=== PATIENT | male | born 1945 | race Caucasian/White ===

== ENCOUNTER 2017-07-30 15:54 | Emergency (ER) | payer MEDICARE, OTHER ==
[~2017-07-30] VITALS: Ht 177.8 cm; Wt 129.3 kg
[2017-07-30 16:10] VITALS: BP 154/70
[2017-07-30] MEDS ORDERED: TETANUS-DIPTH-ACEL PERTUSSIS 0.5ML SYRG IM ONE (17:15)
== END 2017-07-30 17:56 | disposition home or self-care (01) ==
LOC: ER 15:54
DX: S61.412A Laceration without foreign body of left hand, initial encounter (principal); I10 Essential (primary) hypertension; J44.9 Chronic obstructive pulmonary disease, unspecified; Z87.891 Personal history of nicotine dependence; W26.8XXA Contact with other sharp object(s), not elsewhere classified, initial encounter; Y93.89 Activity, other specified; Y92.89 Other specified places as the place of occurrence of the external cause; Y99.8 Other external cause status
CPT/HCPCS: 12001; 90471; 90715

== ENCOUNTER 2021-04-21 09:59 | Inpatient (IN) | payer MEDICARE, OTHER ==
[~2021-04-21] VITALS: Ht 177.8 cm; Wt 105.5 kg
[2021-04-21 10:40] LABS: Basophils # (auto) 0 10 ^3/uL (0-0.2); Basophils % (auto) 0.5 % (0.0-2.0); Eosinophils # (auto) 0 10 ^3/uL (0-0.8); Eosinophils % (auto) 0.6 % (0.0-7.0); Hematocrit 44.7 % (41.0-53.0); Hemoglobin 15.6 g/dL (13.5-17.5); Lymphocytes # (auto) 0.6 10 ^3/uL (0.4-5.4); Mean Corpuscular Hemoglobin 32.8 pg (28.0-32.0); Mean Corpuscular Hgb Conc. 34.8 g/dL (32.0-36.0); Mean Corpuscular Volume 94.4 fL (80.0-100.0); Monocytes # (auto) 0.7 10 ^3/uL (0-1.3); Neutrophils # (auto) 3.8 10 ^3/uL (1.6-8.6); Neutrophils % (auto) 73.9 % (37.0-80.0); Nucleated Red Blood Cells % 0.5 %; Red Blood Cells 4.74 10^6/uL (4.5-5.90); Red Cell Distribution Width 14.2 % (11.8-14.3); White Blood Cell 5.2 10^3/uL (4.4-10.8)
[2021-04-21 11:13] LABS: Albumin 2.6 g/dL (3.4-5.0); Calcium 8.1 mg/dL (8.5-10.1); Potassium 3.9 mmol/L (3.5-5.1)
[2021-04-21 11:30] LABS: Bilirubin, Total 0.6 mg/dL (0.2-1.0); Total Protein 8.2 g/dL (6.4-8.2)
[2021-04-21 11:37] LABS: Lactic Acid w/Reflex 2.2 mmol/L (0.4-2.0)
[2021-04-21 12:06] LABS: BUN/Creatinine Ratio 12.1
[2021-04-21] MEDS ORDERED: CHOLECALCIFEROL (VITD3) 2,000 UNIT CAP/TAB PO ONE (12:15)
[2021-04-21] MEDS ORDERED: ZINC SULFATE 220mg CAP or TAB PO ONE (12:15)
[2021-04-21] MEDS ORDERED: cefTRIAXone 1GM/50ML D5W 50 ML IV ONE (12:15)
[2021-04-21] MEDS ORDERED: SPIRONOLACTONE 25 MG TAB PO ONE (12:15)
[2021-04-21] MEDS ORDERED: AZITHROMYCIN 500MG/ 250ML 250 ML IV ONE (12:15)
[2021-04-21] MEDS ORDERED: FUROSEMIDE 40 MG/4 ML VIAL IV ONE (12:15)
[2021-04-21] MEDS ORDERED: ASCORBIC ACID 500 MG TAB PO ONE (12:15)
[2021-04-21] MEDS ORDERED: DexAMETHasone SOD PHOS 10MG/1ML VIAL INJ IV ONE (12:45)
[2021-04-21 13:30] LABS: Urine Bacteria NONE SEEN /hpf (None Seen); Urine Blood TRACE /uL (Negative); Urine Hyaline Cast FEW /lpf (0 - 2); Urine Mucus FEW (None Seen); Urine Specific Gravity 1.015 (1.001-1.035); Urine WBC 2 /hpf (0 - 3)
[2021-04-21] MEDS ORDERED: MORPHINE SULFATE INJECTION 2 MG/ML SYRG IV PRN (14:15)
[2021-04-21] MEDS ORDERED: NITROGLYCERIN 0.4 MG SL TAB SL PRN (14:15)
[2021-04-21 17:29] VITALS: BP 119/63
[2021-04-21] MEDS ORDERED: REMDESIVIR PER PHARMACY 0 ML IV SCH (18:30)
[2021-04-21] MEDS ORDERED: ACETAMINOPHEN 500 MG TAB PO PRN (18:30)
[2021-04-21] MEDS ORDERED: DEXTROSE (50%) 50ML SYRG IV PRN (18:30)
[2021-04-21] MEDS ORDERED: DOCUSATE SOD 100 MG CAP PO PRN (18:45)
[2021-04-21] MEDS ORDERED: ONDANSETRON HCL 4 MG/2 ML VIAL IV PRN (18:45)
[2021-04-21] MEDS ORDERED: LORazepam 0.5 MG TAB PO PRN (18:45)
[2021-04-21] MEDS ORDERED: FAMOTIDINE (10MG/ML) 2ML VL IV ONE (18:45)
[2021-04-21] MEDS ORDERED: MORPHINE SULFATE 4 MG/ML SYR/VIAL IV PRN (18:45)
[2021-04-21] MEDS ORDERED: CLINDAMYCIN 600MG IV 50 ML IV ONE (19:00)
[2021-04-21 20:00] VITALS: BP 97/44
[2021-04-21] MEDS ORDERED: REMDESIVIR 200 MG in NS 210ml LOADING DOSE ADULT IV ONE (20:30)
[2021-04-21 20:46] LABS: Hemoglobin 15.2 g/dL (13.5-17.5)
[2021-04-21 20:48] LABS: Hematocrit 41.9 % (41.0-53.0); Mean Corpuscular Hemoglobin 35.6 pg (28.0-32.0); Mean Corpuscular Hgb Conc. 36.3 g/dL (32.0-36.0); Mean Corpuscular Volume 98.3 fL (80.0-100.0); Red Blood Cells 4.26 10^6/uL (4.5-5.90); Red Cell Distribution Width 14.4 % (11.8-14.3); White Blood Cell 3.4 10^3/uL (4.4-10.8)
[2021-04-21 20:54] LABS: Basophils % (manual) 0 (0.0-2.0); Blast Cells 0; Eosinophils % (manual) 0 (0-7); Myelocytes % 0; Promyelocytes % 0; Reactive Lymphocytes 0
[2021-04-21 21:02] LABS: INR 1.29 (0.9-1.15); Partial Thromboplastin Time 30.5 sec (23.6-33.0)
[2021-04-21 21:05] LABS: Albumin 2.5 g/dL (3.4-5.0); Calcium 8.2 mg/dL (8.5-10.1); Magnesium 3.1 mg/dL (1.6-2.6); Potassium 4.5 mmol/L (3.5-5.1)
[2021-04-21 21:11] LABS: Phosphorus 3.2 mg/dL (2.5-4.90)
[2021-04-21 21:13] LABS: BUN/Creatinine Ratio 17.5; Bilirubin, Total 0.7 mg/dL (0.2-1.0); CRP High Sensitivity 13.7 mg/dL (< 0.3); Total Protein 8.2 g/dL (6.4-8.2)
[2021-04-21 21:19] LABS: Thyroid Stimulating Hormone 0.55 uIU/mL (0.358-3.74)
[2021-04-21 22:00] VITALS: BP 112/63
[2021-04-21] MEDS: BUDESONIDE (INHALATION) 180 MCG IH IN SCH (22:00)
[2021-04-21] MEDS: DOXYCYCLINE 100MG/250ML 250 ML IV SCH (22:09)
[2021-04-21] MEDS: POTASSIUM CHL 20 Meq TABLET PO SCH (22:10)
[2021-04-21] MEDS: ATORVASTATIN 20 MG TAB PO SCH (22:10)
[2021-04-21] MEDS: ENOXAPARIN SOD 40 MG/0.4 ML SYRINGE SC SCH (22:11)
[2021-04-21] MEDS: ACCU-CHEK COMFORT CURVE STRIP VI SCH (22:12)
[2021-04-21] MEDS: InsuLIN REG 1unit/0.01ml Soln (100units/ml) SC SCH (22:17)
[2021-04-21 22:52] LABS: Band Neutrophils % (manual) 4; Lymphocytes % (manual) 13 (10.0-50.0); Metamyelocytes % 1; Monocytes % (manual) 5 (0-12)
[2021-04-22 02:33] VITALS: BP 97/44
[2021-04-22 05:00] VITALS: BP 111/68
[2021-04-22] MEDS ORDERED: FUROSEMIDE 20 MG/2 ML VIAL IV SCH (06:00)
[2021-04-22] MEDS: CLINDAMYCIN 600MG IV 50 ML IV SCH ×3 (06:54→22:13)
[2021-04-22] MEDS: ACCU-CHEK COMFORT CURVE STRIP VI SCH ×4 (06:56→22:14)
[2021-04-22] MEDS: InsuLIN REG 1unit/0.01ml Soln (100units/ml) SC SCH ×5 (06:58→22:32)
[2021-04-22 07:01] LABS: Basophils # (auto) 0 10 ^3/uL (0-0.2); Basophils % (auto) 0.4 % (0.0-2.0); Eosinophils # (auto) 0 10 ^3/uL (0-0.8); Hematocrit 44.7 % (41.0-53.0); Hemoglobin 15.7 g/dL (13.5-17.5); Lymphocytes # (auto) 0.7 10 ^3/uL (0.4-5.4); Lymphocytes % (auto) 17.4 % (10.0-50.0); Mean Corpuscular Hemoglobin 33.9 pg (28.0-32.0); Mean Corpuscular Hgb Conc. 35.1 g/dL (32.0-36.0); Mean Corpuscular Volume 96.4 fL (80.0-100.0); Monocytes # (auto) 0.6 10 ^3/uL (0-1.3); Monocytes % (auto) 14.9 % (0.0-12.0); Neutrophils # (auto) 2.7 10 ^3/uL (1.6-8.6); Neutrophils % (auto) 67.3 % (37.0-80.0); Nucleated Red Blood Cells % 0.5 %; Red Blood Cells 4.64 10^6/uL (4.5-5.90); Red Cell Distribution Width 14.1 % (11.8-14.3)
[2021-04-22 07:13] LABS: INR 1.28 (0.9-1.15); Partial Thromboplastin Time 31.1 sec (23.6-33.0)
[2021-04-22] MEDS: BUDESONIDE (INHALATION) 180 MCG IH IN SCH ×2 (07:26→22:39)
[2021-04-22 07:31] LABS: Potassium 4.1 mmol/L (3.5-5.1)
[2021-04-22 08:06] LABS: BUN/Creatinine Ratio 21.2
[2021-04-22 08:07] LABS: Albumin 2.1 g/dL (3.4-5.0); Bilirubin, Total 0.6 mg/dL (0.2-1.0); Magnesium 2.5 mg/dL (1.6-2.6); Phosphorus 2.8 mg/dL (2.5-4.90); Total Protein 7.7 g/dL (6.4-8.2); Uric Acid 6.8 mg/dL (3.5-7.2)
[2021-04-22 09:00] VITALS: BP 113/55
[2021-04-22] MEDS ORDERED: ASPirin 81 mg TAB PO SCH (10:00)
[2021-04-22] MEDS ORDERED: FAMOTIDINE (10MG/ML) 2ML VL IV SCH (10:00)
[2021-04-22] MEDS: ASCORBIC ACID 1,000 MG TAB PO SCH (10:57)
[2021-04-22] MEDS: POTASSIUM CHL 20 Meq TABLET PO SCH (10:57)
[2021-04-22] MEDS: IVERMECTIN 3 MG TAB PO SCH (10:57)
[2021-04-22] MEDS: DOXYCYCLINE 100MG/250ML 250 ML IV SCH ×2 (10:59→22:14)
[2021-04-22] MEDS: ENOXAPARIN SOD 40 MG/0.4 ML SYRINGE SC SCH ×2 (10:59→22:13)
[2021-04-22] MEDS: DexAMETHasone SOD PHOS 10MG/1ML VIAL INJ IV SCH (11:00)
[2021-04-22] MEDS: CHOLECALCIFEROL (VITD3) 2,000 UNIT CAP/TAB PO SCH (11:00)
[2021-04-22 13:00] VITALS: BP 109/59
[2021-04-22] MEDS: REMDESIVIR 100mg 100 MG in SODIUM CHL 0.9% 230 ML IV SCH (15:59)
[2021-04-22 17:02] VITALS: BP 116/59
[2021-04-22] MEDS ORDERED: METF-370 PO (20:06)
[2021-04-22 22:00] VITALS: BP 96/61
[2021-04-22] MEDS: ATORVASTATIN 20 MG TAB PO SCH (22:12)
[2021-04-22] MEDS: ALBUTEROL SULF HFA 90MCG INH 200DOSE IN PRN (23:58)
[2021-04-23 05:07] VITALS: BP 115/58
[2021-04-23 06:09] LABS: Basophils # (auto) 0 10 ^3/uL (0-0.2); Eosinophils # (auto) 0 10 ^3/uL (0-0.8); Lymphocytes # (auto) 0.6 10 ^3/uL (0.4-5.4); Monocytes # (auto) 0.7 10 ^3/uL (0-1.3); Red Cell Distribution Width 14.3 % (11.8-14.3)
[2021-04-23 06:11] LABS: Basophils % (auto) 0.9 % (0.0-2.0); Eosinophils % (auto) 0.2 % (0.0-7.0); Hematocrit 44.2 % (41.0-53.0); Hemoglobin 15.8 g/dL (13.5-17.5); Lymphocytes % (auto) 12.4 % (10.0-50.0); Mean Corpuscular Hemoglobin 34.3 pg (28.0-32.0); Mean Corpuscular Hgb Conc. 35.8 g/dL (32.0-36.0); Mean Corpuscular Volume 95.9 fL (80.0-100.0); Monocytes % (auto) 13.8 % (0.0-12.0); Neutrophils # (auto) 3.5 10 ^3/uL (1.6-8.6); Neutrophils % (auto) 72.7 % (37.0-80.0); Nucleated Red Blood Cells % 0.1 %; Red Blood Cells 4.61 10^6/uL (4.5-5.90); White Blood Cell 4.9 10^3/uL (4.4-10.8)
[2021-04-23 06:28] LABS: BUN/Creatinine Ratio 24.1; Potassium 4.2 mmol/L (3.5-5.1)
[2021-04-23 06:29] LABS: Albumin 2.4 g/dL (3.4-5.0); Calcium 8.8 mg/dL (8.5-10.1)
[2021-04-23 06:31] LABS: Bilirubin, Total 0.6 mg/dL (0.2-1.0); Total Protein 7.9 g/dL (6.4-8.2)
[2021-04-23] MEDS: CLINDAMYCIN 600MG IV 50 ML IV SCH (06:38)
[2021-04-23] MEDS: ACCU-CHEK COMFORT CURVE STRIP VI SCH ×4 (06:41→21:45)
[2021-04-23] MEDS: InsuLIN REG 1unit/0.01ml Soln (100units/ml) SC SCH ×4 (06:44→21:46)
[2021-04-23 09:00] VITALS: BP 109/58
[2021-04-23] MEDS: BUDESONIDE (INHALATION) 180 MCG IH IN SCH ×2 (10:00→20:13)
[2021-04-23] MEDS: DexAMETHasone SOD PHOS 10MG/1ML VIAL INJ IV SCH (10:00)
[2021-04-23] MEDS ORDERED: traMADol HCL 50 MG TAB PO PRN (10:30)
[2021-04-23] MEDS: ASCORBIC ACID 1,000 MG TAB PO SCH (11:21)
[2021-04-23] MEDS: ENOXAPARIN SOD 40 MG/0.4 ML SYRINGE SC SCH ×2 (11:22→21:44)
[2021-04-23] MEDS: CHOLECALCIFEROL (VITD3) 2,000 UNIT CAP/TAB PO SCH (11:22)
[2021-04-23] MEDS: DOXYCYCLINE 100MG/250ML 250 ML IV SCH ×2 (11:26→21:45)
[2021-04-23 12:33] VITALS: BP 112/67
[2021-04-23] MEDS: IVERMECTIN 3 MG TAB PO SCH (13:01)
[2021-04-23] MEDS: ALBUTEROL SULF HFA 90MCG INH 200DOSE IN PRN ×2 (16:21→21:01)
[2021-04-23 17:00] VITALS: BP 117/64
[2021-04-23] MEDS: REMDESIVIR 100mg 100 MG in SODIUM CHL 0.9% 230 ML IV SCH (18:24)
[2021-04-23] MEDS: ATORVASTATIN 20 MG TAB PO SCH (21:44)
[2021-04-23 22:08] VITALS: BP 116/74
[2021-04-24 05:07] VITALS: BP 115/51
[2021-04-24] MEDS: ACCU-CHEK COMFORT CURVE STRIP VI SCH ×4 (06:54→22:00)
[2021-04-24] MEDS: InsuLIN REG 1unit/0.01ml Soln (100units/ml) SC SCH ×4 (06:54→23:27)
[2021-04-24 08:04] LABS: Chloride 103 mmol/L (98-107); Potassium 3.7 mmol/L (3.5-5.1); Sodium 132 mmol/L (136-145)
[2021-04-24 08:17] LABS: Alanine Aminotransferase 27 U/L (16-61); Albumin 2.2 g/dL (3.4-5.0); Alkaline Phosphatase 82 U/L (45-117); Anion Gap 7 (5-15); Aspartate Aminotransferase 47 U/L (15-37); BUN/Creatinine Ratio 24.1; Blood Urea Nitrogen 14 mg/dL (7-18); Calcium 8.8 mg/dL (8.5-10.1); Carbon Dioxide 22 mmol/L (21-32); GFR African American 176 mL/min; GFR Non-African American 145 mL/min; Glucose 145 mg/dL (74-106); Total Protein 7.1 g/dL (6.4-8.2)
[2021-04-24] MEDS: BUDESONIDE (INHALATION) 180 MCG IH IN SCH ×2 (08:20→21:01)
[2021-04-24] MEDS: ALBUTEROL SULF HFA 90MCG INH 200DOSE IN PRN ×2 (08:21→21:02)
[2021-04-24 08:27] LABS: Bilirubin, Total 0.7 mg/dL (0.2-1.0)
[2021-04-24 09:00] VITALS: BP 110/59
[2021-04-24] MEDS: CHOLECALCIFEROL (VITD3) 2,000 UNIT CAP/TAB PO SCH (10:00)
[2021-04-24] MEDS: ASCORBIC ACID 1,000 MG TAB PO SCH (10:00)
[2021-04-24] MEDS: ENOXAPARIN SOD 40 MG/0.4 ML SYRINGE SC SCH ×2 (10:00→23:28)
[2021-04-24] MEDS: IVERMECTIN 3 MG TAB PO SCH (10:00)
[2021-04-24 12:36] VITALS: BP 123/65
[2021-04-24] MEDS: DexAMETHasone SOD PHOS 4 MG/1ML SDV INJ IV SCH (16:30)
[2021-04-24] MEDS: DOXYCYCLINE 100MG/250ML 250 ML IV SCH ×2 (16:30→23:28)
[2021-04-24 17:00] VITALS: BP 109/61
[2021-04-24] MEDS: REMDESIVIR 100mg 100 MG in SODIUM CHL 0.9% 230 ML IV SCH (19:06)
[2021-04-24 22:00] VITALS: BP 118/56
[2021-04-24] MEDS: ATORVASTATIN 20 MG TAB PO SCH (23:28)
[2021-04-25 05:00] VITALS: BP 98/49
[2021-04-25] MEDS: InsuLIN REG 1unit/0.01ml Soln (100units/ml) SC SCH ×4 (06:46→22:21)
[2021-04-25] MEDS: ACCU-CHEK COMFORT CURVE STRIP VI SCH ×4 (07:00→22:00)
[2021-04-25 08:04] LABS: Calcium 9.3 mg/dL (8.5-10.1)
[2021-04-25 08:09] LABS: Albumin 2.5 g/dL (3.4-5.0); BUN/Creatinine Ratio 17.6; Bilirubin, Total 0.8 mg/dL (0.2-1.0); Total Protein 7.8 g/dL (6.4-8.2)
[2021-04-25 09:00] VITALS: BP 113/56
[2021-04-25] MEDS: ALBUTEROL SULF HFA 90MCG INH 200DOSE IN PRN (09:45)
[2021-04-25] MEDS: BUDESONIDE (INHALATION) 180 MCG IH IN SCH ×2 (09:45→22:00)
[2021-04-25] MEDS: DOXYCYCLINE 100MG/250ML 250 ML IV SCH ×2 (10:00→22:15)
[2021-04-25] MEDS: ASCORBIC ACID 1,000 MG TAB PO SCH (10:00)
[2021-04-25] MEDS: IVERMECTIN 3 MG TAB PO SCH (10:00)
[2021-04-25] MEDS: ENOXAPARIN SOD 40 MG/0.4 ML SYRINGE SC SCH ×2 (10:00→22:16)
[2021-04-25] MEDS: DexAMETHasone SOD PHOS 4 MG/1ML SDV INJ IV SCH (10:00)
[2021-04-25] MEDS: CHOLECALCIFEROL (VITD3) 2,000 UNIT CAP/TAB PO SCH (10:00)
[2021-04-25 13:00] VITALS: BP 135/73
[2021-04-25] MEDS: REMDESIVIR 100mg 100 MG in SODIUM CHL 0.9% 230 ML IV SCH (15:00)
[2021-04-25 18:19] VITALS: BP 122/68
[2021-04-25 22:00] VITALS: BP 123/58
[2021-04-25] MEDS: ATORVASTATIN 20 MG TAB PO SCH (22:15)
[2021-04-26] MEDS: ALBUTEROL SULF HFA 90MCG INH 200DOSE IN PRN ×2 (03:24→11:28)
[2021-04-26 05:00] VITALS: BP 98/40
[2021-04-26] MEDS: ACCU-CHEK COMFORT CURVE STRIP VI SCH ×3 (06:24→17:00)
[2021-04-26] MEDS: InsuLIN REG 1unit/0.01ml Soln (100units/ml) SC SCH ×3 (06:45→17:00)
[2021-04-26 08:00] VITALS: BP 118/55
[2021-04-26 09:00] VITALS: BP 118/55
[2021-04-26] MEDS: DOXYCYCLINE 100MG/250ML 250 ML IV SCH (10:27)
[2021-04-26] MEDS: CHOLECALCIFEROL (VITD3) 2,000 UNIT CAP/TAB PO SCH (10:27)
[2021-04-26] MEDS: IVERMECTIN 3 MG TAB PO SCH (10:27)
[2021-04-26] MEDS: DexAMETHasone SOD PHOS 4 MG/1ML SDV INJ IV SCH (10:27)
[2021-04-26] MEDS: ASCORBIC ACID 1,000 MG TAB PO SCH (10:27)
[2021-04-26] MEDS: ENOXAPARIN SOD 40 MG/0.4 ML SYRINGE SC SCH (10:28)
[2021-04-26] MEDS: BUDESONIDE (INHALATION) 180 MCG IH IN SCH (11:28)
[2021-04-26 13:00] VITALS: BP 134/59
[2021-04-26 15:17] VITALS: BP 119/60
[2021-04-26 17:00] VITALS: BP 125/49
== END 2021-04-26 18:01 | disposition home or self-care (01) | DRG 871 ==
LOC: ER 09:59 → TELE 14:02 → TELE-WESTW 15:49
PROVIDERS: ADMIT Hospitalist; ATTEND Internal Medicine
PROC: XW033E5 Introduction of Remdesivir Anti-infective into Peripheral Vein, Percutaneous Approach, New Technology Group 5 (ICD-10-PCS; principal; 2021-04-21)
PROC: 05HC33Z Insertion of Infusion Device into Left Basilic Vein, Percutaneous Approach (ICD-10-PCS; 2021-04-24)
PROC: B54NZZA Ultrasonography of Left Upper Extremity Veins, Guidance (ICD-10-PCS; 2021-04-24)
DX: A41.89 Other specified sepsis (principal); U07.1 COVID-19; J12.82 Pneumonia due to coronavirus disease 2019; J96.01 Acute respiratory failure with hypoxia; E44.0 Moderate protein-calorie malnutrition; L03.116 Cellulitis of left lower limb; J44.0 Chronic obstructive pulmonary disease with (acute) lower respiratory infection; D89.839 Cytokine release syndrome, grade unspecified; I87.2 Venous insufficiency (chronic) (peripheral); E88.09 Other disorders of plasma-protein metabolism, not elsewhere classified; Z68.33 Body mass index [BMI] 33.0-33.9, adult; E11.51 Type 2 diabetes mellitus with diabetic peripheral angiopathy without gangrene; E66.01 Morbid (severe) obesity due to excess calories; E78.5 Hyperlipidemia, unspecified; F17.200 Nicotine dependence, unspecified, uncomplicated; I11.9 Hypertensive heart disease without heart failure; Z79.82 Long term (current) use of aspirin; Z85.118 Personal history of other malignant neoplasm of bronchus and lung
CPT/HCPCS: 36415; 71045; 73620; 80053; 80061; 81001; 82306; 82728; 82962; 83036; 83605; 83615; 83735; 83880; 84100; 84443; 84484; 84550; 85007; 85025; 85027; 85379; 85610; 85730; 86141; 87040; 87077; 87086; 87186; 87426; 93005; 93970; 94640; 97110; 97116; 97163; 97530; G0378; J0696; J1100; J1815; J3490

== ENCOUNTER 2024-05-01 16:21 | Inpatient (IN) | payer MEDICARE, OTHER ==
[~2024-05-01] VITALS: Ht 182.9 cm; Wt 109.8 kg
[~2024-05-01 16:21] MED LIST: METF-370 PO
--- NOTE | 2024-05-01 17:13 | ED.PDOC ---
HPI Comments 78Y M with PMHx DM, HTN, COPD, and Afib presents to ED via EMS for chief complaint SOB with BLE weakness. Per EMS, 911 has been called 4 times today for lift assist. Pt currently lives with caregiver. Per pt, while sitting at the edge of his bed at home, he would begin to "slump down". Pt is a poor historian. Pt states he is on a blood thinner. Upon ED arrival, pt noted to have bilateral lower extremity cyanosis. No other symptoms reported. Chief Complaint: Shortness of Breath Time Seen by MD: 16:30 Primary Care Provider: MAXIME Reviewed Notes: Nurses Notes, [place] Notes, Medications, Allergies Allergies: Coded Allergies: NO KNOWN ALLERGIES (Unverified , 07/30/17) Home Meds Reported Medications Metformin Hydrochloride (Metformin Hcl) 500 Mg Tab, 500 MG PO BID for 30 Days, MG 04/22/21 Information Source: Patient, Emergency Med Personnel Mode of Arrival: EMS Brought in by: EMS Severity: Severe Timing: Days Duration: Since onset Onset: At Rest Cardiac Risk Factors: HTN, Diabetes PE Risk Factors: None History of: None Modifying Factors: Nothing Associated Signs and Symptoms: SOB, Other Past Medical History PAST MEDICAL HISTORY: COPD, DM, HTN Surgical History: Denies all surgeries Family History Family History: Reviewed,noncontributory to illness, No family hx of Cancer, No family hx of DM, No family hx of Heart rosa, No family hx of HTN, No family hx ofKidney rosa, No family hx of Liver rosa, No family hx of Lung rosa, No family hx of Stroke Social History Smoker: Non-Smoker Alcohol: Denies ETOH Use Drugs: Denies Drug Use Lives In: Home Constitutional: reports: weakness; denies: chills, diaphoresis, fatigue, fever, malaise, sweats, others EENTM: denies: blurred vision, double vision, ear bleeding, ear discharge, ear drainage, ear pain, ear ringing, eye pain, eye redness, hearing loss, mouth pain, mouth swelling, nasal discharge, nose bleeding, nose congestion, nose pain, photophobia, tearing, throat pain, throat swelling, voice changes, others Respiratory: reports: shortness of breath; denies: cough, hemoptysis, orthopnea, SOB at rest, SOB with excertion, stridor, wheezing, others Cardiovascular: denies: chest pain, dizzy spells, diaphoresis, Dyspnea on exertion, edema, irregular heart beat, left arm pain, lightheadedness, palpitations, PND, syncope, others Gastrointestinal: denies: abdomen distended, abdominal pain, blood streaked bowels, constipated, diarrhea, dysphagia, difficulty swallowing, hematemesis, melena, nausea, poor appetite, poor fluid intake, rectal bleeding, rectal pain, vomiting, others Genitourinary: denies: burning, dysuria, flank pain, frequency, hematuria, incontinence, penile discharge, penile sore, pain, testicle pain, testicle swelling, urgency, others Neurological: denies: dizziness, fainting, headache, left sided numbness, left sided weakness, numbness, paresthesia, pre-existing deficit, right sided numbness, right sided weakness, seizure, speech problems, tingling, tremors, weakness, others Musculoskeletal: denies: back pain, gout, joint pain, joint swelling, muscle pain, muscle stiffness, neck pain, others Integumetry: reports: change in color; denies: bruises, change in hair/nails, dryness, laceration, lesions, lumps, rash, wounds, others Allergic/Immunocompromised: denies: Difficulty Healing, Frequent Infections, Hives, Itching, others Hematologic/Lymphatic: denies: anemia, blood clots, easy bleeding, easy bruising, swollen glands, others Endocrine: denies: excessive hunger, excessive sweating, excessive thirst, excessive urination, flushing, intolerance to cold, intolerance to heat, unexplained weight gain, unexplained weight loss, others Psychiatric: denies: anxiety, bipolar disorder, depression, hopeless, panic disorder, schizophrenia, sleepless, suicidal, others All Other Systems: Reviewed and Negative Physical Exam General Appearance: Moderate Distress, Obese HEENT: Normal ENT Inspection, Pharynx Normal, TMs Normal Neck: Full Range of Motion, Non-Tender, Normal, Normal Inspection Respiratory: Decreased Breath Sounds (left lung), Wheezing (right lung) Cardiovascular: No Edema, No JVD, No Murmur, No Gallop, Normal Peripheral Pulses, Regular Rate/Rhythm Breast Exam: Deferred Gastrointestinal: No Organomegaly, Non Tender, No Pulsatile Mass, Normal Bowel Sounds, Soft Genitalia: Deferred Pelvic: Deferred Rectal: Deferred Extremities: No calf tenderness, Non-tender Musculoskeletal : Apperance: Normal Neurologic: Alert, green inspector II-XII nml as Tested, No Motor Deficits, Normal Affect, Normal Mood, No Sensory Deficits Cerebellar Function: Normal Reflexes: Normal Skin: Cyanosis (BLE) Lymphatic: No Adenopathy Was a procedure done? Was a procedure done?: No CP Differential Dx Differential Diagnosis: A-fib, Electrolyte Disorder X-Ray, Labs, Meds, VS Vital Signs Date Time Temp Pulse Resp B/P (MAP) Pulse Ox O2 Delivery O2 Flow Rate FiO2 05/02/24 00:00 149 24 109/76 (87) 90 05/01/24 22:00 136 28 136/85 (102) 93 05/01/24 20:00 117 05/01/24 20:00 97.9 121 21 134/77 (96) 96 97.9 05/01/24 19:30 Nasal Cannula* 4 36 05/01/24 19:00 117 18 116/72 (87) 95 05/01/24 17:25 100 Nasal Cannula* 6 44 05/01/24 17:24 129 19 123/67 (85) 97 05/01/24 17:05 26 93 Nasal Cannula* 6 44 05/01/24 16:57 97.6 148 26 120/65 (83) 92 05/01/24 16:55 150 05/01/24 16:24 156 Lab Test 05/01/24 21:45 05/01/24 19:53 05/01/24 18:07 05/01/24 17:09 Range/Units Urine Color Yellow Yellow Urine Clarity Clear Clear Urine pH 5.5 5.0-9.0 Urine Specific [place] 1.022 1.001-1.035 Urine Protein 1+ H Negative Urine Ketones Trace Negative Urine Blood Trace H Negative /uL Urine Nitrite Negative Negative Urine Bilirubin Negative Negative Urine Urobilinogen 2 H Negative mg/dL Urine Leukocyte Esterase Negative Negative /uL Urine RBC 16 0 - 3 /hpf Urine Microscopic WBC 2 0-3 /HPF Urine Squamous Epithelial Cells Few <5 /hpf Urine Bacteria None seen None Seen /hpf Urine Glucose Trace Normal mg/dL Troponin I High Sensitivity 17 17 18 </=54 ng/L White Blood Count 7.4 4.4-10.8 10^3/uL Red Blood Count 4.43 L 4.5-5.90 10^6/uL Hemoglobin 15.2 13.5-17.5 g/dL Hematocrit 45.7 41.0-53.0 % Mean Corpuscular Volume 103.2 H 80.0-100.0 fL Mean Corpuscular Hemoglobin 34.3 H 28.0-32.0 pg Mean Corpuscular Hemoglobin Concent 33.2 32.0-36.0 g/dL Red Cell Distribution Width 18.4 H 11.8-14.3 % Platelet Count 124 L 140-450 10^3/uL Mean Platelet Volume 8.4 6.9-10.8 fL Neutrophils (%) (Auto) 84.8 H 37.0-80.0 % Lymphocytes (%) (Auto) 7.1 L 10.0-50.0 % Monocytes (%) (Auto) 7.4 0.0-12.0 % Eosinophils (%) (Auto) 0.3 0.0-7.0 % Basophils (%) (Auto) 0.4 0.0-2.0 % Neutrophils # (Auto) 6.2 1.6-8.6 10 ^3/uL Lymphocytes # (Auto) 0.5 0.4-5.4 10 ^3/uL Monocytes # (Auto) 0.5 0-1.3 10 ^3/uL Eosinophils # (Auto) 0 0-0.8 10 ^3/uL Basophils # (Auto) 0 0-0.2 10 ^3/uL Nucleated Red Blood Cells 0.1 % Sodium Level 141 136-145 mmol/L Potassium Level 4.2 3.5-5.1 mmol/L Chloride Level 99 98-107 mmol/L Carbon Dioxide Level 34 H 20-31 mmol/L Anion Gap 8 5-15 Blood Urea Nitrogen 9 9-23 mg/dL Creatinine 0.84 0.700-1.30 mg/dL Glomerular Filtration Rate Calc 89 >90 mL/min BUN/Creatinine Ratio 10.7 10.0-20.0 Serum Glucose 150 H 74-106 mg/dL Calcium Level 9.4 8.7-10.4 mg/dL Total Bilirubin 1.3 H 0.2-1.0 mg/dL Aspartate Amino Transferase (AST) 31 13-40 U/L Alanine Aminotransferase (ALT) 19 7-40 U/L Alkaline Phosphatase 117 H 46-116 U/L B-Type Natriuretic Peptide 453.86 0-100 pg/mL Total Protein 7.5 5.7-8.2 g/dL Albumin 3.6 3.2-4.8 g/dL Current Medications Medications (Trade) Dose Ordered Sig/Leonor Route Start Time Stop Time Status Last Admin Diltiazem HCl (Cardizem Injection) 10 mg ONCE ONCE IV 05/01/24 17:15 05/01/24 17:31 DC 05/01/24 17:50 Diltiazem HCl (Cardizem Injection) 10 mg ONCE ONCE IV 05/02/24 00:45 05/02/24 00:46 DC 05/02/24 00:45 X-Ray, Labs, Meds, VS Comment PATIENT WILL BE ADMITTED FOR RESPIRATORY DISTRESS AND UNCONTROLLED AFIB PENDING CTA TO RULE OUT PE PATIENT GIVEN 10 MG DILTIAZEM FOR RATE CONTROL IMAGING: X-RAYS AND CT SCANS WERE REVIEWED AND INTERPRETED BY THIS PROVIDER, IMAGING SHOWS NO FRACTURES AND NO PATHOLOGICAL DISEASE. PENDING RADIOLOGY REVI EW. LABORATORY: LABS REVIEWED AND INTERPRETED BY THIS PROVIDER. NO SIGNIFICANT ABNORMALITIES NOTED. PATIENT HAS PRIOR MEDICAL VISITS REVIEWED. MED RECONCILIATION PERFORMED VITAL SIGNS REVIEWED Time of 1ST Reevaluation: 17:00 Reevaluation 1ST: Unchanged Patient Education/Counseling: Diagnosis, Treatment Family Education/Counseling: No Family Present Departure 1 Departure Time of Disposition: 00:48 Impression: Primary Impression: COPD (chronic obstructive pulmonary disease) Qualified Codes: J44.1 - Chronic obstructive pulmonary disease with (acute) exacerbation Additional Impressions: Pulmonary vascular congestion Uncontrolled diabetes mellitus Qualified Codes: E11.65 - Type 2 diabetes mellitus with hyperglycemia Disposition: ADMITTED INPATIENT Condition: Guarded Critical Care Note Critical Care Time?: No Stability Stability form required: No Heart Score Heart Score: Heart Score Response (Comments) Value History N/A 0 EKG N/A 0 Age N/A 0 Risk Factors N/A 0 Troponin N/A 0 Total 0 I personally scribed for ANTHONY FARIA ([email or web address]) on 05/01/24 at 17:13. Electronically submitted by Glory Garrett ([email or web address]). ANTHONY FARIA May 01, 2024 17:13
[2024-05-01 17:25] VITALS: O2SAT 100
[2024-05-01 17:36] LABS: Basophils # (auto) 0 10 ^3/uL (0-0.2); Basophils % (auto) 0.4 % (0.0-2.0); Eosinophils # (auto) 0 10 ^3/uL (0-0.8); Eosinophils % (auto) 0.3 % (0.0-7.0); Hematocrit 45.7 % (41.0-53.0); Hemoglobin 15.2 g/dL (13.5-17.5); Lymphocytes # (auto) 0.5 10 ^3/uL (0.4-5.4); Lymphocytes % (auto) 7.1 % (10.0-50.0); Mean Corpuscular Hemoglobin 34.3 pg (28.0-32.0); Mean Corpuscular Hgb Conc. 33.2 g/dL (32.0-36.0); Mean Corpuscular Volume 103.2 fL (80.0-100.0); Monocytes # (auto) 0.5 10 ^3/uL (0-1.3); Monocytes % (auto) 7.4 % (0.0-12.0); Neutrophils # (auto) 6.2 10 ^3/uL (1.6-8.6); Neutrophils % (auto) 84.8 % (37.0-80.0); Nucleated Red Blood Cells % 0.1 %; Platelet Count (auto) 124 10^3/uL (140-450); Red Blood Cells 4.43 10^6/uL (4.5-5.90); Red Cell Distribution Width 18.4 % (11.8-14.3); White Blood Cell 7.4 10^3/uL (4.4-10.8)
[2024-05-01] MEDS: dilTIAZem 25 MG/5 ML VIAL IV ONE (17:50)
[2024-05-01 17:54] LABS: Alanine Aminotransferase 19 U/L (7-40); Albumin 3.6 g/dL (3.2-4.8); Anion Gap 8 (5-15); Aspartate Aminotransferase 31 U/L (13-40); BUN/Creatinine Ratio 10.7 (10.0-20.0); Calcium 9.4 mg/dL (8.7-10.4); Chloride 99 mmol/L (98-107); Potassium 4.2 mmol/L (3.5-5.1); Sodium 141 mmol/L (136-145); Total Protein 7.5 g/dL (5.7-8.2)
--- NOTE | 2024-05-01 18:35 | DVH ---
BILATERAL LOWER EXTREMITY VENOUS DOPPLER ULTRASOUND CLINICAL HISTORY: foot discoloration TECHNIQUE: Grayscale ultrasound with compression, color Doppler flow imaging with pulsed duplex sonog keo of the bilateral lower extremity deep venous system from the common femoral veins through the p opliteal veins is performed. COMPARISON: 04/21/2021 FINDINGS: Right common femoral vein: Negative. Right greater saphenous vein: Negative. Right deep femoral vein: Negative. Right femoral vein: Negative. Right popliteal vein: Negative. Left common femoral vein: Negative. Left greater saphenous vein: Negative. Left deep femoral vein: Negative. Left femoral vein: Negative. Left popliteal vein: Negative. Other: The visualized bilateral popliteal trifurcation and posterior tibial veins demonstrate color f low. IMPRESSION: No sonographic evidence of deep venous thrombosis in either lower extremity at this time.
[2024-05-01 18:38] LABS: Alkaline Phosphatase 117 U/L (46-116); Bilirubin, Total 1.3 mg/dL (0.2-1.0); Blood Urea Nitrogen 9 mg/dL (9-23); Carbon Dioxide 34 mmol/L (20-31); Glucose 150 mg/dL (74-106)
[2024-05-01] MEDS: IOHEXOL 350 MG/ML 100ML IJ ONE ×2 (19:28→23:53)
[2024-05-01 21:59] LABS: Urine Bacteria None Seen /hpf (None Seen)
[2024-05-01 22:11] LABS: Urine Blood TRACE /uL (Negative); Urine Clarity Clear (Clear); Urine Color Yellow (Yellow); Urine Protein, UAD 1+ (Negative); Urine Specific Gravity 1.022 (1.001-1.035); Urine Squamous Epithelial Cell FEW /hpf (<5); Urine Urobilinogen 2 mg/dL (Negative); Urine WBC 2 /HPF (0-3); Urine pH 5.5 (5.0-9.0)
[2024-05-02] VITALS (17 sets, daily range): BP systolic 92–283; BP diastolic 29–205; PULSE 107–139; RESP 17–26; TEMP 97.9–98.3; O2SAT 72–99
[2024-05-02] MEDS: dilTIAZem 25 MG/5 ML VIAL IV ONE (00:45)
--- NOTE | 2024-05-02 00:56 | DVH ---
CLINICAL HISTORY: sob TECHNIQUE: CT angiogram of the chest was performed with intravenous contrast. 100 mL Omnipaque 350 in jected. 3D MIP reconstructed images were created and archived on the PACS system. This exam was perfo rmed according to our departmental dose optimization program. Up-to-date CT equipment and radiation d ose reduction techniques are utilized as appropriate. COMPARISON: None FINDINGS: Lower Neck: Unremarkable Axilla, Mediastinum and Marielos: No axillary lymphadenopathy. There are mildly enlarged mediastinal and hilar lymph nodes. Heart and Great Vessels: Mild cardiomegaly without pericardial effusion. At least mild coronary arter y calcifications. The thoracic aorta is patent and normal caliber containing mild mixed atherosclerot ic plaque. There is no central, segmental, or subsegmental pulmonary artery filling defects to sugges t pulmonary embolism Airway, Lungs and Pleura: Trachea central airways are patent. Moderate to large right and large left pleural effusions. Consolidation of the left upper and lower lobes. There is moderate dependent conso lidation in the right lower lobe. There is interlobular septal thickening and patchy ground-glass opa cification of the aerated right lung. Chest Wall and Osseous Structures: Mild thoracic spondylosis. No destructive osseous lesion. Mild sym metric bilateral gynecomastia. Mild chest wall edema. There is a sebaceous cyst in the posterior left chest wall. Upper abdomen: Partially imaged right renal cyst. Atrophic pancreas containing dystrophic calcificati ons. IMPRESSION: 1. No evidence of pulmonary embolism. 2. Mild cardiomegaly, interstitial pulmonary edema in the aerated right lung, large left and moderate to large right pleural effusions. 3. Moderate dependent consolidation in the right lower lobe and complete consolidation of the left mariah ng, likely atelectasis. A component of superimposed pneumonia could contribute 4. Mild calcified coronary artery disease.
[2024-05-02] MEDS ORDERED: ACETAMINOPHEN 325 MG TAB PO PRN (01:45)
[2024-05-02] MEDS ORDERED: MORPHINE SULFATE INJ 2 MG/ml SYRG IV PRN (01:45)
[2024-05-02] MEDS ORDERED: NITROGLYCERIN 0.4 MG SL TAB SL PRN (01:45)
[2024-05-02] MEDS ORDERED: levoFLOXacin 500MG 100 ML IV SCH (02:45)
[2024-05-02 02:56] LABS: COVID19 ANTIGEN SOFIA FIA NEGATIVE (NEGATIVE)
[2024-05-02 02:56] LABS: INR 1.28 (0.9-1.15); Partial Thromboplastin Time 25.6 SEC (24.5-34.5); Prothrombin Time 13.2 sec (9.3-11.8)
[2024-05-02 02:57] LABS: Rapid Influenza A Negative (Negative); Rapid Influenza B Negative (Negative)
[2024-05-02] MEDS ORDERED: DEXTROSE (50%) 50ML SYRG IV PRN ×2 (03:00→13:00)
--- NOTE | 2024-05-02 03:04 | DVHHPRES ---
History of Present Illness Resident Creating Document: DENISHA DOUGHERTY RESIDENT History of Present Illness KATH VILLEGAS is a 78 y o male with PMH of type 2 DM, HTN, AFib, COPD on home oxygen presented to the ED with the chief complaints of bilateral lower leg weakness and ongoing shortness of breath. Patient is poor historian, unable to obtain a complete history but patient is mentioning when he is trying to stand up, he feels his legs are giving up and weakness which is more concerning for him to visit ED. patient has lives with a motion picture set grip. On my assessment patient denies fever, cold, nausea, vomiting, diaphoresis, and other acute associated symptoms. Knees PMH: Type 2 DM, HTN, AFib, COPD on home oxygen PSH: Denies Family history: Reviewed, noncontributory Social history: Lives with a motion picture set grip. Denies smoking, alcohol and other drug abuse Allergies: No known allergies Home medication Review of Systems Review of Systems Patient seen and examined at the bedside. Patient is hard of hearing, unable to answer all the questions. Patient is currently on [address] angiography of chest showing large left and moderate to large right pleural effusion and possibility of pneumonia. Ordered arterial dulpex, pending. Constitutional: Yes: Weakness Eyes: No: Pain, Vision change, Conjunctivae inflammation, Eyelid inflammation, Other, Redness ENT: No: Ear pain, Ear discharge, Nose pain, Nose discharge, Nose congestion, Mouth pain, Mouth swelling, Throat pain, Throat swelling, Other Respiratory: Shortness of breath, Wheezing Cardiovascular: Edema Gastrointestinal: No: Nausea, Vomiting, Abdominal Pain, Diarrhea, Constipation, Melena, Hematochezia, Other Genitourinary: No Dysuria, No Frequency, No Incontinence, No Hematuria, No Retention, No Other Musculoskeletal: No: other, neck pain, shoulder pain, arm pain, back pain, hand pain, leg pain, foot pain Skin: Lesions, Bruising Neurological: No: Weakness, Numbness, Incoordination, Change in speech, Confusion, Seizures, Other Allergies: Coded Allergies: NO KNOWN ALLERGIES (Unverified , 07/30/17) Medications Current Medications Medications Dose Ordered Sig/Leonor Route Start Time Stop Time Status Last Admin Dose Admin Acetaminophen 650 mg Q6HP PRN PO 05/02/24 01:45 Morphine Sulfate 2 mg Q4HPRN PRN IV 05/02/24 01:45 Nitroglycerin 0.4 mg Q5MINP PRN SL 05/02/24 01:45 Morphine Sulfate 2 mg Q30M PRN IV 05/02/24 01:45 Levofloxacin/ Dextrose 100 ml @ 100 mls/hr DAILY IV 05/02/24 02:45 Azithromycin 250 ml @ 125 mls/hr DAILY IV 05/03/24 10:00 Enoxaparin Sodium 110 mg Q12HR SC 05/02/24 02:45 Albuterol 2.5 mg Q6HPRN PRN NEB 05/02/24 02:45 Exam Vital Signs Vital Signs Date Time Temp Pulse Resp B/P (MAP) Pulse Ox O2 Delivery O2 Flow Rate FiO2 05/02/24 00:00 119 05/02/24 00:00 24 109/76 (87) 90 05/01/24 20:00 97.9 97.9 05/01/24 19:30 Nasal Cannula* 4 36 Exam Pt is lying on bed General Appearance: Alert, Oriented X3, Cooperative, mild distress HEENT: Atraumatic, Mucous membranes moist/pink Respiratory: B/l crackles Cardiovascular: Regular rate, Normal S1, Normal S2 Abdominal: Active bowel sounds, Soft, no distention, no tenderness Extremities: 2+ edema in BLE, bluish discoloration, no palpable pulses,swelling in upper arms with multiple skin bruieses Skin: Multiple skin bruises, abrasion, bleeding and tumor like mass in the left upper extremity Neuro: Normal speech Psych/Mental Status: Mental status NL, Mood NL Nurse was there as sharperone during examination Labs/Xrays Labs Test 05/02/24 02:16 05/02/24 02:11 05/01/24 21:45 05/01/24 19:53 Range/Units Thyroid Stimulating Hormone (TSH) 2.35 0.55-4.78 uIU/mL Urine Color Yellow Yellow Urine Clarity Clear Clear Urine pH 5.5 5.0-9.0 Urine Specific [place] 1.022 1.001-1.035 Urine Protein 1+ H Negative Urine Ketones Trace Negative Urine Blood Trace H Negative /uL Urine Nitrite Negative Negative Urine Bilirubin Negative Negative Urine Urobilinogen 2 H Negative mg/dL Urine Leukocyte Esterase Negative Negative /uL Urine RBC 16 0 - 3 /hpf Urine Microscopic WBC 2 0-3 /HPF Urine Squamous Epithelial Cells Few <5 /hpf Urine Bacteria None seen None Seen /hpf Urine Glucose Trace Normal mg/dL Troponin I High Sensitivity 17 </=54 ng/L Test 05/01/24 17:09 Range/Units White Blood Count 7.4 4.4-10.8 10^3/uL Red Blood Count 4.43 L 4.5-5.90 10^6/uL Hemoglobin 15.2 13.5-17.5 g/dL Hematocrit 45.7 41.0-53.0 % Mean Corpuscular Volume 103.2 H 80.0-100.0 fL Mean Corpuscular Hemoglobin 34.3 H 28.0-32.0 pg Mean Corpuscular Hemoglobin Concent 33.2 32.0-36.0 g/dL Red Cell Distribution Width 18.4 H 11.8-14.3 % Platelet Count 124 L 140-450 10^3/uL Mean Platelet Volume 8.4 6.9-10.8 fL Neutrophils (%) (Auto) 84.8 H 37.0-80.0 % Lymphocytes (%) (Auto) 7.1 L 10.0-50.0 % Monocytes (%) (Auto) 7.4 0.0-12.0 % Eosinophils (%) (Auto) 0.3 0.0-7.0 % Basophils (%) (Auto) 0.4 0.0-2.0 % Neutrophils # (Auto) 6.2 1.6-8.6 10 ^3/uL Lymphocytes # (Auto) 0.5 0.4-5.4 10 ^3/uL Monocytes # (Auto) 0.5 0-1.3 10 ^3/uL Eosinophils # (Auto) 0 0-0.8 10 ^3/uL Basophils # (Auto) 0 0-0.2 10 ^3/uL Nucleated Red Blood Cells 0.1 % Sodium Level 141 136-145 mmol/L Potassium Level 4.2 3.5-5.1 mmol/L Chloride Level 99 98-107 mmol/L Carbon Dioxide Level 34 H 20-31 mmol/L Anion Gap 8 5-15 Blood Urea Nitrogen 9 9-23 mg/dL Creatinine 0.84 0.700-1.30 mg/dL Glomerular Filtration Rate Calc 89 >90 mL/min BUN/Creatinine Ratio 10.7 10.0-20.0 Serum Glucose 150 H 74-106 mg/dL Calcium Level 9.4 8.7-10.4 mg/dL Total Bilirubin 1.3 H 0.2-1.0 mg/dL Aspartate Amino Transferase (AST) 31 13-40 U/L Alanine Aminotransferase (ALT) 19 7-40 U/L Alkaline Phosphatase 117 H 46-116 U/L B-Type Natriuretic Peptide 453.86 0-100 pg/mL Total Protein 7.5 5.7-8.2 g/dL Albumin 3.6 3.2-4.8 g/dL Assessment/Plan Assessment/Plan # ? COPD exacerbation # acute Gram-positive Gram-negative bacterial PNA - evident on CT - currently on 6 L oxygen NC - started Rocephin and azithromycin - ordered respiratory cultures # AFib with RVR with secondary hypercoagulable state - monitor continuously - given 2 doses of Cardizem - started amiodarone drip - therapeutic Lovenox started # Questionable systolic versus diastolic CHF exacerbation - elevated BNP - ordered echocardiogram - Lasix 40 daily - watch for blood pressure and electrolytes # H/o PAD - pending arterial duplex # ruled out DVT - venous scan negative # ? skin tumor on left upper arm - outpatient management # uncontrolled t2 dm - accuchecks and ISS PUD PPX: Protonix VTE PPX: Therapeutic Lovenox Diet: Cardiac diet Goals of care discussed with the patient for more than 27 minutes: Full code status Case discussed with Dr. Colón, patient and nurse Plan discussed with: Patient My Orders Orders - DENISHA DOUGHERTY RESIDENT Procedure Category Date Status Time Admit ADMIT 05/02/24 Transmitted 01:40 Allergies KIRSTEN 05/02/24 In Process 01:40 Code Status CODE 05/02/24 Transmitted 01:40 Complete Blood Count LAB 05/02/24 Logged 04:00 Comprehensive LAB 05/02/24 Logged Metabolic Panel 04:00 Cardiac DIET 05/02/24 Transmitted Diet-2gna,Lofat,Lochol Breakfast Echo 2d Mode Cardiac US 05/02/24 Logged DOP 01:40 Condition: Stable KIRSTEN 05/02/24 In Process 01:40 Acetaminophen Tablet PHA 05/02/24 In Process (Tylenol Tablet) 01:45 Morphine Sulfate PHA 05/02/24 In Process Injection 01:45 Nitroglycerin PHA 05/02/24 In Process Sublingual (Ntrostat 01:45 Morphine Sulfate PHA 05/02/24 In Process Injection 01:45 Oxygen By Nasal RT 05/02/24 Transmitted Cannula 01:40 Stat Ekg For Chest KIRSTEN 05/02/24 In Process Pain 01:40 Notify Of Changes KIRSTEN 05/02/24 In Process From Base 01:40 Lawn And Garden Technician For KIRSTEN 05/02/24 In Process 24 Hours 01:40 Emergency Dysrhythmia KIRSTEN 05/02/24 In Process Protocol 01:40 Rhythm Strips Once KIRSTEN 05/02/24 In Process Every Shift 01:40 Bilat Low Ext Art US 05/02/24 Logged Duplex 08:00 D-Dimer LAB 05/02/24 In Process 01:57 PTPTT LAB 05/02/24 In Process 01:57 Drug Screen LAB 05/02/24 In Process 01:57 Hemoglobin A1c LAB 05/02/24 In Process 01:57 Rapid Influenza A&B LAB 05/02/24 In Process 01:57 Covid19 Antigen Meghan LAB 05/02/24 In Process Levofloxacin 500mg PHA 05/02/24 In Process (Levaquin 500mg/ 100m 02:45 Azithromycin 500mg/ PHA 05/02/24 Logged 250ml (Zithromax 50 10:00 Azithromycin 500mg/ PHA 05/02/24 In Process 250ml (Zithromax 50 02:45 Enoxaparin Sodium PHA 05/02/24 In Process (Lovenox) 02:45 Albuterol Medneb PHA 05/02/24 In Process (Ventolin Medneb) 02:45 Respiratory Culture MARISOL 05/02/24 Uncollected W/ Gs 02:47 Date of Service: May 02, 2024 Billing Provider: TITUS COLÓN MD Common Visit Codes: 87084-[id number] INP/OBS CARE (HIGH) DENISHA DOUGHERTY RESIDENT May 02, 2024 03:04 TITUS COLÓN MD May 03, 2024 00:25
[2024-05-02] MEDS: ENOXAPARIN SOD 100 MG/1 ML SYRINGE SC SCH (03:37)
[2024-05-02] MEDS: METOPROLOL SUCCINATE XL 50 MG TAB PO ONE (03:40)
[2024-05-02] MEDS: AZITHROMYCIN 500MG/ 250ML 250 ML IV ONE (03:44)
[2024-05-02 04:24] LABS: Barbiturate Scree,Urine Neg (NEGATIVE); Benzodiazephine Screen, Urine Neg (NEGATIVE); Cannabinoid Screen, Urine Neg (NEGATIVE); Cocaine Screen, Urine Neg (NEGATIVE); Opiate Scree,Urine Neg (NEGATIVE); Phencyclidine Screen, Urine Neg (NEGATIVE)
[2024-05-02] MEDS: FUROSEMIDE 40 MG/4 ML VIAL IV SCH (05:14)
[2024-05-02] MEDS: cefTRIAXone 1GM/50ML D5W 50 ML IV SCH (05:15)
[2024-05-02] MEDS: AMIODARONE BOLUS KIT 100 ML IV ONE (05:22)
[2024-05-02] MEDS: AMIODARONE 360mg/200mL PREMIX 200 ML IV ONE ×2 (05:41→11:18)
[2024-05-02] MEDS: ALBUTEROL SULF 2.5 MG/0.5ML(0.5%) NEB SOLN NEB PRN ×2 (06:24→10:20)
[2024-05-02 06:42] LABS: Basophils # (auto) 0 10 ^3/uL (0-0.2); Eosinophils # (auto) 0 10 ^3/uL (0-0.8); Lymphocytes # (auto) 0.3 10 ^3/uL (0.4-5.4); Platelet Count (auto) 122 10^3/uL (140-450); White Blood Cell 12.4 10^3/uL (4.4-10.8)
[2024-05-02 06:44] LABS: Basophils % (auto) 0.2 % (0.0-2.0); Hematocrit 41.2 % (41.0-53.0); Hemoglobin 14.1 g/dL (13.5-17.5); Lymphocytes % (auto) 2.1 % (10.0-50.0); Mean Corpuscular Hemoglobin 35.3 pg (28.0-32.0); Mean Corpuscular Hgb Conc. 34.3 g/dL (32.0-36.0); Monocytes # (auto) 0.9 10 ^3/uL (0-1.3); Monocytes % (auto) 7.4 % (0.0-12.0); Neutrophils # (auto) 11.2 10 ^3/uL (1.6-8.6); Neutrophils % (auto) 90.3 % (37.0-80.0); Red Cell Distribution Width 18.3 % (11.8-14.3)
[2024-05-02 06:54] LABS: Alanine Aminotransferase 17 U/L (7-40); Albumin 3.6 g/dL (3.2-4.8); Alkaline Phosphatase 102 U/L (46-116); Anion Gap 7 (5-15); Aspartate Aminotransferase 24 U/L (13-40); BUN/Creatinine Ratio 9.5 (10.0-20.0); Calcium 9.6 mg/dL (8.7-10.4); Chloride 98 mmol/L (98-107); Potassium 4.2 mmol/L (3.5-5.1); Sodium 139 mmol/L (136-145); Total Protein 7.4 g/dL (5.7-8.2)
[2024-05-02 06:56] LABS: Bilirubin, Total 1.2 mg/dL (0.2-1.0); Blood Urea Nitrogen 9 mg/dL (9-23); Carbon Dioxide 34 mmol/L (20-31); Glucose 179 mg/dL (74-106)
[2024-05-02] MEDS: POTASSIUM CHL 20MEQ/100ML 100 ML IV ONE (07:30)
[2024-05-02] MEDS: ACCU-CHEK COMFORT CURVE STRIP VI SCH ×2 (07:36→18:18)
[2024-05-02] MEDS: InsuLIN REG 1unit/0.01ml Soln (100units/ml) SC SCH ×2 (07:40→18:22)
[2024-05-02] MEDS ORDERED: VANCOMYCIN PER PHARMACY 0 MG IV SCH (08:30)
[2024-05-02] MEDS ORDERED: ACETYLCYSTEINE 10 %(100MG/ML) SOL 4ML NEB ONE (08:30)
[2024-05-02] MEDS ORDERED: guaiFENesin 200 MG/10 ML UD GT PRN (08:30)
[2024-05-02] MEDS ORDERED: HEPARIN SODIUM (PORCINE) 5000 UNITS/ML 1ML VIAL IV ONE (08:45)
[2024-05-02] MEDS: MEROPENEM 1GM IVPB 50 ML IV ONE (09:01)
[2024-05-02 09:13] LABS: INR 1.41 (0.9-1.15); Partial Thromboplastin Time 30.8 SEC (24.5-34.5); Prothrombin Time 14.4 sec (9.3-11.8)
--- NOTE | 2024-05-02 09:32 | DVH ---
CLINICAL HISTORY: cold extremities and cyanosis TECHNIQUE: Bilateral lower extremity arterial duplex exam was performed. Grayscale, color Doppler, an d spectral waveform analysis was performed. COMPARISON: None FINDINGS: Right Lower Extremity: Arterial calcification throughout the right lower extremity. Triphasic wavefor ms demonstrated in the common femoral and proximal to mid SFA. Biphasic waveforms throughout the rest of the right lower extremity. No focal occlusion visualized. Left Lower Extremity: Arterial calcification throughout the left lower extremity. Triphasic waveforms in the common femoral, SFA, and popliteal arteries. Biphasic waveforms in the rest of the left lower extremity. Bilateral lower extremity subcutaneous edema noted. EXAMINATION DATA: RIGHT PSV (cm/sec) RESIDENTIAL DIRECTOR 65 Profunda 53 SFA Prox 70 SFA Mid 57 SFA Dist 53 POP A 47 KNOT TYING OPERATOR 28 DPA 35 SABRINA 28 LEFT PSV (cm/sec) RESIDENTIAL DIRECTOR 57 Profunda 45 SFA Prox 56 SFA Mid 61 SFA Dist 45 POP A 36 KNOT TYING OPERATOR 44 DPA 29 SABRINA 44 IMPRESSION: Peripheral arterial disease as described above with no evidence of focal occlusion or significant oscar nosis in either lower extremity.
--- NOTE | 2024-05-02 09:55 | ECG ---
[facility] Test Date: 2024-05-01 Test Time: 16:24:54 Pat Name: KATH VILLEGAS Department: er Room: [address] [place] [address] Gender: M Filter Cleaner: gp : 1945 Requested By: ANTHONY FARIA Order Number: [id number] Reading MD: Royce Rodriguez Measurements Intervals [place] Rate: 156 P: 0 NE: 0 QRS: 18 QRSD: 72 T: 0 QT: 307 QTc: 495 Interpretive Statements Atrial fibrillation with rapid V-rate Low voltage, precordial leads Nonspecific T abnrm, anterolateral leads Baseline wander in lead(s) V1,V5 Electronically Signed On 05-02-2024 12:00:49 PST by Royce Rodriguez Please click the below link to view image of tracing.
[2024-05-02] MEDS ORDERED: ENOXAPARIN SOD 40 MG/0.4 ML SYRINGE SC SCH (10:00)
[2024-05-02] MEDS: VANCOMYCIN 1.75GM/350ML 350 ML IV ONE (10:08)
[2024-05-02] MEDS: ACETYLCYSTEINE 10 %(100MG/ML) SOL 4ML NEB SCH ×2 (10:19→23:50)
[2024-05-02 10:25] LABS: Basophils # (auto) 0 10 ^3/uL (0-0.2); Eosinophils # (auto) 0 10 ^3/uL (0-0.8); Hemoglobin 14.3 g/dL (13.5-17.5); Lymphocytes # (auto) 0.4 10 ^3/uL (0.4-5.4); Lymphocytes % (auto) 3.2 % (10.0-50.0); Platelet Count (auto) 128 10^3/uL (140-450)
[2024-05-02 10:28] LABS: Basophils % (auto) 0.1 % (0.0-2.0); Hematocrit 43.7 % (41.0-53.0); Mean Corpuscular Hemoglobin 33.5 pg (28.0-32.0); Mean Corpuscular Hgb Conc. 32.8 g/dL (32.0-36.0); Mean Corpuscular Volume 102.3 fL (80.0-100.0); Monocytes # (auto) 1.1 10 ^3/uL (0-1.3); Monocytes % (auto) 8.5 % (0.0-12.0); Neutrophils # (auto) 11.8 10 ^3/uL (1.6-8.6); Neutrophils % (auto) 88.2 % (37.0-80.0); Nucleated Red Blood Cells % 0.1 %; Red Blood Cells 4.27 10^6/uL (4.5-5.90); Red Cell Distribution Width 18.2 % (11.8-14.3); White Blood Cell 13.4 10^3/uL (4.4-10.8)
[2024-05-02] MEDS ORDERED: HEPARIN DRIP/D5W 100UNITS/ML 250 ML IV SCH (12:00)
--- NOTE | 2024-05-02 13:53 | DVH ---
EXAM: XY CHEST PORTABLE Indication: POST THORACENTESIS Technique: Single frontal view of the chest was obtained Comparison: CHEST PORTABLE on DOS: 04/22/21, CHEST PORTABLE on DOS: 04/21/21 FINDINGS: Lines and Tubes: None Lungs: Small bilateral pleural effusions. Bibasilar opacities. Pulmonary edema. No pneumothorax. Cardiomediastinal contours: Cardiomegaly. Bones: No acute osseous abnormality. IMPRESSION: Cardiomegaly with small bilateral pleural effusions and pulmonary edema.
[2024-05-02 14:05] LABS: Amphetamine Screen, Urine Neg (NEGATIVE)
--- NOTE | 2024-05-02 14:05 | DVH ---
PROCEDURE: ULTRASOUND GUIDED THORACENTESIS USING TEMPORARY CATHETER HISTORY: THORA DOCUMENTATION: Informed consent was obtained and a procedural time out was performed. FINDINGS: The risks and benefits of the procedure including bleeding, infection and pneumothorax were explained to the patient and written informed consent obtained. Optimal site for puncture long the left posterior chest wall was determined using real-time ultrasou nd and the region sterilized. Local anesthesia was instilled. A 5 Welsh catheter was then advanced into the pleural space and 3.9 liters of starw colored fluid was removed. The patient tolerated the procedure well. IMPRESSION: Ultrasound guided left thoracentesis.
[2024-05-02] MEDS: MEROPENEM 1GM IVPB 50 ML IV SCH (14:34)
[2024-05-02 16:12] LABS: Base Excess 3.2 mmol/L (-2.0-3.0)
[2024-05-02 17:12] LABS: Body Fluid Polymorphonuclear 12 % (0-25); Body Fluid Red Blood Cells 175 CUMM (0-2000); Body Fluid White Blood Cells 107 CUMM (0-200)
--- NOTE | 2024-05-02 17:29 | DVH ---
CHEST RADIOGRAPH Indication: desaturations and confusion Technique: Single frontal view of the chest was obtained Comparison: XY CHEST PORTABLE on DOS: 05/02/24, CHEST PORTABLE on DOS: 04/22/21, CHEST PORTABLE on DOS: 04/21/21, XY CHEST PORTABLE on DOS: 05/02/24 FINDINGS: Lines and Tubes: None Lungs: Small bilateral pleural effusions. Bibasilar opacities. Pulmonary edema. No pneumothorax. Cardiomediastinal contours: Cardiomegaly. Bones: No acute osseous abnormality. IMPRESSION: Cardiomegaly with small bilateral pleural effusions and pulmonary edema. Decreased since prior study.
[2024-05-02] MEDS: methylPREDNISolone SOD SUCC 40 MG/ML VL IV SCH (18:36)
[2024-05-02 19:18] LABS: Base Excess 2.7 mmol/L (-2.0-3.0)
--- NOTE | 2024-05-02 21:13 | DVHPNRES ---
Progress Note Date Seen: May 02, 2024 Resident Creating Document: GARRY MCCALL RESIDENT Has the PT tested + for MRSA If YES, has PT been informed?: No Medical Necessity Reason Pt with a Central, PICC or Fol: Yes The following are medically ne: Chavez Catheter Subjective Review of Systems Patient was seen in the ED, acute care hospitalization extremely poor historian Objective vital signs Vital Sign Date Time Temp Pulse Resp B/P (MAP) Pulse Ox O2 Delivery O2 Flow Rate FiO2 05/02/24 19:26 130 136/97 90 Nasal BiPAP Mask 100 05/02/24 18:55 26 05/02/24 10:20 4.0 05/02/24 07:54 97.6 97.6 Total Intake and Output 05/01/24 05/01/24 05/02/24 15:00 23:00 07:00 Intake Total 33.33 ml Balance 33.33 ml medications Current Medications Medications Dose Ordered Sig/Leonor Route Start Time Stop Time Status Last Admin Dose Admin Acetaminophen 650 mg Q6HP PRN PO 05/02/24 01:45 Morphine Sulfate 2 mg Q4HPRN PRN IV 05/02/24 01:45 Nitroglycerin 0.4 mg Q5MINP PRN SL 05/02/24 01:45 Morphine Sulfate 2 mg Q30M PRN IV 05/02/24 01:45 Furosemide 40 mg DAILY IV 05/02/24 04:15 05/02/24 10:09 40 MG Guaifenesin 200 mg Q4HP PRN GT 05/02/24 08:30 Vancomycin HCl 0 ml @ 0 mls/hr UD IV 05/02/24 08:30 Meropenem 50 ml @ 17 mls/hr Q8HR IV 05/02/24 14:00 05/02/24 14:34 17 MLS/HR Vancomycin HCl 250 ml @ 200 mls/hr Q14H IV 05/03/24 00:00 Diagnostic Test (Pha) 1 strip Q6HR 05/02/24 18:00 05/02/24 18:18 1 STRIP Insulin Human Regular Q6HR SC 05/02/24 18:00 05/02/24 18:22 2 UNITS Dextrose 50 ml UD PRN IV 05/02/24 13:00 Ipratropium Colbert 0.5 mg Q6HWA NEB 05/02/24 18:00 Levalbuterol HCl 1.25 mg Q6HR NEB 05/02/24 18:00 Acetylcysteine 100 mg Q6HR NEB 05/02/24 18:00 Methylprednisolone Sodium Succinate 40 mg Q8H IV 05/02/24 18:30 05/02/24 18:36 40 MG Nystatin 1 applic BID TOP 05/02/24 22:00 Examination Patient seen and examined at the bedside. Patient is hard of hearing, unable to answer all the questions. Patient is currently on [address] angiography of chest showing large left and moderate to large right pleural effusion and possibility of pneumonia. Ordered arterial dulpex, pending. Constitutional: Yes: Weakness Eyes: No: Pain, Vision change, Conjunctivae inflammation, Eyelid inflammation, Other, Redness ENT: No: Ear pain, Ear discharge, Nose pain, Nose discharge, Nose congestion, Mouth pain, Mouth swelling, Throat pain, Throat swelling, Other Respiratory: Shortness of breath, Wheezing Cardiovascular: Edema Gastrointestinal: No: Nausea, Vomiting, Abdominal Pain, Diarrhea, Constipation, Melena, Hematochezia, Other Genitourinary: No Dysuria, No Frequency, No Incontinence, No Hematuria, No Retention, No Other Musculoskeletal: No: other, neck pain, shoulder pain, arm pain, back pain, hand pain, leg pain, foot pain Skin: Lesions, Bruising Neurological: No: Weakness, Numbness, Incoordination, Change in speech, Confusion, Seizures, Other laboratory and microbiology Laboratory Tests 05/02/24 10:10 05/02/24 06:15 Test 05/02/24 06:15 Range/Units Serum Glucose 179 H 74-106 mg/dL Microbiology Date/Time Source Procedure Growth Status 05/02/24 13:10 Pleural Fluid Received Labs and/or images reviewed: Labs reviewed by me, Image(s) reviewed by me Problem List/Assessment/Plan Problem List/Assessment/Plan ICU Course: Nirav Junior, a 78-year-old male with a history of type 2 diabetes, hypertension, atrial fibrillation, and COPD on home oxygen, presented to the ED with bilateral lower leg weakness and ongoing shortness of breath. He reports his legs giving out when trying to stand, which prompted his visit. He denies fever, cold, nausea, vomiting, diaphoresis, and other acute symptoms. He lives with a powder compounder and denies smoking, alcohol, and drug abuse. He has no known allergies and his home medications were not specified. Hospitalization day: day 1 A. Neurolgy: # metabolic encephalopathy: Likely due to retention of CO2, metabolic encephalopathy due to underlying infection likely contributing. B. Cardiology: # New onset of AFib RVR: Noted on EKG and telemetry, started the patient on amiodarone drip, as per RACE II trial we will try to keep the heart rate below 110. Partially heart rate high due to underlying sepsis. # possible pericardial effusion, no tamponade: Pending echo/TTE. # essential hypertension: [place] blood pressure 130/ 80 or below. We will hold antihypertensives for now in the setting of sepsis/ Hemodynamic instability # Possible diastolic heart failure: BNP mildly elevated in 500s, pending TTE C. Respiratory: # past 40 pack-year smoking history, quit less than 15 years back. # Known COPD: Questionable noncompliance, continue levalbuterol and ipratropium therapeutic breathing treatment, influenza and COVID negative # Respiratory deconditioning secondary due to previous COVID pneumonia # chronic hypoxic /hypercapnic respiratory failure : baseline oxygen 4-5 L [id number], We will try to keep the SpO2 between 88-92 % # Left-sided massive pleural effusion: Status post removal of 3800+ mL of pleural fluid by IR. Samples sent, check for serum LDH, protein, light's criteria. # Respiratory acidosis, improving with BiPAP # acute Gram-positive Gram-negative bacterial pneumonia: Check MRSA, check sputum culture, keep the patient on broad-spectrum antibiotics with covering both Gram-negative and Gram-positive. # Likely, re-expansion pulmonary edema: Likely due to removal of moderate amount of pleural fluid . Please start IV methylprednisolone. Continue levalbuterol and D. Gastrointenstinal: # GERD/ GI prophylaxis:ppi prophylaxis to continue # Mild hyperbilirubinemia: Abdominal finding unremarkable. Follow up CMP daily. E. Geniotourinary: no active issues noted so far F. Infectious Disease: # intertrigo, continue nystatin powder # sepsis: Likely due to community-acquired pneumonia, continue IV vancomycin and meropenem for now, pancultures pending follow closely. G. Hematology & Oncology: # mild thrombocytopenia: Close monitoring of H&H, platelets, hold heparin and anticoagulation. Follow up platelets H. Nephrology: no renal issues, check [place] closely. Patient is on Chavez's catheter # Patient is likely intravascularly dry, carbon dioxide 34, due to contraction alkalosis at this point. Check CMP tomorrow. I. Endocrine: # ?previous history of diabetes: HbA1c 5.5 no treatment needed at this point: [place] BG in-hospital 140-180 J. MSK: # peripheral arterial disease: Bilateral lower limb Extremely poor vasculature, vascular surgery consulted. 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 K. Prophylaxis: PPI: Protonix DVT: SCDs L. Lines & Drains (with insertion date): IV peripheral IV, since 05/01/2024 Central : Blood pressure well tolerated, no need of central line Arterial line: Not needed at this point M. Drips: amiodarone drip N. Disposition: Remains in [facility] Code status: Modified code status with DNI, ACLS and chest compression without defibrillation. Discussed with the patient and patient's caregiver, paperwork in file. The plan was discussed with the ICU attending Dr. Bradford. The patient care consists of total 81 minutes of critical care time excluding the procedures. Dictated by Garry Mccall MD with 3M MModal Fluency. Plan discussed with: Patient, Other (Friend/roommate/caregiver) My Orders My Orders Orders - GARRY MCCALL RESIDENT Procedure Category Date Status Time *Consult CONS 05/02/24 Transmitted / 08:04 Guaifenesin Plain PHA 05/02/24 In Process Liquid (Robitussin Humphrey 08:30 Vancomycin Per PHA 05/02/24 In Process Pharmacy 08:30 Meropenem 1gm Ivpb PHA 05/02/24 In Process (Merrem 1gm/ Ns) 14:00 Chest Percussion Tx RT 05/02/24 Logged Initi 08:30 Platelet Monitoring KIRSTEN 05/02/24 In Process 08:35 Vte Protocol Initiated KIRSTEN 05/02/24 In Process 08:35 Heparin Per KIRSTEN 05/02/24 In Process Standardized Proce 08:35 Discontinue All Im KIRSTEN 05/02/24 In Process Injections 08:35 Modified Resuscitive CODE 05/02/24 Transmitted Measures Thoracentesis US 05/02/24 Resulted Chest Portable XY 05/02/24 Resulted 13:16 Acetylcysteine PHA 05/02/24 In Process Inhalation 10% 18:00 Chest Percussion Tx RT 05/02/24 Logged SUB 13:32 Nystatin Powder PHA 05/02/24 In Process (Mycostatin Powder) 22:00 Mrsa Screen MARISOL 05/02/24 Logged 20:54 Sequential KIRSTEN 05/02/24 In Process Compression Device 21:04 Date of Service: May 02, 2024 Billing Provider: LEON BRADFORD MD Common Visit Codes: 89461-[id number] CARE 30-74 MIN, [id number] CARE-EACH +30MIN GARRY MCCALL RESIDENT May 02, 2024 21:13 LEON BRADFORD MD May 05, 2024 17:59
[2024-05-02] MEDS ORDERED: methylPREDNISolone SOD SUCC 40 MG/ML VL IV SCH (22:00)
[2024-05-02] MEDS: IPRATROPIUM BROM 0.5 MG/2.5ML INH SOL NEB SCH (23:50)
[2024-05-02] MEDS: LEVALBUTEROL HCL 1.25 MG/3 ML NEB NEB SCH (23:50)
[2024-05-03] VITALS (23 sets, daily range): BP systolic 43–137; BP diastolic 26–97; PULSE 121–151; RESP 13–23; TEMP 98.3; O2SAT 88–100
[2024-05-03] MEDS: VANCOMYCIN 1.25GM/250ML 250 ML IV SCH (00:52)
[2024-05-03] MEDS: AMIODARONE 360mg/200mL PREMIX 200 ML IV SCH (00:53)
[2024-05-03] MEDS: NYSTATIN TOPICAL POWDER 15GM TOP SCH (00:53)
[2024-05-03] MEDS: KETAMINE 50mg/ML 10ml Vial (500mg/10ml) IM ONE (03:52)
[2024-05-03] MEDS: HYALURONIDASE 150 UNIT/1 ML SUBCUT ONE (04:30)
--- NOTE | 2024-05-03 04:37 | DVHNC2 ---
Central Line Recorder of insertion practice: Filter Assembler Occupation of elastic tape inserter: Attending Physician (Dr Busch), Physician Air Conditioning Mechanic Industrial (Dr Elena Grace) Indication: Hypotension Room prepared for procedure: Yes Filter Assembler performed hand hygien: Yes Maximal sterile barrier precau: Mask/Eye shield, Sterile gown, Cap, Sterlie gloves, Large sterlie drape Skin Preparation: Chlorhexidine gluconate Skin preparation completely dr: Yes Insertion site: Right, Internal jugular Central line catheter type: Zbt-[id number] dialysis Number of lumens: 3 Central line exchanged over a: No Antiseptic ointment applied to: Yes Post Assessment: Chest X-Ray, No Pneumothorax Informed consent obtained: No Risks/benefits/alt described: No Date of Service: May 03, 2024 Billing Provider: ROBY BUSCH MD Common Visit Codes: PROCEDURE ONLY Procedure Codes: [id number] NON-TUNNEL CV CATH ZAMZAM WHEAT RESIDENT May 03, 2024 04:37
[2024-05-03] MEDS: PHENYLEPHRINE IV 250 ML IV SCH (04:59)
[2024-05-03] MEDS: SODIUM CHLORIDE 0.9% 250 ML IV ONE (05:02)
--- NOTE | 2024-05-03 05:14 | DVH ---
EXAM: XR Chest, 1 View CLINICAL INDICATION: CENTRAL LINE INSERTION TECHNIQUE: Frontal view of the chest. COMPARISON: XY CHEST XRAY 1 VIEW on DOS: 05/02/24, XY CHEST PORTABLE on DOS: 05/02/24, CHEST PORTABLE on DOS: 04/22/21, CHEST PORTABLE on DOS: 04/21/21 FINDINGS: LUNGS AND PLEURAL SPACES: Congestive heart failure with bilateral bilateral pleural effusions. HEART: Unremarkable. No cardiomegaly. MEDIASTINUM: Unremarkable. Normal mediastinal contour. BONES/JOINTS: Unremarkable. No acute fracture. TUBES, LINES AND DEVICES: Right IJ venous catheter with distal tip in the SVC. No pneumothorax. OTHER FINDINGS: . . . .. IMPRESSION: 1. Congestive heart failure with bilateral bilateral pleural effusions. 2. Right IJ venous catheter with distal tip in the SVC. No pneumothorax.
[2024-05-03] MEDS: KETAMINE 50mg/ML 10ml Vial 10 ML ONE (05:39)
[2024-05-03 06:34] LABS: Basophils # (auto) 0.1 10 ^3/uL (0-0.2); Eosinophils # (auto) 0 10 ^3/uL (0-0.8); Hemoglobin 15.4 g/dL (13.5-17.5); Monocytes # (auto) 0.9 10 ^3/uL (0-1.3); Monocytes % (auto) 3.8 % (0.0-12.0); Red Cell Distribution Width 18.7 % (11.8-14.3)
[2024-05-03 06:36] LABS: Basophils % (auto) 0.3 % (0.0-2.0); Hematocrit 46.7 % (41.0-53.0); Lymphocytes # (auto) 0.4 10 ^3/uL (0.4-5.4); Lymphocytes % (auto) 1.6 % (10.0-50.0); Mean Corpuscular Hemoglobin 33.6 pg (28.0-32.0); Mean Corpuscular Volume 101.8 fL (80.0-100.0); Neutrophils % (auto) 94.3 % (37.0-80.0); Platelet Count (auto) 120 10^3/uL (140-450); Red Blood Cells 4.59 10^6/uL (4.5-5.90); White Blood Cell 23.4 10^3/uL (4.4-10.8)
[2024-05-03 06:39] LABS: Chloride 99 mmol/L (98-107); Potassium 4.6 mmol/L (3.5-5.1); Sodium 142 mmol/L (136-145)
[2024-05-03 06:40] LABS: Anion Gap 11 (5-15); Calcium 9.6 mg/dL (8.7-10.4)
[2024-05-03 06:45] LABS: BUN/Creatinine Ratio 11.9 (10.0-20.0); Blood Urea Nitrogen 17 mg/dL (9-23)
[2024-05-03 06:46] LABS: Carbon Dioxide 32 mmol/L (20-31); Glucose 139 mg/dL (74-106)
[2024-05-03 07:33] LABS: Base Excess 1.6 mmol/L (-2.0-3.0)
[2024-05-03] MEDS ORDERED: AZITHROMYCIN 500MG/ 250ML 250 ML IV SCH (10:00)
[2024-05-03] MEDS: LACTATED RINGER'S 250 ML IV ONE (10:20)
--- NOTE | 2024-05-03 12:35 | DVHSR ---
APPROVED REPORT EXAM: Two-dimensional and M-mode echocardiogram with Doppler and color Doppler. Blood Pressure: 112/71 mmHg INDICATION ?CHF RISK FACTORS Height: 71, Weight: 249 DIMENSIONS LVDd5.7 (3.8-5.7cm)LA (2D)4.6 (1.9-4.0cm)Aortic Root3.7 (2.0-3.7cm) LVDs5.3 (2.5-4.0cm)LA (MM) (1.9-4.0cm)Aortic Cusp Exc1.9 (1.5-2.0cm) EF (%) 15.0 (55-70%)Rt. Atrium4.6 (1.9-4.0cm)Asc. Aorta cm IVSd0.9 (0.7-1.1cm)RV (D) (1.8-2.4cm) Mitral Valve MitralMitral Stenosis E wave0.92m/sMV Mean GR.2mmHg A wavem/sMV Peak GR.4mmHg E/A ratio0.02D MVAcm2 Aortic Valve Aortic ValveAortic Stenosis V10.88m/Cristofer Mean GR.3mmHg V21.22m/Cristofer Peak GR.6mmHg LVOT Diameter2.0 (1.8-2.4cm)Doppler AVA2.26cm2 Pulmonic Valve V20.74m/s Tricuspid Valve TR Velocity2.36m/s [id number] Other Information Technically limited study due to body habitus and patient position. Conclusion severe dilated chf lvef <20% by visual estimate RV dysfunction biatrial enlargement mild mitral regurg
[2024-05-03] MEDS: LEVALBUTEROL HCL 1.25 MG/3 ML NEB NEB PRN (19:58)
--- NOTE | 2024-05-03 23:12 | DVHPNRES ---
Progress Note Date Seen: May 03, 2024 Resident Creating Document: GARRY MCCALL RESIDENT Has the PT tested + for MRSA If YES, has PT been informed?: No Medical Necessity Reason Pt with a Central, PICC or Fol: Yes The following are medically ne: Chavez Catheter Objective vital signs Vital Sign Date Time Temp Pulse Resp B/P (MAP) Pulse Ox O2 Delivery O2 Flow Rate FiO2 05/03/24 20:27 135 105/66 97 Facial BiPAP Mask 60 05/03/24 19:30 98.8 17 98.8 05/03/24 19:30 12 Total Intake and Output 05/02/24 05/02/24 05/03/24 15:00 23:00 07:00 Intake Total 401.99 ml 52.0 ml 1216.96 ml Output Total 4225 ml 250 ml Balance 401.99 ml -4173.0 ml 966.96 ml medications Current Medications Medications Dose Ordered Sig/Leonor Route Start Time Stop Time Status Last Admin Dose Admin Acetaminophen 650 mg Q6HP PRN PO 05/02/24 01:45 Morphine Sulfate 2 mg Q4HPRN PRN IV 05/02/24 01:45 Nitroglycerin 0.4 mg Q5MINP PRN SL 05/02/24 01:45 Morphine Sulfate 2 mg Q30M PRN IV 05/02/24 01:45 Guaifenesin 200 mg Q4HP PRN GT 05/02/24 08:30 Vancomycin HCl 0 ml @ 0 mls/hr UD IV 05/02/24 08:30 Meropenem 50 ml @ 17 mls/hr Q8HR IV 05/02/24 14:00 05/03/24 22:05 17 MLS/HR Vancomycin HCl 250 ml @ 200 mls/hr Q14H IV 05/03/24 00:00 05/03/24 14:16 200 MLS/HR Diagnostic Test (Pha) 1 strip Q6HR 05/02/24 18:00 05/03/24 18:00 1 STRIP Insulin Human Regular Q6HR SC 05/02/24 18:00 05/03/24 18:00 4 UNITS Dextrose 50 ml UD PRN IV 05/02/24 13:00 Ipratropium Ruby 0.5 mg Q6HWA NEB 05/02/24 18:00 05/03/24 19:58 0.5 MG Acetylcysteine 100 mg Q6HR NEB 05/02/24 18:00 05/03/24 19:59 100 MG Methylprednisolone Sodium Succinate 40 mg Q8H IV 05/02/24 18:30 05/03/24 18:50 40 MG Nystatin 1 applic BID TOP 05/02/24 22:00 05/03/24 22:50 1 APPLIC Phenylephrine HCl 250 ml @ 30 mls/hr Q8H20M IV 05/03/24 01:30 05/03/24 04:59 30 MLS/HR Levalbuterol HCl 1.25 mg Q6HPRN PRN NEB 05/03/24 14:15 05/03/24 19:58 1.25 MG Amiodarone HCl 200 mg Q12HR PO 05/04/24 10:00 Erythromycin 1 applic Q4HR OP 05/04/24 02:00 Furosemide 60 mg DAILY IV 05/04/24 10:00 Heparin Sodium/ Dextrose 250 ml @ 20.34 mls/ hr [id number] IV 05/03/24 23:00 UNV Examination Patient seen and examined at the bedside. Patient is hard of hearing, unable to answer all the questions. Patient is currently on [address] angiography of chest showing large left and moderate to large right pleural effusion and possibility of pneumonia. Ordered arterial dulpex, pending. Constitutional: Yes: Weakness Eyes: No: Pain, Vision change, Conjunctivae inflammation, Eyelid inflammation, Other, Redness ENT: No: Ear pain, Ear discharge, Nose pain, Nose discharge, Nose congestion, Mouth pain, Mouth swelling, Throat pain, Throat swelling, Other Respiratory: Shortness of breath, Wheezing Cardiovascular: Edema Gastrointestinal: No: Nausea, Vomiting, Abdominal Pain, Diarrhea, Constipation, Melena, Hematochezia, Other Genitourinary: No Dysuria, No Frequency, No Incontinence, No Hematuria, No Retention, No Other Musculoskeletal: No: other, neck pain, shoulder pain, arm pain, back pain, hand pain, leg pain, foot pain Skin: Lesions, Bruising Neurological: No: Weakness, Numbness, Incoordination, Change in speech, Confusion, Seizures, Other laboratory and microbiology Laboratory Tests 05/03/24 06:00 Test 05/03/24 06:00 Range/Units Serum Glucose 139 H 74-106 mg/dL Microbiology Date/Time Source Procedure Growth Status 05/02/24 13:10 Pleural Fluid Gram Stain - Final Resulted 05/02/24 13:10 Pleural Fluid Body Fluid Culture - Preliminary Resulted 05/02/24 08:07 Blood Blood Culture - Preliminary Resulted Labs and/or images reviewed: Labs reviewed by me, Image(s) reviewed by me Problem List/Assessment/Plan Problem List/Assessment/Plan ICU Course: Nirav Junior, a 78-year-old male with a history of type 2 diabetes, hypertension, atrial fibrillation, and COPD on home oxygen, presented to the ED with bilateral lower leg weakness and ongoing shortness of breath. He reports his legs giving out when trying to stand, which prompted his visit. He denies fever, cold, nausea, vomiting, diaphoresis, and other acute symptoms. He lives with a claim investigator and denies smoking, alcohol, and drug abuse. He has no known allergies and his home medications were not specified. Since yesterday patient had moderate fluid removal from the left lung with the help of IR team, patient has started having shortness of breath, acute decompensation and hemodynamically instability needing BiPAP support. Hospitalization day: day 2 A. Neurology: # metabolic encephalopathy: Likely due to retention of CO2, metabolic encephalopathy due to underlying infection likely contributing. This morning post BiPAP patient had improved ABG and had more conversations. # delirium: In-hospital patient has hyperactive delirium with agitation, please continue supportive care, frequent reorientation, sleep-wake cycle. If possible please move with the patient to the room as soon as possible. B. Cardiology: # New onset of AFib RVR: Noted on EKG and telemetry, started the patient on amiodarone drip, as per RACE II trial we will try to keep the heart rate below 110. Partially heart rate high due to underlying sepsis. Cardiology consulted looking for input. # possible pericardial effusion, no tamponade: Pending echo/TTE. # essential hypertension: [place] blood pressure 130/ 80 or below. We will hold antihypertensives for now in the setting of sepsis/ Hemodynamic instability # Possible diastolic heart failure: BNP mildly elevated in 500s, pending TTE # heart failure with reduced ejection fraction 20%, cause unknown, cardiology consulted looking for input, not a candidate for GDM T, but started the patient on IV Lasix 60 daily. C. Respiratory: # past 40 pack-year smoking history, quit less than 15 years back. # Known COPD: Questionable noncompliance, continue levalbuterol and ipratropium therapeutic breathing treatment, influenza and COVID negative # Respiratory deconditioning secondary due to previous COVID pneumonia # chronic hypoxic /hypercapnic respiratory failure : baseline oxygen 4-5 L [id number], We will try to keep the SpO2 between 88-92 % # Left-sided massive pleural effusion: Status post removal of 3800+ mL of pleural fluid by IR. Samples sent, check for serum LDH, protein, light's criteria. Follow the result. # Respiratory acidosis, improving with BiPAP, as needed anxiety medications. # acute Gram-positive Gram-negative bacterial pneumonia: Check MRSA, check sputum culture, keep the patient on broad-spectrum antibiotics with covering both Gram-negative and Gram-positive. # Likely, re-expansion pulmonary edema: Likely due to removal of moderate amount of pleural fluid . Please start IV methylprednisolone. Continue levalbuterol and D. Gastrointestinal: # GERD/ GI prophylaxis:ppi prophylaxis to continue # Mild hyperbilirubinemia: Abdominal finding unremarkable. Follow up CMP daily. E. Genitourinary: no active issues noted so far F. Infectious Disease: # intertrigo, continue nystatin powder # sepsis: Likely due to community-acquired pneumonia, continue IV vancomycin and meropenem for now, pancultures pending follow closely. G. Hematology & Oncology: # mild thrombocytopenia: Close monitoring of H&H, platelets, hold heparin and anticoagulation. Follow up platelets H. Nephrology: no renal issues, check [place] closely. Patient is on Chavez's catheter # Patient is likely intravascularly dry, carbon dioxide 34, due to contraction alkalosis at this point. Check CMP tomorrow. I. Endocrine: # ?previous history of diabetes: HbA1c 5.5 no treatment needed at this point: [place] BG in-hospital 140-180 J. MSK: # peripheral arterial disease: Bilateral lower limb Extremely poor vasculature, vascular surgery consulted. 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 K. Prophylaxis: PPI: Protonix DVT: SCDs L. Lines & Drains (with insertion date): IV peripheral IV, since 05/01/2024 Central : Blood pressure well tolerated, no need of central line Arterial line: Not needed at this point M. Drips: amiodarone drip N. Disposition: Remains in [facility] Code status: Modified code status with DNI, ACLS and chest compression without defibrillation. Discussed with the patient and patient's caregiver, paperwork in file. Patient's immediate family is sister with whom the patient has spoke last time more than 2 years back, who will come from [place] to visit him the earliest possible on upcoming Sunday 05/07 The plan was discussed with the ICU attending Dr. Montesinos The patient care consists of total 81 minutes of critical care time excluding the procedures. Dictated by Garry Mccall MD with 3M MModal Fluency. Plan discussed with: Patient, Other My Orders My Orders Orders - GARRY MCCALL Procedure Category Date Status Time * Wound Consult CONS 05/03/24 Transmitted Levalbuterol Hcl PHA 05/03/24 In Process (Xopenex Medneb) 14:15 Complete Blood Count LAB 05/04/24 Verified 04:00 Amiodarone Tablet PHA 05/04/24 In Process (Cordarone Tablet) 10:00 Comprehensive LAB 05/04/24 Verified Metabolic Panel 04:00 Erythromy Opth Oint PHA 05/04/24 In Process 5mg/Gm 1gm 02:00 Furosemide Injection PHA 05/04/24 In Process (Lasix Injection) 10:00 Abg W/ Co-Ox RT 05/04/24 Logged 04:00 Platelet Monitoring KIRSTEN 05/03/24 In Process 23:00 Vte Protocol Initiated KIRSTEN 05/03/24 In Process 23:00 PTPTT LAB 05/03/24 Logged 23:00 Complete Blood Count LAB 05/03/24 Logged 23:00 Heparin Sodium PHA 05/03/24 Logged (Porcine) 23:00 Heparin Drip/D5w PHA 05/03/24 Logged 100units/Ml 23:00 * Cardiology Consult CONS 05/03/24 Verified 23:05 GARRY MCCALL May 03, 2024 23:12
[2024-05-03] MEDS: FUROSEMIDE 20 MG/2 ML VIAL IV ONE (23:20)
[2024-05-03] MEDS: AMIODARONE HCL 200 MG TAB PO ONE (23:25)
[2024-05-03 23:34] LABS: Basophils # (auto) 0 10 ^3/uL (0-0.2); Basophils % (auto) 0.1 % (0.0-2.0); Eosinophils # (auto) 0 10 ^3/uL (0-0.8); Hemoglobin 14.2 g/dL (13.5-17.5); Lymphocytes # (auto) 0.3 10 ^3/uL (0.4-5.4); Lymphocytes % (auto) 1.5 % (10.0-50.0); Mean Corpuscular Hemoglobin 32.4 pg (28.0-32.0); Mean Corpuscular Hgb Conc. 32.4 g/dL (32.0-36.0); Mean Corpuscular Volume 100.2 fL (80.0-100.0); Neutrophils # (auto) 18.3 10 ^3/uL (1.6-8.6); Neutrophils % (auto) 93.4 % (37.0-80.0); Nucleated Red Blood Cells % 0.1 %; Platelet Count (auto) 114 10^3/uL (140-450); Red Blood Cells 4.39 10^6/uL (4.5-5.90); Red Cell Distribution Width 18.7 % (11.8-14.3); White Blood Cell 19.6 10^3/uL (4.4-10.8)
[2024-05-03 23:49] LABS: INR 1.38 (0.9-1.15); Partial Thromboplastin Time 27.8 SEC (24.5-34.5); Prothrombin Time 14.2 sec (9.3-11.8)
[2024-05-04] VITALS (26 sets, daily range): BP systolic 85–136; BP diastolic 53–104; PULSE 107–143; RESP 14–26; TEMP 98.4; O2SAT 90–99
[2024-05-04] MEDS: ERYTHROMY OPTH OINT 5mg/gm 1gm or 3.5gm tube OP SCH (02:00)
[2024-05-04] MEDS: AMIODARONE 360mg/200mL PREMIX 200 ML IV SCH (02:10)
[2024-05-04] MEDS: HEPARIN SODIUM (PORCINE) 5000 UNITS/ML 1ML VIAL IV ONE (02:44)
[2024-05-04] MEDS: HEPARIN DRIP/D5W 100UNITS/ML 250 ML IV SCH ×2 (02:47→11:10)
[2024-05-04 03:26] LABS: Eosinophils # (auto) 0 10 ^3/uL (0-0.8); Lymphocytes # (auto) 0.3 10 ^3/uL (0.4-5.4); Lymphocytes % (auto) 1.3 % (10.0-50.0)
[2024-05-04 03:27] LABS: Basophils # (auto) 0.1 10 ^3/uL (0-0.2); Basophils % (auto) 0.5 % (0.0-2.0); Hematocrit 44.5 % (41.0-53.0); Hemoglobin 14.6 g/dL (13.5-17.5); Mean Corpuscular Hemoglobin 33.3 pg (28.0-32.0); Mean Corpuscular Hgb Conc. 32.7 g/dL (32.0-36.0); Mean Corpuscular Volume 101.9 fL (80.0-100.0); Monocytes # (auto) 1.1 10 ^3/uL (0-1.3); Monocytes % (auto) 4.8 % (0.0-12.0); Neutrophils # (auto) 20.2 10 ^3/uL (1.6-8.6); Neutrophils % (auto) 93.4 % (37.0-80.0); Nucleated Red Blood Cells % 0.1 %; Platelet Count (auto) 128 10^3/uL (140-450); Red Blood Cells 4.37 10^6/uL (4.5-5.90); Red Cell Distribution Width 18.1 % (11.8-14.3); White Blood Cell 21.7 10^3/uL (4.4-10.8)
[2024-05-04 03:40] LABS: Alanine Aminotransferase 23 U/L (7-40); Albumin 3.3 g/dL (3.2-4.8); Alkaline Phosphatase 81 U/L (46-116); Anion Gap 11 (5-15); BUN/Creatinine Ratio 14.4 (10.0-20.0); Calcium 9.6 mg/dL (8.7-10.4); Carbon Dioxide 31 mmol/L (20-31); Chloride 99 mmol/L (98-107); Potassium 4.3 mmol/L (3.5-5.1); Sodium 141 mmol/L (136-145)
[2024-05-04 03:41] LABS: Bilirubin, Total 0.7 mg/dL (0.2-1.0); Total Protein 6.8 g/dL (5.7-8.2)
[2024-05-04 03:49] LABS: Aspartate Aminotransferase 67 U/L (13-40); Blood Urea Nitrogen 34 mg/dL (9-23); Glucose 191 mg/dL (74-106)
[2024-05-04] MEDS ORDERED: AMIODARONE HCL 200 MG TAB PO SCH (10:00)
[2024-05-04 10:04] LABS: INR 1.56 (0.9-1.15); Prothrombin Time 15.8 sec (9.3-11.8)
[2024-05-04 10:08] LABS: Partial Thromboplastin Time > 139.0 SEC (24.5-34.5)
[2024-05-04] MEDS: FUROSEMIDE 40 MG/4 ML VIAL IV SCH (10:52)
--- NOTE | 2024-05-04 13:33 | DVHINCON2 ---
Date of service: May 04, 2024 History of Present Illness KATH VILLEGAS is a 78 y o male with PMH of type 2 DM, HTN, AFib, COPD on home oxygen presented to the ED with the chief complaints of bilateral lower leg weakness and ongoing shortness of breath. Patient is poor historian, unable to obtain a complete history but patient is mentioning when he is trying to stand up, he feels his legs are giving up and weakness which is more concerning for him to visit ED. patient has lives with a crown pouncer. On my assessment patient denies fever, cold, nausea, vomiting, diaphoresis, and other acute associated symptoms. Knees PMH: Type 2 DM, HTN, AFib, COPD on home oxygen PSH: Denies Family history: Reviewed, noncontributory Social history: Lives with a crown pouncer. Denies smoking, alcohol and other drug abuse Allergies: No known allergies Home medication Past Medical History reviewed Allergies: Coded Allergies: NO KNOWN ALLERGIES (Unverified , 07/30/17) Home Meds Reported Medications Metformin Hydrochloride (Metformin Hcl) 500 Mg Tab, 500 MG PO BID for 30 Days, MG 04/22/21 Current Medications Current Medications Medications (Trade) Dose Ordered Sig/Leonor Route PRN Reason Start Time Stop Time Status Last Admin Levalbuterol HCl (Xopenex Medneb) 1.25 mg Q6HPRN PRN NEB SHORTNESS OF BREATH 05/03/24 14:15 05/04/24 06:41 Amiodarone HCl (Cordarone Tablet) 200 mg Q12HR PO 05/04/24 10:00 05/04/24 02:04 DC Erythromycin 1 applic Q4HR OP 05/04/24 02:00 05/04/24 10:53 Furosemide (Lasix Injection) 60 mg DAILY IV 05/04/24 10:00 05/04/24 10:52 Heparin Sodium/ Dextrose 250 ml @ 20 mls/hr [id number] IV 05/04/24 02:30 05/04/24 10:25 DC 05/04/24 02:47 Meropenem 50 ml @ 17 mls/hr Q12H IV 05/04/24 19:00 Heparin Sodium/ Dextrose 250 ml @ 17 mls/hr [id number] IV 05/04/24 11:00 05/04/24 11:10 Review of Systems not obtaiend, pt on bipap Vital Signs Vital Signs Date Time Temp Pulse Resp B/P (MAP) Pulse Ox O2 Delivery O2 Flow Rate FiO2 05/04/24 12:17 134 88/69 97 Nasal BiPAP Mask 50 05/04/24 09:00 19 05/04/24 06:30 98.6 98.6 05/03/24 19:30 12 Physical Exam pt on bipap , complaining, confused s1 s2 irregulra tachy diffuse rhonchi , tachypneic abd distended obese, +2 leg edema, severe chronic venous change,s legs are purple Labs/Diagnostic Data Labs Test 05/04/24 09:00 05/04/24 06:18 05/04/24 02:56 05/03/24 07:27 Range/Units Prothrombin Time 15.8 H 9.3-11.8 sec Prothrombin Time INR 1.56 H 0.9-1.15 Activated Partial Thromboplast Time > 139.0 *H 24.5-34.5 SEC POC Glucose 217 H 70-106 mg/dl White Blood Count 21.7 H 4.4-10.8 10^3/uL Red Blood Count 4.37 L 4.5-5.90 10^6/uL Hemoglobin 14.6 13.5-17.5 g/dL Hematocrit 44.5 41.0-53.0 % Mean Corpuscular Volume 101.9 H 80.0-100.0 fL Mean Corpuscular Hemoglobin 33.3 H 28.0-32.0 pg Mean Corpuscular Hemoglobin Concent 32.7 32.0-36.0 g/dL Red Cell Distribution Width 18.1 H 11.8-14.3 % Platelet Count 128 L 140-450 10^3/uL Mean Platelet Volume 8.6 6.9-10.8 fL Neutrophils (%) (Auto) 93.4 H 37.0-80.0 % Lymphocytes (%) (Auto) 1.3 L 10.0-50.0 % Monocytes (%) (Auto) 4.8 0.0-12.0 % Eosinophils (%) (Auto) 0.0 0.0-7.0 % Basophils (%) (Auto) 0.5 0.0-2.0 % Neutrophils # (Auto) 20.2 H 1.6-8.6 10 ^3/uL Lymphocytes # (Auto) 0.3 L 0.4-5.4 10 ^3/uL Monocytes # (Auto) 1.1 0-1.3 10 ^3/uL Eosinophils # (Auto) 0 0-0.8 10 ^3/uL Basophils # (Auto) 0.1 0-0.2 10 ^3/uL Nucleated Red Blood Cells 0.1 % Sodium Level 141 136-145 mmol/L Potassium Level 4.3 3.5-5.1 mmol/L Chloride Level 99 98-107 mmol/L Carbon Dioxide Level 31 20-31 mmol/L Anion Gap 11 5-15 Blood Urea Nitrogen 34 #H 9-23 mg/dL Creatinine 2.36 H 0.700-1.30 mg/dL Glomerular Filtration Rate Calc 27 >90 mL/min BUN/Creatinine Ratio 14.4 10.0-20.0 Serum Glucose 191 H 74-106 mg/dL Calcium Level 9.6 8.7-10.4 mg/dL Total Bilirubin 0.7 0.2-1.0 mg/dL Aspartate Amino Transferase (AST) 67 H 13-40 U/L Alanine Aminotransferase (ALT) 23 7-40 U/L Alkaline Phosphatase 81 46-116 U/L Total Protein 6.8 5.7-8.2 g/dL Albumin 3.3 3.2-4.8 g/dL Vancomycin Level Trough 36.2 *H 5-10 ug/mL Blood Gas Specimen Type Arterial Blood Gas Sample Site Right radial Blood Gas Patient Temperature 37.0 Arterial Blood Date Drawn [id number] Arterial Blood pH 7.331 L 7.350-7.450 Arterial Blood Partial Pressure CO2 56.1 H 35.0-48.0 mmHg Arterial Blood Partial Pressure O2 98.2 83.0-108.0 mmHg Arterial Blood HCO3 29.0 H 21.0-28.0 mmol/L Arterial Blood Oxygen Saturation 97.5 94.0-98.0 % Arterial Blood Base Excess 1.6 -2.0-3.0 mmol/L Arterial Blood Oxyhemoglobin 96.0 94.0-98.0 % Arterial Blood Carboxyhemoglobin 0.8 0.5-1.5 % Arterial Blood Methemoglobin 0.7 0.0-1.5 % Prosper Test Yes Blood Gas Total Hemoglobin 16.40 13.5-17.5 g/dL Blood Gas Set Respiration Rate 12.0 Blood Gas Modality Mask - bipap FiO2 % 90.0 Blood Gas EPAP 5 Blood Gas IPAP 12 Test 05/02/24 18:47 05/02/24 13:10 05/02/24 08:07 05/02/24 06:15 Range/Units Specimen Drawn By Blood Gas Critical Value Read Back Yes Blood Gas Notified Whom Alexa angel rn Blood Gas Notified Time [id number] Blood Gas Notified By Body Fluid Source Pleural fluid Body Fluid pH 8.0 Body Fluid WBC (Manual) 107 0-200 CUMM Body Fluid RBC (Manual) 175 0-2000 CUMM Body Fluid Mononuclear Cells 88 % Body Fluid Polymorphonuclear Cells 12 0-25 % Body Fluid Glucose 148 . mg/dL Body Fluid Total Protein 3.0 . g/dL Body Fluid Lactate Dehydrogenase 72 . IU/L Lactic Acid Level 1.8 0.4-2.0 mmol/L Lactate Dehydrogenase 256 H 120-246 U/L Test 05/02/24 02:16 05/02/24 02:11 05/01/24 21:45 05/01/24 19:53 Range/Units Influenza Type A Antigen Negative Negative Influenza Type B Antigen Negative Negative SARS-CoV-2 Antigen (Rapid) Negative NEGATIVE D-Dimer, Quantitative 1.51 H 0.0-0.49 mg/L FEU Hemoglobin A1c 5.5 <5.7 % A1C Thyroid Stimulating Hormone (TSH) 2.35 0.55-4.78 uIU/mL Urine Color Yellow Yellow Urine Clarity Clear Clear Urine pH 5.5 5.0-9.0 Urine Specific [place] 1.022 1.001-1.035 Urine Protein 1+ H Negative Urine Ketones Trace Negative Urine Blood Trace H Negative /uL Urine Nitrite Negative Negative Urine Bilirubin Negative Negative Urine Urobilinogen 2 H Negative mg/dL Urine Leukocyte Esterase Negative Negative /uL Urine RBC 16 0 - 3 /hpf Urine Microscopic WBC 2 0-3 /HPF Urine Squamous Epithelial Cells Few <5 /hpf Urine Bacteria None seen None Seen /hpf Urine Glucose Trace Normal mg/dL Urine Opiates Screen Neg NEGATIVE Urine Fentanyl Screen Neg NEGATIVE Urine Barbiturates Screen Neg NEGATIVE Urine Phencyclidine Screen Neg NEGATIVE Urine Amphetamines Screen Neg NEGATIVE Urine Benzodiazepines Screen Neg NEGATIVE Urine Cocaine Screen Neg NEGATIVE Urine Cannabinoids Screen Neg NEGATIVE Troponin I High Sensitivity 17 </=54 ng/L Test 05/01/24 17:09 Range/Units B-Type Natriuretic Peptide 453.86 0-100 pg/mL Microbiology Date/Time Source Procedure Growth Status 05/02/24 13:10 Pleural Fluid Gram Stain - Final Resulted 05/02/24 13:10 Pleural Fluid Body Fluid Culture - Preliminary Resulted 05/02/24 08:07 Blood Blood Culture - Preliminary Resulted Assessment afib rvr copd exacerbation hypoxia obesity chronic venous disesae ckd r/o chf Plan/Recommendation amio gtt start iv digoxin HR wont control until pt is more comfortable on bipap for now check echo when feasible iv lasix daily consider anticoag for cva prevention Plan discussed with: Patient ALYSSA PIERCE MD May 04, 2024 13:33
[2024-05-04] MEDS: DIGOXIN (250MCG/ML) 2 ML AMPULE IV ONE (14:44)
[2024-05-04] MEDS: LEVALBUTEROL HCL 1.25 MG/3 ML NEB ONE (18:20)
[2024-05-04] MEDS: ACETYLCYSTEINE 10 %(100MG/ML) SOL 4ML ONE (18:20)
[2024-05-04] MEDS: IPRATROPIUM BROM 0.5 MG/2.5ML INH SOL ONE (18:20)
[2024-05-04 19:18] LABS: INR 1.41 (0.9-1.15); Prothrombin Time 14.4 sec (9.3-11.8)
--- NOTE | 2024-05-04 19:22 | DVHPN2 ---
Reviewed: Care Plan, H&P, Labs, Medications, Previous Orders, Radiology, Other Changes from previous H/P or p: No Changes General: Per HPI Eyes: No Pain, No Vision change, No Conjunctivae inflammation, No Eyelid inflammation, No Other, No Redness ENT: No Ear pain, No Ear discharge, No Nose pain, No Nose discharge, No Nose congestion, No Mouth pain, No Mouth swelling, No Throat pain, No Throat swelling, No Other Cardiovascular: Edema Respiratory: Shortness of breath, Wheezing Gastrointestinal: No Nausea, No Vomiting, No Abdominal Pain, No Diarrhea, No Constipation, No Melena, No Hematochezia, No Other Genitourinary: No Dysuria, No Frequency, No Incontinence, No Hematuria, No Retention, No Other Musculoskeletal: No other, No neck pain, No shoulder pain, No arm pain, No back pain, No hand pain, No leg pain, No foot pain Skin: Lesions, Bruising Objective Vitals Vital Signs Date Time Temp Pulse Resp B/P (MAP) Pulse Ox O2 Delivery O2 Flow Rate FiO2 05/04/24 18:21 107 124/76 93 Nasal BiPAP Mask 50 05/04/24 18:20 17 05/04/24 06:30 98.6 98.6 05/03/24 19:30 12 Intake/Output Intake and Output 05/04/24 07:00 Intake Total 783.20 ml Balance 783.20 ml IV Total 783.20 ml Medications Current Medications Medications Dose Ordered Sig/Leonor Route Start Time Stop Time Status Last Admin Dose Admin Acetaminophen 650 mg Q6HP PRN PO 05/02/24 01:45 Morphine Sulfate 2 mg Q4HPRN PRN IV 05/02/24 01:45 Nitroglycerin 0.4 mg Q5MINP PRN SL 05/02/24 01:45 Morphine Sulfate 2 mg Q30M PRN IV 05/02/24 01:45 Guaifenesin 200 mg Q4HP PRN GT 05/02/24 08:30 Vancomycin HCl 0 ml @ 0 mls/hr UD IV 05/02/24 08:30 Diagnostic Test (Pha) 1 strip Q6HR 05/02/24 18:00 05/04/24 18:33 1 STRIP Insulin Human Regular Q6HR SC 05/02/24 18:00 05/04/24 12:35 3 UNITS Dextrose 50 ml UD PRN IV 05/02/24 13:00 Ipratropium [place] 0.5 mg Q6HWA NEB 05/02/24 18:00 05/04/24 18:18 0.5 MG Acetylcysteine 100 mg Q6HR NEB 05/02/24 18:00 05/04/24 18:19 100 MG Methylprednisolone Sodium Succinate 40 mg Q8H IV 05/02/24 18:30 05/04/24 10:51 40 MG Nystatin 1 applic BID TOP 05/02/24 22:00 05/04/24 10:52 1 APPLIC Phenylephrine HCl 250 ml @ 30 mls/hr Q8H20M IV 05/03/24 01:30 05/04/24 07:18 48.75 MLS/HR Levalbuterol HCl 1.25 mg Q6HPRN PRN NEB 05/03/24 14:15 05/04/24 18:20 1.25 MG Erythromycin 1 applic Q4HR OP 05/04/24 02:00 05/04/24 18:00 1 APPLIC Furosemide 60 mg DAILY IV 05/04/24 10:00 05/04/24 10:52 60 MG Meropenem 50 ml @ 17 mls/hr Q12H IV 05/04/24 19:00 Heparin Sodium/ Dextrose 250 ml @ 17 mls/hr [id number] IV 05/04/24 11:00 05/04/24 11:10 17 MLS/HR Enoxaparin Sodium 100 mg Q12HR SC 05/04/24 22:00 UNV Laboratory Results Laboratory Tests 05/04/24 02:56 Chemistry Test 05/04/24 02:56 Albumin 3.3 g/dL (3.2-4.8) Calcium Level 9.6 mg/dL (8.7-10.4) Total Protein 6.8 g/dL (5.7-8.2) Coagulation Test 05/03/24 23:13 05/04/24 09:00 05/04/24 18:34 Prothrombin Time 14.2 sec (9.3-11.8) H 15.8 sec (9.3-11.8) H Pending Prothrombin Time INR 1.38 (0.9-1.15) H 1.56 (0.9-1.15) H Pending Activated Partial Thromboplast Time 27.8 SEC (24.5-34.5) > 139.0 SEC (24.5-34.5) *H Pending LFT Test 05/04/24 02:56 Alanine Aminotransferase (ALT) 23 U/L (7-40) Alkaline Phosphatase 81 U/L (46-116) Aspartate Amino Transferase (AST) 67 U/L (13-40) H Total Bilirubin 0.7 mg/dL (0.2-1.0) Urinalysis Test 05/01/24 21:45 Urine Color Yellow (Yellow) Urine Clarity Clear (Clear) Urine pH 5.5 (5.0-9.0) Urine Specific [place] 1.022 (1.001-1.035) Urine Protein 1+ (Negative) H Urine Ketones Trace (Negative) Urine Blood Trace /uL (Negative) H Urine Nitrite Negative (Negative) Urine Bilirubin Negative (Negative) Urine Urobilinogen 2 mg/dL (Negative) H Urine Leukocyte Esterase Negative /uL (Negative) Urine RBC 16 /hpf (0 - 3) Urine Microscopic WBC 2 /HPF (0-3) Urine Squamous Epithelial Cells Few /hpf (<5) Urine Bacteria None seen /hpf (None Seen) Urine Glucose Trace mg/dL (Normal) Microbiology Microbiology Date/Time Source Procedure Growth Status 05/02/24 13:10 Pleural Fluid Gram Stain - Final Resulted 05/02/24 13:10 Pleural Fluid Body Fluid Culture - Preliminary Resulted 05/02/24 08:07 Blood Blood Culture - Preliminary Resulted Assessment/Plan Assessment/Plan # metabolic encephalopathy: Likely due to retention of CO2, metabolic encephalopathy due to underlying infection likely contributing. This morning post BiPAP patient had improved ABG and had more conversations. # delirium: In-hospital patient has hyperactive delirium with agitation, please continue supportive care, frequent reorientation, sleep-wake cycle. If possible please move with the patient to the room as soon as possible. # New onset of AFib RVR: Noted on EKG and telemetry, started the patient on amiodarone drip, as per RACE II trial we will try to keep the heart rate below 110. Partially heart rate high due to underlying sepsis. Cardiology consulted looking for input. # possible pericardial effusion, no tamponade: Pending echo/TTE. # essential hypertension: [place] blood pressure 130/ 80 or below. We will hold antihypertensives for now in the setting of sepsis/ Hemodynamic instability # Possible diastolic heart failure: BNP mildly elevated in 500s, pending TTE # heart failure with reduced ejection fraction 20%, cause unknown, cardiology consulted looking for input, not a candidate for GDM T, but started the patient on IV Lasix 60 daily. # past 40 pack-year smoking history, quit less than 15 years back. # Known COPD: Questionable noncompliance, continue levalbuterol and ipratropium therapeutic breathing treatment, influenza and COVID negative # Respiratory deconditioning secondary due to previous COVID pneumonia # chronic hypoxic /hypercapnic respiratory failure : baseline oxygen 4-5 L [id number], We will try to keep the SpO2 between 88-92 % # Left-sided massive pleural effusion: Status post removal of 3800+ mL of pleural fluid by IR. Samples sent, check for serum LDH, protein, light's criteria. Follow the result. # Respiratory acidosis, improving with BiPAP, as needed anxiety medications. # acute Gram-positive Gram-negative bacterial pneumonia: Check MRSA, check sputum culture, keep the patient on broad-spectrum antibiotics with covering both Gram-negative and Gram-positive. # Likely, re-expansion pulmonary edema: Likely due to removal of moderate amount of pleural fluid . Please start IV methylprednisolone. Continue levalbuterol and # GERD/ GI prophylaxis:ppi prophylaxis to continue # Mild hyperbilirubinemia: Abdominal finding unremarkable. Follow up CMP daily. # intertrigo, continue nystatin powder # sepsis: Likely due to community-acquired pneumonia, continue IV vancomycin and meropenem for now, pancultures pending follow closely. # mild thrombocytopenia: Close monitoring of H&H, platelets, hold heparin and anticoagulation. Follow up platelets # Patient is likely intravascularly dry, carbon dioxide 34, due to contraction alkalosis at this point. Check CMP tomorrow. # ?previous history of diabetes: HbA1c 5.5 no treatment needed at this point: [place] BG in-hospital 140-180 # peripheral arterial disease: Bilateral lower limb Extremely poor vasculature, vascular surgery consulted. 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 Code status: Modified code status with DNI, ACLS and chest compression without defibrillation. Discussed with the patient and patient's caregiver, paperwork in file. Patient's immediate family is sister with whom the patient has spoke last time more than 2 years back, who will come from [place] to visit him the earliest possible on upcoming Sunday 05/0705/04/2024: continue on bipap, drip and Levophed awaiting for ICU bed continue with heparin drip and amiodarone Plan discussed with: Patient Date of Service: May 04, 2024 Billing Provider: LAKESHA HARE DO Common Visit Codes: [id number] INP/OBS CARE(HIGH) LAKESHA HARE DO May 04, 2024 19:22
[2024-05-04 19:26] LABS: Partial Thromboplastin Time 108.8 SEC (24.5-34.5)
[2024-05-04] MEDS: MEROPENEM 1GM IVPB 50 ML IV SCH (22:42)
[2024-05-05] VITALS (58 sets, daily range): BP systolic 87–136; BP diastolic 30–87; PULSE 94–135; RESP 10–26; TEMP 98–98.5; O2SAT 90–100
[2024-05-05] MEDS: LEVALBUTEROL HCL 1.25 MG/3 ML NEB ONE (00:06)
[2024-05-05] MEDS: IPRATROPIUM BROM 0.5 MG/2.5ML INH SOL ONE (00:13)
[2024-05-05 05:00] LABS: Basophils # (auto) 0.1 10 ^3/uL (0-0.2); Basophils % (auto) 0.3 % (0.0-2.0); Eosinophils # (auto) 0 10 ^3/uL (0-0.8); Hematocrit 41.2 % (41.0-53.0); Hemoglobin 13.6 g/dL (13.5-17.5); Lymphocytes # (auto) 0.2 10 ^3/uL (0.4-5.4); Lymphocytes % (auto) 0.9 % (10.0-50.0); Mean Corpuscular Hemoglobin 33.3 pg (28.0-32.0); Mean Corpuscular Hgb Conc. 32.9 g/dL (32.0-36.0); Mean Corpuscular Volume 101.2 fL (80.0-100.0); Monocytes # (auto) 1.1 10 ^3/uL (0-1.3); Monocytes % (auto) 5.3 % (0.0-12.0); Neutrophils # (auto) 19.4 10 ^3/uL (1.6-8.6); Neutrophils % (auto) 93.5 % (37.0-80.0); Nucleated Red Blood Cells % 0.1 %; Platelet Count (auto) 103 10^3/uL (140-450); Red Blood Cells 4.07 10^6/uL (4.5-5.90); Red Cell Distribution Width 18.4 % (11.8-14.3); White Blood Cell 20.8 10^3/uL (4.4-10.8)
[2024-05-05 05:27] LABS: INR 1.36 (0.9-1.15)
[2024-05-05 05:44] LABS: Partial Thromboplastin Time 97.6 SEC (24.5-34.5)
[2024-05-05] MEDS: HEPARIN DRIP/D5W 100UNITS/ML 250 ML IV SCH ×2 (07:52→12:15)
[2024-05-05] MEDS: LORazepam 2MG/ML-1ML VIAL IV PRN (09:11)
[2024-05-05 13:44] LABS: Base Excess 1.2 mmol/L (-2.0-3.0)
[2024-05-05] MEDS: ENOXAPARIN SOD 100 MG/1 ML SYRINGE SC SCH (14:06)
[2024-05-05 14:07] LABS: INR 1.34 (0.9-1.15); Partial Thromboplastin Time 64.3 SEC (24.5-34.5); Prothrombin Time 13.8 sec (9.3-11.8)
--- NOTE | 2024-05-05 14:28 | DVHINCON2 ---
Date of service: May 04, [address] montilla Reason for Consultation copd History of Present Illness Pt is a 78 yo gentleman, h/o copd, smoker, CHF, htn, presented with altered mental status. In ER abg reveal hypercapnea Ph 7.30/c02=60, P02=66. Pt started on bipap 02/23 CXR: pulm edema. respiratory viral panel negative Allergies: Coded Allergies: NO KNOWN ALLERGIES (Unverified , 07/30/17) Home Meds Reported Medications Metformin Hydrochloride (Metformin Hcl) 500 Mg Tab, 500 MG PO BID for 30 Days, MG 04/22/21 Current Medications Current Medications Medications (Trade) Dose Ordered Sig/Leonor Route PRN Reason Start Time Stop Time Status Last Admin Meropenem 50 ml @ 17 mls/hr Q12H IV 05/04/24 19:00 05/05/24 05:34 Enoxaparin Sodium (Lovenox) 100 mg Q12HR SC 05/04/24 22:00 Hold Heparin Sodium/ Dextrose 250 ml @ 14 mls/hr [id number] IV 05/04/24 20:40 05/05/24 12:13 DC Lorazepam (Ativan Inj) 1 mg Q8HP PRN IV ANXIETY 05/05/24 06:45 05/05/24 09:11 Enteral Nutritional Formula ([place] Powder PACKET) 27.5 gm BID PO 05/05/24 22:00 Heparin Sodium/ Dextrose 250 ml @ 11 mls/hr [id number] IV 05/05/24 12:15 Review of Systems Constitutional: no fever, chill, weight loss HEENT: no eye pain, no hearing loss, no oral lesion, no scleral icterus Heart: no chest pain, no chest pressure Lung: no cough, no dyspnea with exertion : no pain with urination, normal appearing urine Musculoskeletal: no joint pain, no muscle pain Neurological: no seizure, no loss of sensation, no weakness in extremities Pysch: no depression, no anxiety Derm: no rash, no jaundice Vital Signs Vital Signs Date Time Temp Pulse Resp B/P (MAP) Pulse Ox O2 Delivery O2 Flow Rate FiO2 05/05/24 13:57 114 97/67 92 Nasal BiPAP Mask 50 05/05/24 10:00 12 05/05/24 08:00 97.3 97.3 05/03/24 19:30 12 Labs/Diagnostic Data Labs Test 05/05/24 13:38 05/05/24 13:31 05/05/24 12:12 05/05/24 04:25 Range/Units Blood Gas Specimen Type Arterial Blood Gas Sample Site Right radial Blood Gas Patient Temperature 37.0 Arterial Blood Date Drawn [id number] Arterial Blood pH 7.301 L 7.350-7.450 Arterial Blood Partial Pressure CO2 60.3 *H 35.0-48.0 mmHg Arterial Blood Partial Pressure O2 66.1 L 83.0-108.0 mmHg Arterial Blood HCO3 29.1 H 21.0-28.0 mmol/L Arterial Blood Oxygen Saturation 90.3 L 94.0-98.0 % Arterial Blood Base Excess 1.2 -2.0-3.0 mmol/L Arterial Blood Oxyhemoglobin 88.9 L 94.0-98.0 % Arterial Blood Carboxyhemoglobin 0.8 0.5-1.5 % Arterial Blood Methemoglobin 0.7 0.0-1.5 % Prosper Test Modified Blood Gas Total Hemoglobin 14.20 13.5-17.5 g/dL Blood Gas Set Respiration Rate 12.0 Blood Gas Modality Mask - bipap Blood Gas Spontaneous Rate 17 FiO2 % 50.0 Blood Gas EPAP 5 Blood Gas IPAP 12 Blood Gas Critical Value Read Back yes Blood Gas Notified Whom Blood Gas Notified Time [id number] Blood Gas Notified By mariajose churchill Prothrombin Time 13.8 H 9.3-11.8 sec Prothrombin Time INR 1.34 H 0.9-1.15 Activated Partial Thromboplast Time 64.3 H 24.5-34.5 SEC POC Glucose 125 H 70-106 mg/dl White Blood Count 20.8 H 4.4-10.8 10^3/uL Red Blood Count 4.07 L 4.5-5.90 10^6/uL Hemoglobin 13.6 13.5-17.5 g/dL Hematocrit 41.2 41.0-53.0 % Mean Corpuscular Volume 101.2 H 80.0-100.0 fL Mean Corpuscular Hemoglobin 33.3 H 28.0-32.0 pg Mean Corpuscular Hemoglobin Concent 32.9 32.0-36.0 g/dL Red Cell Distribution Width 18.4 H 11.8-14.3 % Platelet Count 103 L 140-450 10^3/uL Mean Platelet Volume 8.9 6.9-10.8 fL Neutrophils (%) (Auto) 93.5 H 37.0-80.0 % Lymphocytes (%) (Auto) 0.9 L 10.0-50.0 % Monocytes (%) (Auto) 5.3 0.0-12.0 % Eosinophils (%) (Auto) 0.0 0.0-7.0 % Basophils (%) (Auto) 0.3 0.0-2.0 % Neutrophils # (Auto) 19.4 H 1.6-8.6 10 ^3/uL Lymphocytes # (Auto) 0.2 L 0.4-5.4 10 ^3/uL Monocytes # (Auto) 1.1 0-1.3 10 ^3/uL Eosinophils # (Auto) 0 0-0.8 10 ^3/uL Basophils # (Auto) 0.1 0-0.2 10 ^3/uL Nucleated Red Blood Cells 0.1 % Creatinine 3.47 H 0.700-1.30 mg/dL Glomerular Filtration Rate Calc 17 >90 mL/min Random Vancomycin Level 27.6 H 5-10 ug/mL Test 05/04/24 02:56 05/02/24 18:47 05/02/24 13:10 05/02/24 08:07 Range/Units Sodium Level 141 136-145 mmol/L Potassium Level 4.3 3.5-5.1 mmol/L Chloride Level 99 98-107 mmol/L Carbon Dioxide Level 31 20-31 mmol/L Anion Gap 11 5-15 Blood Urea Nitrogen 34 #H 9-23 mg/dL BUN/Creatinine Ratio 14.4 10.0-20.0 Serum Glucose 191 H 74-106 mg/dL Calcium Level 9.6 8.7-10.4 mg/dL Total Bilirubin 0.7 0.2-1.0 mg/dL Aspartate Amino Transferase (AST) 67 H 13-40 U/L Alanine Aminotransferase (ALT) 23 7-40 U/L Alkaline Phosphatase 81 46-116 U/L Total Protein 6.8 5.7-8.2 g/dL Albumin 3.3 3.2-4.8 g/dL Vancomycin Level Trough 36.2 *H 5-10 ug/mL Specimen Drawn By Body Fluid Source Pleural fluid Body Fluid pH 8.0 Body Fluid WBC (Manual) 107 0-200 CUMM Body Fluid RBC (Manual) 175 0-2000 CUMM Body Fluid Mononuclear Cells 88 % Body Fluid Polymorphonuclear Cells 12 0-25 % Body Fluid Glucose 148 . mg/dL Body Fluid Total Protein 3.0 . g/dL Body Fluid Lactate Dehydrogenase 72 . IU/L Lactic Acid Level 1.8 0.4-2.0 mmol/L Test 05/02/24 06:15 05/02/24 02:16 05/02/24 02:11 05/01/24 21:45 Range/Units Lactate Dehydrogenase 256 H 120-246 U/L Influenza Type A Antigen Negative Negative Influenza Type B Antigen Negative Negative SARS-CoV-2 Antigen (Rapid) Negative NEGATIVE D-Dimer, Quantitative 1.51 H 0.0-0.49 mg/L FEU Hemoglobin A1c 5.5 <5.7 % A1C Thyroid Stimulating Hormone (TSH) 2.35 0.55-4.78 uIU/mL Urine Color Yellow Yellow Urine Clarity Clear Clear Urine pH 5.5 5.0-9.0 Urine Specific [place] 1.022 1.001-1.035 Urine Protein 1+ H Negative Urine Ketones Trace Negative Urine Blood Trace H Negative /uL Urine Nitrite Negative Negative Urine Bilirubin Negative Negative Urine Urobilinogen 2 H Negative mg/dL Urine Leukocyte Esterase Negative Negative /uL Urine RBC 16 0 - 3 /hpf Urine Microscopic WBC 2 0-3 /HPF Urine Squamous Epithelial Cells Few <5 /hpf Urine Bacteria None seen None Seen /hpf Urine Glucose Trace Normal mg/dL Urine Opiates Screen Neg NEGATIVE Urine Fentanyl Screen Neg NEGATIVE Urine Barbiturates Screen Neg NEGATIVE Urine Phencyclidine Screen Neg NEGATIVE Urine Amphetamines Screen Neg NEGATIVE Urine Benzodiazepines Screen Neg NEGATIVE Urine Cocaine Screen Neg NEGATIVE Urine Cannabinoids Screen Neg NEGATIVE Test 05/01/24 19:53 05/01/24 17:09 Range/Units Troponin I High Sensitivity 17 </=54 ng/L B-Type Natriuretic Peptide 453.86 0-100 pg/mL Microbiology Date/Time Source Procedure Growth Status 05/05/24 05:10 Nose MRSA Screen - Final Complete 05/02/24 13:10 Pleural Fluid Gram Stain - Final Resulted 05/02/24 13:10 Pleural Fluid Body Fluid Culture - Preliminary Resulted 05/02/24 08:07 Blood Blood Culture - Final Staphylococcus lugdunensis Complete Assessment pulm edema pl effusion s/p thora acute ex of copd\ pneumonia CKD vs DEREJE pt seen and examined in the ER restrained labs and imaging reviewed pulmonary edema management plan bipap titrate rpt abg antibiotics for pneumonia diurese monitor renal function/utine outpuit may need HD and fluid removal pt at risk for intubation full code crit care time 35 min Plan discussed with: Other (RN) LEVON LEAVITT MD May 05, 2024 14:28
--- NOTE | 2024-05-05 14:35 | DVHPN2 ---
Progress Note - Dictate Date Seen: May 05, 2024 Has the PT tested + for MRSA If YES, has PT been informed?: No Medical Necessity Reason Pt with a Central, PICC or Fol: Yes The following are medically ne: [place] Catheter vital signs Vital Sign Date Time Temp Pulse Resp B/P (MAP) Pulse Ox O2 Delivery O2 Flow Rate FiO2 05/05/24 13:57 114 97/67 92 Nasal BiPAP Mask 50 05/05/24 10:00 12 05/05/24 08:00 97.3 97.3 05/03/24 19:30 12 Total Intake and Output 05/04/24 05/04/24 05/05/24 15:00 23:00 07:00 Intake Total 156.64 ml 265.62 ml Output Total 275 ml Balance 156.64 ml -9.38 ml medications Current Medications Medications Dose Ordered Sig/Leonor Route Start Time Stop Time Status Last Admin Dose Admin Acetaminophen 650 mg Q6HP PRN PO 05/02/24 01:45 Morphine Sulfate 2 mg Q4HPRN PRN IV 05/02/24 01:45 Nitroglycerin 0.4 mg Q5MINP PRN SL 05/02/24 01:45 Morphine Sulfate 2 mg Q30M PRN IV 05/02/24 01:45 Guaifenesin 200 mg Q4HP PRN GT 05/02/24 08:30 Vancomycin HCl 0 ml @ 0 mls/hr UD IV 05/02/24 08:30 Diagnostic Test (Pha) 1 strip Q6HR 05/02/24 18:00 05/05/24 12:13 Insulin Human Regular Q6HR SC 05/02/24 18:00 05/05/24 05:47 Dextrose 50 ml UD PRN IV 05/02/24 13:00 Ipratropium [place] 0.5 mg Q6HWA NEB 05/02/24 18:00 05/05/24 11:51 Acetylcysteine 100 mg Q6HR NEB 05/02/24 18:00 05/05/24 11:52 Methylprednisolone Sodium Succinate 40 mg Q8H IV 05/02/24 18:30 05/05/24 10:36 Nystatin 1 applic BID TOP 05/02/24 22:00 05/05/24 09:40 Levalbuterol HCl 1.25 mg Q6HPRN PRN NEB 05/03/24 14:15 2/15/25 18:20 Erythromycin 1 applic Q4HR OP 05/04/24 02:00 05/05/24 14:24 Furosemide 60 mg DAILY IV 05/04/24 10:00 05/05/24 09:41 Meropenem 50 ml @ 17 mls/hr Q12H IV 05/04/24 19:00 05/05/24 05:34 Enoxaparin Sodium 100 mg Q12HR SC 05/04/24 22:00 Hold Lorazepam 1 mg Q8HP PRN IV 05/05/24 06:45 05/05/24 09:11 Enteral Nutritional Formula 27.5 gm BID PO 05/05/24 22:00 Heparin Sodium/ Dextrose 250 ml @ 11 mls/hr [id number] IV 05/05/24 12:15 laboratory and microbiology Laboratory Tests 05/05/24 04:25 05/04/24 02:56 Test 05/04/24 02:56 Range/Units Serum Glucose 191 H 74-106 mg/dL Assessment/Plan pulm edema pl effusion s/p thora acute ex of copd\ pneumonia CKD vs DEREEJ pt seen and examined in the ER events still restrained confused abg compensated hypercapnea CXR persistent pulmonary edema management plan continue supportive care bipap increase to 15/7 titrate Fi02 to sats 90% or above antibiotics for pneumonia diurese monitor renal function/utine outpuit may need HD and fluid removal defer to nephrology full code crit care time 35 min Dietary Evaluation Review Recommendations by RD: Dietary education by RD, Protein Supplementation Comments: 1) Initiate Omar @ 1 pk bid 2) Encourage good PO intake 3) Refer to outpatient RD/CDCES for weight management 4) Continue to monitor appetite, labs, and skin integrity Expected Outcomes/Goals: 1) appetite and labs to improve 2) wound to improve 3) f/u in 3-5 days Plan discussed with: Other (rt and rn) LEVON LEAVITT MD May 05, 2024 14:35
[2024-05-05] MEDS: MEROPENEM 500MG IVPB 50 ML IV SCH (19:17)
[2024-05-05 20:30] LABS: Base Excess 0.2 mmol/L (-2.0-3.0)
[2024-05-05 21:09] LABS: INR 1.28 (0.9-1.15); Partial Thromboplastin Time 57.2 SEC (24.5-34.5); Prothrombin Time 13.2 sec (9.3-11.8)
[2024-05-05] MEDS: Juven Orange Powder PACKET 27.5gm PO SCH (22:00)
--- NOTE | 2024-05-05 22:26 | DVHPN2 ---
Reviewed: Care Plan, H&P, Labs, Medications, Previous Orders, Radiology, Other Changes from previous H/P or p: No Changes General: Per HPI Eyes: No Pain, No Vision change, No Conjunctivae inflammation, No Eyelid inflammation, No Other, No Redness ENT: No Ear pain, No Ear discharge, No Nose pain, No Nose discharge, No Nose congestion, No Mouth pain, No Mouth swelling, No Throat pain, No Throat swelling, No Other Cardiovascular: Edema Respiratory: Shortness of breath, Wheezing Gastrointestinal: No Nausea, No Vomiting, No Abdominal Pain, No Diarrhea, No Constipation, No Melena, No Hematochezia, No Other Genitourinary: No Dysuria, No Frequency, No Incontinence, No Hematuria, No Retention, No Other Musculoskeletal: No other, No neck pain, No shoulder pain, No arm pain, No back pain, No hand pain, No leg pain, No foot pain Skin: Lesions, Bruising Objective Vitals Vital Signs Date Time Temp Pulse Resp B/P (MAP) Pulse Ox O2 Delivery O2 Flow Rate FiO2 05/05/24 22:13 109 109/66 100 Nasal BiPAP Mask 50 05/05/24 20:00 12 05/05/24 17:14 98.5 98.5 05/03/24 19:30 12 Intake/Output Intake and Output 05/05/24 07:00 Intake Total 422.26 ml Output Total 275 ml Balance 147.26 ml IV Total 422.26 ml Output Urine Total 275 ml Medications Current Medications Medications Dose Ordered Sig/Leonor Route Start Time Stop Time Status Last Admin Dose Admin Acetaminophen 650 mg Q6HP PRN PO 05/02/24 01:45 Morphine Sulfate 2 mg Q4HPRN PRN IV 05/02/24 01:45 Nitroglycerin 0.4 mg Q5MINP PRN SL 05/02/24 01:45 Morphine Sulfate 2 mg Q30M PRN IV 05/02/24 01:45 Guaifenesin 200 mg Q4HP PRN GT 05/02/24 08:30 Vancomycin HCl 0 ml @ 0 mls/hr UD IV 05/02/24 08:30 Diagnostic Test (Pha) 1 strip Q6HR 05/02/24 18:00 05/05/24 18:17 1 STRIP Insulin Human Regular Q6HR SC 05/02/24 18:00 05/05/24 18:20 3 UNITS Dextrose 50 ml UD PRN IV 05/02/24 13:00 Ipratropium [place] 0.5 mg Q6HWA NEB 05/02/24 18:00 05/05/24 18:50 0.5 MG Acetylcysteine 100 mg Q6HR NEB 05/02/24 18:00 05/05/24 18:51 100 MG Methylprednisolone Sodium Succinate 40 mg Q8H IV 05/02/24 18:30 05/05/24 18:21 40 MG Nystatin 1 applic BID TOP 05/02/24 22:00 05/05/24 09:40 1 APPLIC Levalbuterol HCl 1.25 mg Q6HPRN PRN NEB 05/03/24 14:15 05/05/24 18:50 1.25 MG Erythromycin 1 applic Q4HR OP 05/04/24 02:00 05/05/24 17:48 1 APPLIC Furosemide 60 mg DAILY IV 05/04/24 10:00 05/05/24 09:41 60 MG Enoxaparin Sodium 100 mg Q12HR SC 05/04/24 22:00 Hold Lorazepam 1 mg Q8HP PRN IV 05/05/24 06:45 05/05/24 09:11 1 MG Enteral Nutritional Formula 27.5 gm BID PO 05/05/24 22:00 Heparin Sodium/ Dextrose 250 ml @ 11 mls/hr [id number] IV 05/05/24 12:15 05/05/24 14:35 11 MLS/HR Meropenem 50 ml @ 17 mls/hr Q12HR@0800,2000 IV 05/05/24 20:00 05/05/24 19:17 17 MLS/HR Laboratory Results Laboratory Tests 05/04/24 02:56 05/05/24 04:25 Coagulation Test 05/05/24 04:25 05/05/24 13:31 05/05/24 20:21 Prothrombin Time 14.0 sec (9.3-11.8) H 13.8 sec (9.3-11.8) H 13.2 sec (9.3-11.8) H Prothrombin Time INR 1.36 (0.9-1.15) H 1.34 (0.9-1.15) H 1.28 (0.9-1.15) H Activated Partial Thromboplast Time 97.6 SEC (24.5-34.5) *H 64.3 SEC (24.5-34.5) H 57.2 SEC (24.5-34.5) H Urinalysis Test 05/01/24 21:45 Urine Color Yellow (Yellow) Urine Clarity Clear (Clear) Urine pH 5.5 (5.0-9.0) Urine Specific [place] 1.022 (1.001-1.035) Urine Protein 1+ (Negative) H Urine Ketones Trace (Negative) Urine Blood Trace /uL (Negative) H Urine Nitrite Negative (Negative) Urine Bilirubin Negative (Negative) Urine Urobilinogen 2 mg/dL (Negative) H Urine Leukocyte Esterase Negative /uL (Negative) Urine RBC 16 /hpf (0 - 3) Urine Microscopic WBC 2 /HPF (0-3) Urine Squamous Epithelial Cells Few /hpf (<5) Urine Bacteria None seen /hpf (None Seen) Urine Glucose Trace mg/dL (Normal) Blood Gas Results Test 05/05/24 13:38 05/05/24 20:14 Arterial Blood pH 7.301 (7.350-7.450) 7.307 (7.350-7.450) FiO2 % 50.0 50.0 Microbiology Microbiology Date/Time Source Procedure Growth Status 05/05/24 05:10 Nose MRSA Screen - Final Complete 05/02/24 13:10 Pleural Fluid Gram Stain - Final Resulted 05/02/24 13:10 Pleural Fluid Body Fluid Culture - Preliminary Resulted 05/02/24 08:07 Blood Blood Culture - Final Staphylococcus lugdunensis Complete Assessment/Plan Assessment/Plan # metabolic encephalopathy: Likely due to retention of CO2, metabolic encephalopathy due to underlying infection likely contributing. This morning post BiPAP patient had improved ABG and had more conversations. # delirium: In-hospital patient has hyperactive delirium with agitation, please continue supportive care, frequent reorientation, sleep-wake cycle. If possible please move with the patient to the room as soon as possible. # New onset of AFib RVR: Noted on EKG and telemetry, started the patient on amiodarone drip, as per RACE II trial we will try to keep the heart rate below 110. Partially heart rate high due to underlying sepsis. Cardiology consulted looking for input. # possible pericardial effusion, no tamponade: Pending echo/TTE. # essential hypertension: [place] blood pressure 130/ 80 or below. We will hold antihypertensives for now in the setting of sepsis/ Hemodynamic instability # Possible diastolic heart failure: BNP mildly elevated in 500s, pending TTE # heart failure with reduced ejection fraction 20%, cause unknown, cardiology consulted looking for input, not a candidate for GDM T, but started the patient on IV Lasix 60 daily. # past 40 pack-year smoking history, quit less than 15 years back. # Known COPD: Questionable noncompliance, continue levalbuterol and ipratropium therapeutic breathing treatment, influenza and COVID negative # Respiratory deconditioning secondary due to previous COVID pneumonia # chronic hypoxic /hypercapnic respiratory failure : baseline oxygen 4-5 L [id number], We will try to keep the SpO2 between 88-92 % # Left-sided massive pleural effusion: Status post removal of 3800+ mL of pleural fluid by IR. Samples sent, check for serum LDH, protein, light's criteria. Follow the result. # Respiratory acidosis, improving with BiPAP, as needed anxiety medications. # acute Gram-positive Gram-negative bacterial pneumonia: Check MRSA, check sputum culture, keep the patient on broad-spectrum antibiotics with covering both Gram-negative and Gram-positive. # Likely, re-expansion pulmonary edema: Likely due to removal of moderate amount of pleural fluid . Please start IV methylprednisolone. Continue levalbuterol and # GERD/ GI prophylaxis:ppi prophylaxis to continue # Mild hyperbilirubinemia: Abdominal finding unremarkable. Follow up CMP daily. # intertrigo, continue nystatin powder # sepsis: Likely due to community-acquired pneumonia, continue IV vancomycin and meropenem for now, pancultures pending follow closely. # mild thrombocytopenia: Close monitoring of H&H, platelets, hold heparin and anticoagulation. Follow up platelets # Patient is likely intravascularly dry, carbon dioxide 34, due to contraction alkalosis at this point. Check CMP tomorrow. # ?previous history of diabetes: HbA1c 5.5 no treatment needed at this point: [place] BG in-hospital 140-180 # peripheral arterial disease: Bilateral lower limb Extremely poor vasculature, vascular surgery consulted. 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 Code status: Modified code status with DNI, ACLS and chest compression without defibrillation. Discussed with the patient and patient's caregiver, paperwork in file. Patient's immediate family is sister with whom the patient has spoke last time more than 2 years back, who will come from [place] to visit him the earliest possible on upcoming Sunday 05/0705/04/2024: continue on bipap, drip and Levophed awaiting for ICU bed continue with heparin drip and amiodarone 05/05/2024: continue with drips discussed with nursing at bedside discussed with family member Plan discussed with: Patient My Orders Orders - LAKESHA HARE DO Procedure Category Date Status Time Abg W/ Co-Ox RT 05/05/24 Logged 13:10 Cover Wound With Foam KIRSTEN 05/05/24 In Process Dressing 15:27 Date of Service: May 05, 2024 Billing Provider: LAKESHA HARE DO Common Visit Codes: [id number] INP/OBS CARE(HIGH) LAKESHA HARE DO May 05, 2024 22:26
[2024-05-06] VITALS (107 sets, daily range): BP systolic 15–150; BP diastolic 42–90; PULSE 56–135; RESP 8–23; TEMP 97.4–98.1; O2SAT 88–100
[2024-05-06 03:35] LABS: Basophils # (auto) 0.2 10 ^3/uL (0-0.2); Basophils % (auto) 0.9 % (0.0-2.0); Eosinophils # (auto) 0 10 ^3/uL (0-0.8); Hematocrit 40.5 % (41.0-53.0); Hemoglobin 13.2 g/dL (13.5-17.5); Lymphocytes # (auto) 0.2 10 ^3/uL (0.4-5.4); Lymphocytes % (auto) 1.1 % (10.0-50.0); Mean Corpuscular Hemoglobin 32.5 pg (28.0-32.0); Mean Corpuscular Hgb Conc. 32.5 g/dL (32.0-36.0); Monocytes # (auto) 0.9 10 ^3/uL (0-1.3); Monocytes % (auto) 4.7 % (0.0-12.0); Neutrophils % (auto) 93.3 % (37.0-80.0); Nucleated Red Blood Cells % 0.2 %; Platelet Count (auto) 101 10^3/uL (140-450); Red Blood Cells 4.05 10^6/uL (4.5-5.90); Red Cell Distribution Width 18.5 % (11.8-14.3); White Blood Cell 18.2 10^3/uL (4.4-10.8)
[2024-05-06 03:53] LABS: Alanine Aminotransferase 37 U/L (7-40); Alkaline Phosphatase 75 U/L (46-116); Anion Gap 12 (5-15); Bilirubin, Total 0.5 mg/dL (0.2-1.0); Calcium 8.9 mg/dL (8.7-10.4); Chloride 100 mmol/L (98-107); INR 1.31 (0.9-1.15); Partial Thromboplastin Time 66.9 SEC (24.5-34.5); Potassium 4.6 mmol/L (3.5-5.1); Prothrombin Time 13.5 sec (9.3-11.8); Sodium 143 mmol/L (136-145); Total Protein 5.9 g/dL (5.7-8.2)
[2024-05-06 03:54] LABS: Albumin 2.9 g/dL (3.2-4.8); Aspartate Aminotransferase 109 U/L (13-40); Carbon Dioxide 31 mmol/L (20-31); Glucose 199 mg/dL (74-106)
[2024-05-06 03:55] LABS: Blood Urea Nitrogen 81 mg/dL (9-23)
[2024-05-06] MEDS: MORPHINE SULFATE INJ 2 MG/ml SYRG IV PRN (09:03)
--- NOTE | 2024-05-06 10:50 | DVH ---
CHEST RADIOGRAPH Indication: Gume / chest assessment Technique: Frontal view of the chest. Comparison: XY CHEST XRAY 1 VIEW on DOS: 05/03/24, XY CHEST XRAY 1 VIEW on DOS: 05/02/24, XY CHEST PORT ABLE on DOS: 05/02/24, CHEST PORTABLE on DOS: 04/22/21, CHEST PORTABLE on DOS: 04/21/21, XY CHEST XRAY 1 V IEW on DOS: 05/03/24 FINDINGS: LUNGS AND PLEURAL SPACES: Congestive heart failure with bilateral bilateral pleural effusions. HEART: Unremarkable. No cardiomegaly. MEDIASTINUM: Unremarkable. Normal mediastinal contour. BONES/JOINTS: Unremarkable. No acute fracture. TUBES, LINES AND DEVICES: Right IJ venous catheter with distal tip in the SVC. No pneumothorax. IMPRESSION: 1. Congestive heart failure with bilateral bilateral pleural effusions. 2. Right IJ venous catheter with distal tip in the SVC. No pneumothorax.
[2024-05-06] MEDS: BUMETANIDE 2.5mg/10ml (0.25 mg/ml) INJ IV ONE (11:15)
--- NOTE | 2024-05-06 11:15 | DVHINCON2 ---
Date of service: May 06, 2024 Referring Physician Hospitalist Reason for Consultation Acute kidney injury History of Present Illness 78-year-old white male past medical history of atrial fibrillation, congestive heart failure, COPD, high blood pressure presents to the hospital complaining of shortness of breath and weakness. His hospital course was notable for acute hypoxic respiratory failure. Patient is status post CT to rule out pulmonary embolism upon presentation. Given patient's DNR status. She was not intubated placed on BiPAP due to acute respiratory distress. He was noted to have congestive heart failure, AFib with rapid ventricular response and persistent ep isodes of hypotension. His blood cultures are also positive for bacteremia. She received vancomycin IV which was supratherapeutic for his infection. Nephrology consulted due to rapid progressive worsening renal function. At presentation patient's renal function was normal. Today patient has a creatinine greater than 4.0 Allergies: Coded Allergies: NO KNOWN ALLERGIES (Unverified , 07/30/17) Home Meds Reported Medications Metformin Hydrochloride (Metformin Hcl) 500 Mg Tab, 500 MG PO BID for 30 Days, MG 04/22/21 Current Medications Current Medications Medications (Trade) Dose Ordered Sig/Leonor Route PRN Reason Start Time Stop Time Status Last Admin Enteral Nutritional Formula (Omar Wirt Powder PACKET) 27.5 gm BID PO 05/05/24 22:00 Heparin Sodium/ Dextrose 250 ml @ 11 mls/hr [id number] IV 05/05/24 12:15 05/05/24 14:35 Meropenem 50 ml @ 17 mls/hr Q12HR@0800,2000 IV 05/05/24 20:00 05/06/24 08:00 Review of Systems Critically ill lethargy H&P Exam Vital Signs/I&O Vital Sign Date Time Temp Pulse Resp B/P (MAP) Pulse Ox O2 Delivery O2 Flow Rate FiO2 05/06/24 09:38 12 98 Bi-Pap+ 50 50 05/06/24 09:38 113 05/06/24 09:33 159/123 05/06/24 04:00 97.4 97.4 Intake and Output 05/05/24 05/06/24 19:00 07:00 Intake Total 356.12 ml 381.92 ml Output Total 50 ml 0 ml Balance 306.12 ml 381.92 ml Intake Oral 0 ml IV Total 356.12 ml 381.92 ml Output Urine Total 50 ml 0 ml Physical Exam Elderly white male Appears ill Breathing with nasal oxygen not intubated Bilateral congestion Abdomen is soft Venous stasis bilateral lower extremities Chavez catheter minimal urine output Labs/Diagnostic Data Labs/Diagnostic Data Laboratory Tests Test 05/06/24 05:28 05/06/24 03:17 05/05/24 23:46 05/05/24 20:21 Range/Units POC Glucose 208 H 198 H 70-106 mg/dl White Blood Count 18.2 H 4.4-10.8 10^3/uL Red Blood Count 4.05 L 4.5-5.90 10^6/uL Hemoglobin 13.2 L 13.5-17.5 g/dL Hematocrit 40.5 L 41.0-53.0 % Mean Corpuscular Volume 100.0 80.0-100.0 fL Mean Corpuscular Hemoglobin 32.5 H 28.0-32.0 pg Mean Corpuscular Hemoglobin Concent 32.5 32.0-36.0 g/dL Red Cell Distribution Width 18.5 H 11.8-14.3 % Platelet Count 101 L 140-450 10^3/uL Mean Platelet Volume 9.0 6.9-10.8 fL Neutrophils (%) (Auto) 93.3 H 37.0-80.0 % Lymphocytes (%) (Auto) 1.1 L 10.0-50.0 % Monocytes (%) (Auto) 4.7 0.0-12.0 % Eosinophils (%) (Auto) 0.0 0.0-7.0 % Basophils (%) (Auto) 0.9 0.0-2.0 % Neutrophils # (Auto) 17.0 H 1.6-8.6 10 ^3/uL Lymphocytes # (Auto) 0.2 L 0.4-5.4 10 ^3/uL Monocytes # (Auto) 0.9 0-1.3 10 ^3/uL Eosinophils # (Auto) 0 0-0.8 10 ^3/uL Basophils # (Auto) 0.2 0-0.2 10 ^3/uL Nucleated Red Blood Cells 0.2 % Prothrombin Time 13.5 H 13.2 H 9.3-11.8 sec Prothrombin Time INR 1.31 H 1.28 H 0.9-1.15 Activated Partial Thromboplast Time 66.9 H 57.2 H 24.5-34.5 SEC Sodium Level 143 136-145 mmol/L Potassium Level 4.6 3.5-5.1 mmol/L Chloride Level 100 98-107 mmol/L Carbon Dioxide Level 31 20-31 mmol/L Anion Gap 12 5-15 Blood Urea Nitrogen 81 *H 9-23 mg/dL Creatinine 4.05 H 0.700-1.30 mg/dL Glomerular Filtration Rate Calc 14 >90 mL/min BUN/Creatinine Ratio 20.0 10.0-20.0 Serum Glucose 199 H 74-106 mg/dL Calcium Level 8.9 8.7-10.4 mg/dL Total Bilirubin 0.5 0.2-1.0 mg/dL Aspartate Amino Transferase (AST) 109 H 13-40 U/L Alanine Aminotransferase (ALT) 37 7-40 U/L Alkaline Phosphatase 75 46-116 U/L Total Protein 5.9 5.7-8.2 g/dL Albumin 2.9 L 3.2-4.8 g/dL Random Vancomycin Level 26.7 H 5-10 ug/mL Test 05/05/24 20:14 05/05/24 18:08 05/05/24 13:38 05/05/24 13:31 Range/Units Blood Gas Specimen Type Arterial Arterial Blood Gas Sample Site Left radial Right radial Blood Gas Patient Temperature 37.0 37.0 Arterial Blood Date Drawn [id number] Arterial Blood pH 7.307 L 7.301 L 7.350-7.450 Arterial Blood Partial Pressure CO2 56.5 H 60.3 *H 35.0-48.0 mmHg Arterial Blood Partial Pressure O2 87.6 66.1 L 83.0-108.0 mmHg Arterial Blood HCO3 27.6 29.1 H 21.0-28.0 mmol/L Arterial Blood Oxygen Saturation 95.8 90.3 L 94.0-98.0 % Arterial Blood Base Excess 0.2 1.2 -2.0-3.0 mmol/L Arterial Blood Oxyhemoglobin 95.0 88.9 L 94.0-98.0 % Arterial Blood Carboxyhemoglobin 0.4 L 0.8 0.5-1.5 % Arterial Blood Methemoglobin 0.4 0.7 0.0-1.5 % Prosper Test Modified Modified Blood Gas Total Hemoglobin 14.10 14.20 13.5-17.5 g/dL Blood Gas Set Respiration Rate 12.0 12.0 Blood Gas Modality Mask - bipap Mask - bipap Blood Gas Spontaneous Rate 32 17 FiO2 % 50.0 50.0 Blood Gas Spontaneous Tidal Volume 404 Blood Gas EPAP 7 5 Blood Gas IPAP 15 12 Bl Gas Inspiratory/Expiratory Ratio 1:2 POC Glucose 194 H 70-106 mg/dl Blood Gas Critical Value Read Back yes Blood Gas Notified Whom Blood Gas Notified Time [id number] Blood Gas Notified By public relations manager kerline Prothrombin Time 13.8 H 9.3-11.8 sec Prothrombin Time INR 1.34 H 0.9-1.15 Activated Partial Thromboplast Time 64.3 H 24.5-34.5 SEC Test 05/05/24 12:12 05/05/24 05:21 05/05/24 04:25 05/04/24 23:37 Range/Units POC Glucose 125 H 193 H 192 H 70-106 mg/dl White Blood Count 20.8 H 4.4-10.8 10^3/uL Red Blood Count 4.07 L 4.5-5.90 10^6/uL Hemoglobin 13.6 13.5-17.5 g/dL Hematocrit 41.2 41.0-53.0 % Mean Corpuscular Volume 101.2 H 80.0-100.0 fL Mean Corpuscular Hemoglobin 33.3 H 28.0-32.0 pg Mean Corpuscular Hemoglobin Concent 32.9 32.0-36.0 g/dL Red Cell Distribution Width 18.4 H 11.8-14.3 % Platelet Count 103 L 140-450 10^3/uL Mean Platelet Volume 8.9 6.9-10.8 fL Neutrophils (%) (Auto) 93.5 H 37.0-80.0 % Lymphocytes (%) (Auto) 0.9 L 10.0-50.0 % Monocytes (%) (Auto) 5.3 0.0-12.0 % Eosinophils (%) (Auto) 0.0 0.0-7.0 % Basophils (%) (Auto) 0.3 0.0-2.0 % Neutrophils # (Auto) 19.4 H 1.6-8.6 10 ^3/uL Lymphocytes # (Auto) 0.2 L 0.4-5.4 10 ^3/uL Monocytes # (Auto) 1.1 0-1.3 10 ^3/uL Eosinophils # (Auto) 0 0-0.8 10 ^3/uL Basophils # (Auto) 0.1 0-0.2 10 ^3/uL Nucleated Red Blood Cells 0.1 % Prothrombin Time 14.0 H 9.3-11.8 sec Prothrombin Time INR 1.36 H 0.9-1.15 Activated Partial Thromboplast Time 97.6 *H 24.5-34.5 SEC Creatinine 3.47 H 0.700-1.30 mg/dL Glomerular Filtration Rate Calc 17 >90 mL/min Random Vancomycin Level 27.6 H 5-10 ug/mL Test 05/04/24 21:53 05/04/24 18:34 05/04/24 09:00 05/04/24 06:18 Range/Units POC Glucose 207 H 217 H 70-106 mg/dl Prothrombin Time 14.4 H 15.8 H 9.3-11.8 sec Prothrombin Time INR 1.41 H 1.56 H 0.9-1.15 Activated Partial Thromboplast Time 108.8 *H > 139.0 *H 24.5-34.5 SEC Test 05/04/24 02:56 05/04/24 00:05 05/03/24 23:13 05/03/24 18:48 Range/Units White Blood Count 21.7 H 19.6 H 4.4-10.8 10^3/uL Red Blood Count 4.37 L 4.39 L 4.5-5.90 10^6/uL Hemoglobin 14.6 14.2 13.5-17.5 g/dL Hematocrit 44.5 44.0 41.0-53.0 % Mean Corpuscular Volume 101.9 H 100.2 H 80.0-100.0 fL Mean Corpuscular Hemoglobin 33.3 H 32.4 H 28.0-32.0 pg Mean Corpuscular Hemoglobin Concent 32.7 32.4 32.0-36.0 g/dL Red Cell Distribution Width 18.1 H 18.7 H 11.8-14.3 % Platelet Count 128 L 114 L 140-450 10^3/uL Mean Platelet Volume 8.6 8.5 6.9-10.8 fL Neutrophils (%) (Auto) 93.4 H 93.4 H 37.0-80.0 % Lymphocytes (%) (Auto) 1.3 L 1.5 L 10.0-50.0 % Monocytes (%) (Auto) 4.8 5.0 0.0-12.0 % Eosinophils (%) (Auto) 0.0 0.0 0.0-7.0 % Basophils (%) (Auto) 0.5 0.1 0.0-2.0 % Neutrophils # (Auto) 20.2 H 18.3 H 1.6-8.6 10 ^3/uL Lymphocytes # (Auto) 0.3 L 0.3 L 0.4-5.4 10 ^3/uL Monocytes # (Auto) 1.1 1.0 0-1.3 10 ^3/uL Eosinophils # (Auto) 0 0 0-0.8 10 ^3/uL Basophils # (Auto) 0.1 0 0-0.2 10 ^3/uL Nucleated Red Blood Cells 0.1 0.1 % Sodium Level 141 136-145 mmol/L Potassium Level 4.3 3.5-5.1 mmol/L Chloride Level 99 98-107 mmol/L Carbon Dioxide Level 31 20-31 mmol/L Anion Gap 11 5-15 Blood Urea Nitrogen 34 #H 9-23 mg/dL Creatinine 2.36 H 0.700-1.30 mg/dL Glomerular Filtration Rate Calc 27 >90 mL/min BUN/Creatinine Ratio 14.4 10.0-20.0 Serum Glucose 191 H 74-106 mg/dL Calcium Level 9.6 8.7-10.4 mg/dL Total Bilirubin 0.7 0.2-1.0 mg/dL Aspartate Amino Transferase (AST) 67 H 13-40 U/L Alanine Aminotransferase (ALT) 23 7-40 U/L Alkaline Phosphatase 81 46-116 U/L Total Protein 6.8 5.7-8.2 g/dL Albumin 3.3 3.2-4.8 g/dL Vancomycin Level Trough 36.2 *H 5-10 ug/mL POC Glucose 200 H 218 H 70-106 mg/dl Prothrombin Time 14.2 H 9.3-11.8 sec Prothrombin Time INR 1.38 H 0.9-1.15 Activated Partial Thromboplast Time 27.8 24.5-34.5 SEC Test 2/14/25 12:27 05/03/24 07:27 05/03/24 06:00 05/03/24 05:35 Range/Units POC Glucose 170 H 139 H 70-106 mg/dl Blood Gas Specimen Type Arterial Blood Gas Sample Site Right radial Blood Gas Patient Temperature 37.0 Arterial Blood Date Drawn [id number] Arterial Blood pH 7.331 L 7.350-7.450 Arterial Blood Partial Pressure CO2 56.1 H 35.0-48.0 mmHg Arterial Blood Partial Pressure O2 98.2 83.0-108.0 mmHg Arterial Blood HCO3 29.0 H 21.0-28.0 mmol/L Arterial Blood Oxygen Saturation 97.5 94.0-98.0 % Arterial Blood Base Excess 1.6 -2.0-3.0 mmol/L Arterial Blood Oxyhemoglobin 96.0 94.0-98.0 % Arterial Blood Carboxyhemoglobin 0.8 0.5-1.5 % Arterial Blood Methemoglobin 0.7 0.0-1.5 % Prosper Test Yes Blood Gas Total Hemoglobin 16.40 13.5-17.5 g/dL Blood Gas Set Respiration Rate 12.0 Blood Gas Modality Mask - bipap FiO2 % 90.0 Blood Gas EPAP 5 Blood Gas IPAP 12 White Blood Count 23.4 #H 4.4-10.8 10^3/uL Red Blood Count 4.59 4.5-5.90 10^6/uL Hemoglobin 15.4 13.5-17.5 g/dL Hematocrit 46.7 41.0-53.0 % Mean Corpuscular Volume 101.8 H 80.0-100.0 fL Mean Corpuscular Hemoglobin 33.6 H 28.0-32.0 pg Mean Corpuscular Hemoglobin Concent 33.0 32.0-36.0 g/dL Red Cell Distribution Width 18.7 H 11.8-14.3 % Platelet Count 120 L 140-450 10^3/uL Mean Platelet Volume 8.7 6.9-10.8 fL Neutrophils (%) (Auto) 94.3 H 37.0-80.0 % Lymphocytes (%) (Auto) 1.6 L 10.0-50.0 % Monocytes (%) (Auto) 3.8 0.0-12.0 % Eosinophils (%) (Auto) 0.0 0.0-7.0 % Basophils (%) (Auto) 0.3 0.0-2.0 % Neutrophils # (Auto) 22.0 H 1.6-8.6 10 ^3/uL Lymphocytes # (Auto) 0.4 0.4-5.4 10 ^3/uL Monocytes # (Auto) 0.9 0-1.3 10 ^3/uL Eosinophils # (Auto) 0 0-0.8 10 ^3/uL Basophils # (Auto) 0.1 0-0.2 10 ^3/uL Nucleated Red Blood Cells 0.0 % Sodium Level 142 136-145 mmol/L Potassium Level 4.6 3.5-5.1 mmol/L Chloride Level 99 98-107 mmol/L Carbon Dioxide Level 32 H 20-31 mmol/L Anion Gap 11 5-15 Blood Urea Nitrogen 17 9-23 mg/dL Creatinine 1.43 H 0.700-1.30 mg/dL Glomerular Filtration Rate Calc 50 >90 mL/min BUN/Creatinine Ratio 11.9 10.0-20.0 Serum Glucose 139 H 74-106 mg/dL Calcium Level 9.6 8.7-10.4 mg/dL Test 05/03/24 00:36 05/02/24 18:47 05/02/24 18:16 05/02/24 16:00 Range/Units POC Glucose 122 H 143 H 70-106 mg/dl Blood Gas Specimen Type Arterial Arterial Blood Gas Sample Site Left radial Right radial Blood Gas Patient Temperature 37.0 37.0 Arterial Blood Date Drawn [id number] Arterial Blood pH 7.316 L 7.227 *L 7.350-7.450 Arterial Blood Partial Pressure CO2 62.2 *H 85.0 *H 35.0-48.0 mmHg Arterial Blood Partial Pressure O2 52.2 *L 43.1 *L 83.0-108.0 mmHg Arterial Blood HCO3 31.0 H 34.6 H 21.0-28.0 mmol/L Arterial Blood Oxygen Saturation 85.5 L 75.0 *L 94.0-98.0 % Arterial Blood Base Excess 2.7 3.2 H -2.0-3.0 mmol/L Arterial Blood Oxyhemoglobin 84.2 L 73.7 L 94.0-98.0 % Arterial Blood Carboxyhemoglobin 0.9 1.1 0.5-1.5 % Arterial Blood Methemoglobin 0.6 0.6 0.0-1.5 % Prosper Test Yes Yes Blood Gas Total Hemoglobin 16.90 16.90 13.5-17.5 g/dL Blood Gas Modality Mask - bipap Mask - nrb FiO2 % 100.0 100.0 Specimen Drawn By Blood Gas Critical Value Read Back Yes Yes Blood Gas Notified Whom Alexa dutta md Blood Gas Notified Time [id number] Blood Gas Notified By Test 05/02/24 13:10 05/02/24 11:26 05/02/24 10:10 05/02/24 08:07 Range/Units Body Fluid Source Pleural fluid Body Fluid pH 8.0 Body Fluid WBC (Manual) 107 0-200 CUMM Body Fluid RBC (Manual) 175 0-2000 CUMM Body Fluid Mononuclear Cells 88 % Body Fluid Polymorphonuclear Cells 12 0-25 % Body Fluid Glucose 148 . mg/dL Body Fluid Total Protein 3.0 . g/dL Body Fluid Lactate Dehydrogenase 72 . IU/L POC Glucose 137 H 70-106 mg/dl White Blood Count 13.4 H 4.4-10.8 10^3/uL Red Blood Count 4.27 L 4.5-5.90 10^6/uL Hemoglobin 14.3 13.5-17.5 g/dL Hematocrit 43.7 41.0-53.0 % Mean Corpuscular Volume 102.3 H 80.0-100.0 fL Mean Corpuscular Hemoglobin 33.5 H 28.0-32.0 pg Mean Corpuscular Hemoglobin Concent 32.8 32.0-36.0 g/dL Red Cell Distribution Width 18.2 H 11.8-14.3 % Platelet Count 128 L 140-450 10^3/uL Mean Platelet Volume 8.1 6.9-10.8 fL Neutrophils (%) (Auto) 88.2 H 37.0-80.0 % Lymphocytes (%) (Auto) 3.2 L 10.0-50.0 % Monocytes (%) (Auto) 8.5 0.0-12.0 % Eosinophils (%) (Auto) 0.0 0.0-7.0 % Basophils (%) (Auto) 0.1 0.0-2.0 % Neutrophils # (Auto) 11.8 H 1.6-8.6 10 ^3/uL Lymphocytes # (Auto) 0.4 0.4-5.4 10 ^3/uL Monocytes # (Auto) 1.1 0-1.3 10 ^3/uL Eosinophils # (Auto) 0 0-0.8 10 ^3/uL Basophils # (Auto) 0 0-0.2 10 ^3/uL Nucleated Red Blood Cells 0.1 % Lactic Acid Level 1.8 0.4-2.0 mmol/L Test 05/02/24 07:35 05/02/24 06:15 05/02/24 02:16 05/02/24 02:11 Range/Units POC Glucose 153 H 70-106 mg/dl White Blood Count 12.4 #H 4.4-10.8 10^3/uL Red Blood Count 4.00 L 4.5-5.90 10^6/uL Hemoglobin 14.1 13.5-17.5 g/dL Hematocrit 41.2 41.0-53.0 % Mean Corpuscular Volume 103.0 H 80.0-100.0 fL Mean Corpuscular Hemoglobin 35.3 H 28.0-32.0 pg Mean Corpuscular Hemoglobin Concent 34.3 32.0-36.0 g/dL Red Cell Distribution Width 18.3 H 11.8-14.3 % Platelet Count 122 L 140-450 10^3/uL Mean Platelet Volume 8.3 6.9-10.8 fL Neutrophils (%) (Auto) 90.3 H 37.0-80.0 % Lymphocytes (%) (Auto) 2.1 L 10.0-50.0 % Monocytes (%) (Auto) 7.4 0.0-12.0 % Eosinophils (%) (Auto) 0.0 0.0-7.0 % Basophils (%) (Auto) 0.2 0.0-2.0 % Neutrophils # (Auto) 11.2 H 1.6-8.6 10 ^3/uL Lymphocytes # (Auto) 0.3 L 0.4-5.4 10 ^3/uL Monocytes # (Auto) 0.9 0-1.3 10 ^3/uL Eosinophils # (Auto) 0 0-0.8 10 ^3/uL Basophils # (Auto) 0 0-0.2 10 ^3/uL Nucleated Red Blood Cells 0.0 % Prothrombin Time 14.4 H 13.2 H 9.3-11.8 sec Prothrombin Time INR 1.41 H 1.28 H 0.9-1.15 Activated Partial Thromboplast Time 30.8 25.6 24.5-34.5 SEC Sodium Level 139 136-145 mmol/L Potassium Level 4.2 3.5-5.1 mmol/L Chloride Level 98 98-107 mmol/L Carbon Dioxide Level 34 H 20-31 mmol/L Anion Gap 7 5-15 Blood Urea Nitrogen 9 9-23 mg/dL Creatinine 0.95 0.700-1.30 mg/dL Glomerular Filtration Rate Calc 82 >90 mL/min BUN/Creatinine Ratio 9.5 L 10.0-20.0 Serum Glucose 179 H 74-106 mg/dL Calcium Level 9.6 8.7-10.4 mg/dL Total Bilirubin 1.2 H 0.2-1.0 mg/dL Aspartate Amino Transferase (AST) 24 13-40 U/L Alanine Aminotransferase (ALT) 17 7-40 U/L Alkaline Phosphatase 102 46-116 U/L Lactate Dehydrogenase 256 H 120-246 U/L Total Protein 7.4 5.7-8.2 g/dL Albumin 3.6 3.2-4.8 g/dL Influenza Type A Antigen Negative Negative Influenza Type B Antigen Negative Negative SARS-CoV-2 Antigen (Rapid) Negative NEGATIVE D-Dimer, Quantitative 1.51 H 0.0-0.49 mg/L FEU Hemoglobin A1c 5.5 <5.7 % A1C Thyroid Stimulating Hormone (TSH) 2.35 0.55-4.78 uIU/mL Test 05/01/24 21:45 05/01/24 19:53 05/01/24 18:07 05/01/24 17:09 Range/Units Urine Color Yellow Yellow Urine Clarity Clear Clear Urine pH 5.5 5.0-9.0 Urine Specific [place] 1.022 1.001-1.035 Urine Protein 1+ H Negative Urine Ketones Trace Negative Urine Blood Trace H Negative /uL Urine Nitrite Negative Negative Urine Bilirubin Negative Negative Urine Urobilinogen 2 H Negative mg/dL Urine Leukocyte Esterase Negative Negative /uL Urine RBC 16 0 - 3 /hpf Urine Microscopic WBC 2 0-3 /HPF Urine Squamous Epithelial Cells Few <5 /hpf Urine Bacteria None seen None Seen /hpf Urine Glucose Trace Normal mg/dL Urine Opiates Screen Neg NEGATIVE Urine Fentanyl Screen Neg NEGATIVE Urine Barbiturates Screen Neg NEGATIVE Urine Phencyclidine Screen Neg NEGATIVE Urine Amphetamines Screen Neg NEGATIVE Urine Benzodiazepines Screen Neg NEGATIVE Urine Cocaine Screen Neg NEGATIVE Urine Cannabinoids Screen Neg NEGATIVE Troponin I High Sensitivity 17 17 18 </=54 ng/L White Blood Count 7.4 4.4-10.8 10^3/uL Red Blood Count 4.43 L 4.5-5.90 10^6/uL Hemoglobin 15.2 13.5-17.5 g/dL Hematocrit 45.7 41.0-53.0 % Mean Corpuscular Volume 103.2 H 80.0-100.0 fL Mean Corpuscular Hemoglobin 34.3 H 28.0-32.0 pg Mean Corpuscular Hemoglobin Concent 33.2 32.0-36.0 g/dL Red Cell Distribution Width 18.4 H 11.8-14.3 % Platelet Count 124 L 140-450 10^3/uL Mean Platelet Volume 8.4 6.9-10.8 fL Neutrophils (%) (Auto) 84.8 H 37.0-80.0 % Lymphocytes (%) (Auto) 7.1 L 10.0-50.0 % Monocytes (%) (Auto) 7.4 0.0-12.0 % Eosinophils (%) (Auto) 0.3 0.0-7.0 % Basophils (%) (Auto) 0.4 0.0-2.0 % Neutrophils # (Auto) 6.2 1.6-8.6 10 ^3/uL Lymphocytes # (Auto) 0.5 0.4-5.4 10 ^3/uL Monocytes # (Auto) 0.5 0-1.3 10 ^3/uL Eosinophils # (Auto) 0 0-0.8 10 ^3/uL Basophils # (Auto) 0 0-0.2 10 ^3/uL Nucleated Red Blood Cells 0.1 % Sodium Level 141 136-145 mmol/L Potassium Level 4.2 3.5-5.1 mmol/L Chloride Level 99 98-107 mmol/L Carbon Dioxide Level 34 H 20-31 mmol/L Anion Gap 8 5-15 Blood Urea Nitrogen 9 9-23 mg/dL Creatinine 0.84 0.700-1.30 mg/dL Glomerular Filtration Rate Calc 89 >90 mL/min BUN/Creatinine Ratio 10.7 10.0-20.0 Serum Glucose 150 H 74-106 mg/dL Calcium Level 9.4 8.7-10.4 mg/dL Total Bilirubin 1.3 H 0.2-1.0 mg/dL Aspartate Amino Transferase (AST) 31 13-40 U/L Alanine Aminotransferase (ALT) 19 7-40 U/L Alkaline Phosphatase 117 H 46-116 U/L B-Type Natriuretic Peptide 453.86 0-100 pg/mL Total Protein 7.5 5.7-8.2 g/dL Albumin 3.6 3.2-4.8 g/dL Microbiology Date/Time Source Procedure Growth Status 05/05/24 05:10 Nose MRSA Screen - Final Complete 05/02/24 08:07 Blood Blood Culture - Final Staphylococcus lugdunensis Complete Assessment Acute kidney injury suspect acute tubular necrosis in the setting of contrast exposure and vancomycin nephrotoxicity Patient also has superimposed hemodynamic states in the setting of low ejection fraction and persistent tachycardia. No previous CKD Hypercarbic respiratory insufficiency COPD Acidosis Atrial fibrillation with rapid ventricular response sepsis due to staph bacteremia Repeat urinalysis today, chest x-ray today Hold vancomycin until therapeutic levels less than 20 Improve rate control and maintain mean arterial pressure greater than 65 Patient failed diuretic challenge we will give higher dose today monitor urinary output. Avoid contrast studies at this time, avoid nonsteroidal anti-inflammatory drugs, avoid NIRAV inhibitors or angiotensin blockers at this time. The patient consumes to decline I recommend placement of a dialysis catheter Pulmonary critical care Critical care time spent 35 minutes Plan discussed with: Patient BEE QUIROGA MD May 06, 2024 11:15
--- NOTE | 2024-05-06 11:33 | DVHINCON2 ---
Date Seen: May 06, 2024 Reason for Consultation Bilateral lower extremity abrasions History of Present Illness KATH VILLEGAS is a 78 y o male with PMH of type 2 DM, HTN, AFib, COPD on home oxygen presented to the ED with the chief complaints of bilateral lower leg weakness and ongoing shortness of breath. Patient is poor historian, unable to obtain a complete history but patient is mentioning when he is trying to stand up, he feels his legs are giving up and weakness which is more concerning for him to visit ED. patient has lives with a ui ux web developer. On my assessment patient denies fever, cold, nausea, vomiting, diaphoresis, and other acute associated symptoms. Past Medical History See H&P Past Surgical History See H&P Allergies: Coded Allergies: NO KNOWN ALLERGIES (Unverified , 07/30/17) Home Meds Reported Medications Metformin Hydrochloride (Metformin Hcl) 500 Mg Tab, 500 MG PO BID for 30 Days, MG 04/22/21 Current Medications Current Medications Medications (Trade) Dose Ordered Sig/Leonor Route PRN Reason Start Time Stop Time Status Last Admin Enteral Nutritional Formula (Omar Adair Powder PACKET) 27.5 gm BID PO 05/05/24 22:00 Heparin Sodium/ Dextrose 250 ml @ 11 mls/hr [id number] IV 05/05/24 12:15 05/05/24 14:35 Meropenem 50 ml @ 17 mls/hr Q12HR@0800,2000 IV 05/05/24 20:00 05/06/24 08:00 Vital Signs Vital Signs Date Time Temp Pulse Resp B/P (MAP) Pulse Ox O2 Delivery O2 Flow Rate FiO2 05/06/24 09:38 12 98 Bi-Pap+ 50 50 05/06/24 09:38 113 05/06/24 09:33 159/123 05/06/24 04:00 97.4 97.4 Physical Exam DERMATOLOGIC EXAM: - Skin is dry and cool to the touch dry bilaterally. - Nails 1-5 of the bilateral foot are thickened, discolored, dystrophic, and tender to palpate with subungual debris - Hair loss noted to bilateral feet - multiple bilateral lower extremity abrasions VASCULAR EXAM: - DP and PT pulses are palpable bilaterally. - HELIUM ARC WELDER is brisk to all digits. - Feet are cool to touch compared to lower legs bilaterally. - 2+ pitting edema NEUROLOGIC EXAM: - Normal light touch sensation to the superficial peroneal, deep peroneal, sural, saphenous, and tibial nerve branches. - Protective sensation is diminished as tested with a 5.07 10g Clark-Arias bilaterally. MUSCULOSKELETAL EXAM: - No gross deformities - Muscle strength is 5/5 and active motion is pain-free and symmetrical bilaterally - No pain or crepitation with passive range of motion bilaterally to all major pedal joints Labs/Diagnostic Data Labs Test 05/06/24 05:28 05/06/24 03:17 05/05/24 20:14 05/05/24 13:38 Range/Units POC Glucose 208 H 70-106 mg/dl White Blood Count 18.2 H 4.4-10.8 10^3/uL Red Blood Count 4.05 L 4.5-5.90 10^6/uL Hemoglobin 13.2 L 13.5-17.5 g/dL Hematocrit 40.5 L 41.0-53.0 % Mean Corpuscular Volume 100.0 80.0-100.0 fL Mean Corpuscular Hemoglobin 32.5 H 28.0-32.0 pg Mean Corpuscular Hemoglobin Concent 32.5 32.0-36.0 g/dL Red Cell Distribution Width 18.5 H 11.8-14.3 % Platelet Count 101 L 140-450 10^3/uL Mean Platelet Volume 9.0 6.9-10.8 fL Neutrophils (%) (Auto) 93.3 H 37.0-80.0 % Lymphocytes (%) (Auto) 1.1 L 10.0-50.0 % Monocytes (%) (Auto) 4.7 0.0-12.0 % Eosinophils (%) (Auto) 0.0 0.0-7.0 % Basophils (%) (Auto) 0.9 0.0-2.0 % Neutrophils # (Auto) 17.0 H 1.6-8.6 10 ^3/uL Lymphocytes # (Auto) 0.2 L 0.4-5.4 10 ^3/uL Monocytes # (Auto) 0.9 0-1.3 10 ^3/uL Eosinophils # (Auto) 0 0-0.8 10 ^3/uL Basophils # (Auto) 0.2 0-0.2 10 ^3/uL Nucleated Red Blood Cells 0.2 % Prothrombin Time 13.5 H 9.3-11.8 sec Prothrombin Time INR 1.31 H 0.9-1.15 Activated Partial Thromboplast Time 66.9 H 24.5-34.5 SEC Sodium Level 143 136-145 mmol/L Potassium Level 4.6 3.5-5.1 mmol/L Chloride Level 100 98-107 mmol/L Carbon Dioxide Level 31 20-31 mmol/L Anion Gap 12 5-15 Blood Urea Nitrogen 81 *H 9-23 mg/dL Creatinine 4.05 H 0.700-1.30 mg/dL Glomerular Filtration Rate Calc 14 >90 mL/min BUN/Creatinine Ratio 20.0 10.0-20.0 Serum Glucose 199 H 74-106 mg/dL Calcium Level 8.9 8.7-10.4 mg/dL Total Bilirubin 0.5 0.2-1.0 mg/dL Aspartate Amino Transferase (AST) 109 H 13-40 U/L Alanine Aminotransferase (ALT) 37 7-40 U/L Alkaline Phosphatase 75 46-116 U/L Total Protein 5.9 5.7-8.2 g/dL Albumin 2.9 L 3.2-4.8 g/dL Random Vancomycin Level 26.7 H 5-10 ug/mL Blood Gas Specimen Type Arterial Blood Gas Sample Site Left radial Blood Gas Patient Temperature 37.0 Arterial Blood Date Drawn [id number] Arterial Blood pH 7.307 L 7.350-7.450 Arterial Blood Partial Pressure CO2 56.5 H 35.0-48.0 mmHg Arterial Blood Partial Pressure O2 87.6 83.0-108.0 mmHg Arterial Blood HCO3 27.6 21.0-28.0 mmol/L Arterial Blood Oxygen Saturation 95.8 94.0-98.0 % Arterial Blood Base Excess 0.2 -2.0-3.0 mmol/L Arterial Blood Oxyhemoglobin 95.0 94.0-98.0 % Arterial Blood Carboxyhemoglobin 0.4 L 0.5-1.5 % Arterial Blood Methemoglobin 0.4 0.0-1.5 % Prosper Test Modified Blood Gas Total Hemoglobin 14.10 13.5-17.5 g/dL Blood Gas Set Respiration Rate 12.0 Blood Gas Modality Mask - bipap Blood Gas Spontaneous Rate 32 FiO2 % 50.0 Blood Gas Spontaneous Tidal Volume 404 Blood Gas EPAP 7 Blood Gas IPAP 15 Bl Gas Inspiratory/Expiratory Ratio 1:2 Blood Gas Critical Value Read Back yes Blood Gas Notified Whom Blood Gas Notified Time [id number] Blood Gas Notified By credit controller kerline Test 05/04/24 02:56 05/02/24 18:47 05/02/24 13:10 05/02/24 08:07 Range/Units Vancomycin Level Trough 36.2 *H 5-10 ug/mL Specimen Drawn By Body Fluid Source Pleural fluid Body Fluid pH 8.0 Body Fluid WBC (Manual) 107 0-200 CUMM Body Fluid RBC (Manual) 175 0-2000 CUMM Body Fluid Mononuclear Cells 88 % Body Fluid Polymorphonuclear Cells 12 0-25 % Body Fluid Glucose 148 . mg/dL Body Fluid Total Protein 3.0 . g/dL Body Fluid Lactate Dehydrogenase 72 . IU/L Lactic Acid Level 1.8 0.4-2.0 mmol/L Test 05/02/24 06:15 05/02/24 02:16 05/02/24 02:11 05/01/24 21:45 Range/Units Lactate Dehydrogenase 256 H 120-246 U/L Influenza Type A Antigen Negative Negative Influenza Type B Antigen Negative Negative SARS-CoV-2 Antigen (Rapid) Negative NEGATIVE D-Dimer, Quantitative 1.51 H 0.0-0.49 mg/L FEU Hemoglobin A1c 5.5 <5.7 % A1C Thyroid Stimulating Hormone (TSH) 2.35 0.55-4.78 uIU/mL Urine Color Yellow Yellow Urine Clarity Clear Clear Urine pH 5.5 5.0-9.0 Urine Specific Leroy 1.022 1.001-1.035 Urine Protein 1+ H Negative Urine Ketones Trace Negative Urine Blood Trace H Negative /uL Urine Nitrite Negative Negative Urine Bilirubin Negative Negative Urine Urobilinogen 2 H Negative mg/dL Urine Leukocyte Esterase Negative Negative /uL Urine RBC 16 0 - 3 /hpf Urine Microscopic WBC 2 0-3 /HPF Urine Squamous Epithelial Cells Few <5 /hpf Urine Bacteria None seen None Seen /hpf Urine Glucose Trace Normal mg/dL Urine Opiates Screen Neg NEGATIVE Urine Fentanyl Screen Neg NEGATIVE Urine Barbiturates Screen Neg NEGATIVE Urine Phencyclidine Screen Neg NEGATIVE Urine Amphetamines Screen Neg NEGATIVE Urine Benzodiazepines Screen Neg NEGATIVE Urine Cocaine Screen Neg NEGATIVE Urine Cannabinoids Screen Neg NEGATIVE Test 05/01/24 19:53 05/01/24 17:09 Range/Units Troponin I High Sensitivity 17 </=54 ng/L B-Type Natriuretic Peptide 453.86 0-100 pg/mL Microbiology Date/Time Source Procedure Growth Status 05/05/24 05:10 Nose MRSA Screen - Final Complete 05/02/24 13:10 Pleural Fluid Gram Stain - Final Resulted 05/02/24 13:10 Pleural Fluid Body Fluid Culture - Preliminary Resulted 05/02/24 08:07 Blood Blood Culture - Final Staphylococcus lugdunensis Complete Problems(with codes): (1) Generalized weakness (2) History of lung cancer (3) Moderate protein malnutrition (4) Pneumonia due to COVID-19 virus (5) COPD (chronic obstructive pulmonary disease) (6) Uncontrolled diabetes mellitus (7) Pulmonary vascular congestion Plan/Recommendation ASSESSMENT: Patient is a 78-year-old seen on the floor for worsening bilateral lower extremity abrasions PLAN: - The patients chart was reviewed, clinical findings were discussed with the patient, the etiologies of the conditions were discussed in detail, and a treatment plan was agreed to at this time, with both oral and written instructions provided. - reviewed advanced imaging - discussed that the wounds appears to be superficial - patient can continue with local wound care by the wound care team - no surgical intervention needed - patient can follow up with outpatient wound care - recommend [facility] All questions were answered and concerns addressed to the patient's satisfaction. The patient was given the phone number to the clinic and was told how to make contact with the clinic should any concerns or questions arise. Patient understands that if any questions or concerns arise prior to the next appointment, we should be contacted immediately. FOLLOW-UP: Continue to follow while inpatient Plan discussed with: Patient Date of Service: May 06, 2024 Billing Provider: YARIEL ORDAZ DPM Common Visit Codes: CONSULT ONLY Consultation Codes: [id number] CONSULT <80MIN YARIEL ORDAZ DPM May 06, 2024 11:33
[2024-05-06 15:46] LABS: Chloride 99 mmol/L (98-107); Sodium 142 mmol/L (136-145)
[2024-05-06 15:47] LABS: Anion Gap 13 (5-15); Calcium 8.8 mg/dL (8.7-10.4); Carbon Dioxide 30 mmol/L (20-31)
[2024-05-06 15:48] LABS: Potassium 5.3 mmol/L (3.5-5.1)
[2024-05-06 15:52] LABS: BUN/Creatinine Ratio 20.2 (10.0-20.0)
[2024-05-06 15:53] LABS: Glucose 196 mg/dL (74-106)
[2024-05-06 15:54] LABS: Blood Urea Nitrogen 91 mg/dL (9-23)
[2024-05-06] MEDS: DEXTROSE (50%) 50ML SYRG IV ONE ×2 (17:00→18:42)
[2024-05-06] MEDS: InsuLIN REG 1unit/0.01ml Soln (100units/ml) IV ONE ×2 (17:00→18:00)
[2024-05-06] MEDS: IPRATROPIUM BROM 0.5 MG/2.5ML INH SOL NEB SCH (18:00)
[2024-05-06] MEDS: ACETYLCYSTEINE 10 %(100MG/ML) SOL 4ML NEB SCH (18:00)
[2024-05-06] MEDS: SODIUM BICARB 8.4% 50Meq/50ml SYR Vial IV ONE (18:43)
[2024-05-06] MEDS ORDERED: HEPARIN 1,000 UNITS/ml 1ML VIAL IV ONE (20:00)
--- NOTE | 2024-05-06 20:00 | DVHNC2 ---
Procedure - ULTRASOUND-GUIDED LEFT INTERNAL JUGULAR CENTRAL VENOUS CANNULATION for Josh (Large Bore) Catheter placement CPT Codes: 71413 (ultrasound guidance) 43676 (insertion of non-tunneled centrally inserted central venous catheter) 67642 (CXR interpretation) PHYSICIAN: Tom Rivas PREOPERATIVE DIAGNOSIS: Acute renal failure, requiring hemodialysis POSTOPERATIVE DIAGNOSIS: Acute renal failure, requiring hemodialysis PROCEDURE PERFORMED: Limited Ultrasound-guided LEFT internal jugular large-bore central line (Josh) placement. ANESTHESIA: 2 mL of 1% lidocaine plain. ESTIMATED BLOOD LOSS: less than 5 mL. SPECIMENS: None. COMPLICATIONS: None. INDICATIONS FOR PROCEDURE: The patient is in need of large bore IV access for hemodialysis due to acute renal failure DESCRIPTION OF PROCEDURE IN DETAIL: The patient was lying in the Trendelenburg position with head turned 30 degrees away from the insertion site. The skin was thoroughly sponged with chlorhexidine and allowed to dry. All persons involved were shielded with hair nets, face masks and sterile gowns. With sterile-gloved hands the LEFT neck area was draped with the large disposable sterile field provided in the pre-manufactured kit. The skin and subcutaneous tissues superficial to the LEFT internal jugular vein were anesthetized with 2 mL of 1% lidocaine. The LEFT internal jugular vein was identified on ultrasound from the angle of the mandible down into the supraclavicular fossa using the linear ultrasound probe in the transverse orientation. The carotid artery was identified and avoided utilizing color-flow. The internal jugular vein was then placed in the center of the ultrasound field and compressed for patency. A movement artifact was identified as the needle was advanced through the skin and advanced toward the vessel. A real time hyperechoic signal revealed visualization of vascular needle entry into the lumen as blood was noted to flashback in the syringe. The needle was then held in place while the guide wire was advanced. The needle was then removed. Direct visualization of guide wire location within the vein was noted on ultrasound indicating proper placement and was documented in the electronic medical record chart. A skin dilator was advanced over the guidewire and removed. A larger bore skin dilator was advanced over the guidewire and removed. The double-lumen Josh catheter was then advanced over the guide wire into proper position. The guide wire was removed and discarded. The ports were aspirated which showed good blood return and then carefully flushed with normal saline. Heparin 1.2 mL were placed into each port. The catheter was stabilized and sutured to the skin with 2-0 Prolene at 2 anchor points. A sterile bio-patch and dressing was placed over the catheter, including the insertion site. The patient tolerated the procedure well. A chest x-ray was ordered for position c onfirmation. I reviewed the image immediately after it was taken at bedside. Post-procedure chest x-ray demonstrates the Josh catheter line in the superior vena and no evidence of any pneumothorax. An image print out of the guidewire within the lumen of the LEFT internal jugular vein accompanies the chart. TOM RIVAS MD May 06, 2024 20:00
[2024-05-06] MEDS: HEPARIN SODIUM (PORCINE) 5000 UNITS/ML 1ML VIAL IV ONE (20:28)
--- NOTE | 2024-05-06 20:36 | DVHPNRES ---
Progress Note Date Seen: May 06, 2024 Resident Creating Document: GARRY MCCALL RESIDENT Has the PT tested + for MRSA If YES, has PT been informed?: No Medical Necessity Reason Pt with a Central, PICC or Fol: Yes The following are medically ne: Chavez Catheter Subjective Review of Systems Saw the patient at the [facility] overall looks sick, off of BiPAP blood gas satisfactory Objective vital signs Vital Sign Date Time Temp Pulse Resp B/P (MAP) Pulse Ox O2 Delivery O2 Flow Rate FiO2 05/06/24 19:52 98.0 98.0 05/06/24 19:22 124 18 05/06/24 19:16 96 Oxymizer 6 N/A Total Intake and Output 05/05/24 05/05/24 05/06/24 15:00 23:00 07:00 Intake Total 260.48 ml 256.28 ml 221.28 ml Output Total 50 ml 0 ml Balance 260.48 ml 206.28 ml 221.28 ml medications Current Medications Medications Dose Ordered Sig/Leonor Route Start Time Stop Time Status Last Admin Dose Admin Acetaminophen 650 mg Q6HP PRN PO 05/02/24 01:45 Morphine Sulfate 2 mg Q4HPRN PRN IV 05/02/24 01:45 05/06/24 13:42 2 MG Nitroglycerin 0.4 mg Q5MINP PRN SL 05/02/24 01:45 Guaifenesin 200 mg Q4HP PRN GT 05/02/24 08:30 Diagnostic Test (Pha) 1 strip Q6HR 05/02/24 18:00 05/06/24 11:43 1 STRIP Insulin Human Regular Q6HR SC 05/02/24 18:00 05/06/24 11:49 4 UNITS Dextrose 50 ml UD PRN IV 05/02/24 13:00 Ipratropium [place] 0.5 mg Q6HWA NEB 05/02/24 18:00 05/06/24 19:16 0.5 MG Acetylcysteine 100 mg Q6HR NEB 05/02/24 18:00 05/06/24 19:16 100 MG Nystatin 1 applic BID TOP 05/02/24 22:00 05/05/24 22:52 1 APPLIC Levalbuterol HCl 1.25 mg Q6HPRN PRN NEB 05/03/24 14:15 05/06/24 06:08 1.25 MG Erythromycin 1 applic Q4HR OP 05/04/24 02:00 05/06/24 17:06 1 APPLIC Furosemide 60 mg DAILY IV 05/04/24 10:00 05/05/24 09:41 60 MG Enteral Nutritional Formula 27.5 gm BID PO 05/05/24 22:00 Heparin Sodium/ Dextrose 250 ml @ 11 mls/hr [id number] IV 05/05/24 12:15 05/06/24 13:30 11 MLS/HR Meropenem 50 ml @ 17 mls/hr Q12HR@0800,2000 IV 05/05/24 20:00 05/06/24 20:14 17 MLS/HR Methylprednisolone Sodium Succinate 40 mg BID IV 05/06/24 22:00 Examination Constitutional: Yes: Weakness, overall looks extremely sick Eyes: No: Pain, Vision change, Conjunctivae inflammation, Eyelid inflammation, Other, Redness ENT: No: Ear pain, Ear discharge, Nose pain, Nose discharge, Nose congestion, Mouth pain, Mouth swelling, Throat pain, Throat swelling, Other Respiratory: Shortness of breath, Wheezing, more air entry on the left side, still has bilateral lower lobe dependent area of diminished breathing. Cardiovascular: Edema Bilateral lower leg. , worsened Gastrointestinal: No: Nausea, Vomiting, Abdominal Pain, Diarrhea, Constipation, Melena, Hematochezia, Other Genitourinary: No Dysuria, No Frequency, No Incontinence, No Hematuria, No Retention, No Other patient on Chavez's catheter for close input output minimal output. Musculoskeletal: No: other, neck pain, shoulder pain, arm pain, back pain, hand pain, leg pain, foot pain Skin: Lesions, Bruising Neurological: No: Weakness, Numbness, Incoordination, Change in speech, Confusion, Seizures, Other Patient is alert, arousable but obtunded, NPO, head end elevated at 45 degree laboratory and microbiology Laboratory Tests 05/06/24 15:15 05/06/24 03:17 Test 05/06/24 15:15 Range/Units Serum Glucose 196 H 74-106 mg/dL Microbiology Date/Time Source Procedure Growth Status 05/05/24 05:10 Nose MRSA Screen - Final Complete 05/02/24 13:10 Pleural Fluid Gram Stain - Final Resulted 05/02/24 13:10 Pleural Fluid Body Fluid Culture - Preliminary Resulted 05/02/24 08:07 Blood Blood Culture - Final Staphylococcus lugdunensis Complete Labs and/or images reviewed: Labs reviewed by me, Image(s) reviewed by me Problem List/Assessment/Plan Problem List/Assessment/Plan ICU Course: Nirav Junior, a 78-year-old male with a history of type 2 diabetes, hypertension, atrial fibrillation, and COPD on home oxygen, presented to the ED with bilateral lower leg weakness and ongoing shortness of breath. He reports his legs giving out when trying to stand, which prompted his visit. He denies fever, cold, nausea, vomiting, diaphoresis, and other acute symptoms. He lives with a client technical support associate and denies smoking, alcohol, and drug abuse. He has no known allergies and his home medications were not specified. Since yesterday patient had moderate fluid removal from the left lung with the help of IR team, patient has started having shortness of breath, acute decompensation and hemodynamically instability needing BiPAP support. patient is upgraded to ICU status/Catherine for close monitoring. Hospitalization day: day 5 A. Neurology: # metabolic and/or toxic encephalopathy: Uremia, CO2 retention, multifactorial, electrolyte dysfunction. Alert but limited orientation. Keep the patient NPO aspiration precautions. # hyperactive delirium, previously: In-hospital patient has hyperactive delirium with agitation, please continue supportive care, frequent reorientation, sleep-wake cycle. If possible please move with the patient to the room as soon as possible. DC ed benzodiazepine to re-evaluate the baseline. B. Cardiology: # New onset of AFib RVR: Chads Vasc score of 7, high-risk of thromboembolism. Noted on EKG and telemetry, started the patient on amiodarone drip>> change to 200 b.i.d. of amiodarone to restrict fluid, as per RACE II trial we will try to keep the heart rate below 110. Partially heart rate high due to underlying sepsis. Cardiology consulted looking for input. tachycardia could be compensatory mechanism for reduced stroke volume to maintain cardiac output, we will avoid negative ionotropic drugs: BB/CCB's # possible pericardial effusion, no tamponade: Pending echo/TTE confirmed likely due to fluid overload state # essential hypertension: [place] blood pressure 130/ 80 or below. We will hold antihypertensives for now in the setting of sepsis/ Hydrodynamic instability # acute heart failure with reduced ejection fraction 20%, cause unknown, cardiology consulted looking for input, not a candidate for GDM T, but started the patient on IV Lasix 60 daily. At this point patient is fluid overloaded with acute renal failure likely will benefit from hemodialysis/reduction of additional fluid. C. Respiratory: # past 40 pack-year smoking history, quit less than 15 years back. # Known COPD: Questionable noncompliance, continue levalbuterol and ipratropium therapeutic breathing treatment, influenza and COVID negative, continue IV methylprednisolone b.i.d. # Respiratory deconditioning secondary due to previous COVID pneumonia # acute on chronic hypoxic /hypercapnic respiratory failure : baseline oxygen 4-5 L [id number], We will try to keep the SpO2 between 88-92 %, presently on 6 L of nasal cannula oxygen> hopefully dialysis we will help improving oxygenation # Left-sided massive pleural effusion: Status post removal of 3800+ mL of pleural fluid by IR. Samples sent, check for serum LDH, protein, light's criteria. Follow the result. # Respiratory acidosis, improving with BiPAP, as needed anxiety medications. # acute Gram-positive Gram-negative bacterial pneumonia: Check MRSA, check sputum culture, keep the patient on broad-spectrum antibiotics with covering both Gram-negative and Gram-positive. # Likely, re-expansion pulmonary edema: Likely due to removal of moderate amount of pleural fluid . Continue reduced to IV methylprednisolone. Continue levalbuterol and ipratropium. # transudative bilateral pleural effusion: Gram-negative, likely due to heart failure: Status post left-sided tap. D. Gastrointestinal: # GERD/ GI prophylaxis:ppi prophylaxis to continue # Mild hyperbilirubinemia: Abdominal finding unremarkable. Follow up CMP daily. Abdominal examination unremarkable # mild transaminitis: Pending hepatitis workup. Likely hepatic congestion related. E. Genitourinary: no active issues noted so far, on both Chavez's catheter low urine output F. Infectious Disease: # intertrigo, continue nystatin powder # sepsis: Likely due to community-acquired pneumonia, continue IV vancomycin and meropenem for now, pancultures pending follow closely. DC vancomycin as vancomycin trough elevated In the background of worsening renal failure. # blood culture 1/2 present with Staphylococcus lugdenesis likely contaminant, MRSA negative, G. Hematology & Oncology: # mild thrombocytopenia: Close monitoring of H&H, platelets, high-risk of thromboembolism on IV heparin drip. Follow up platelets. patient continues to have thrombocytopenia. If platelets drop then patient needs holding of heparin drip. H. Nephrology: Patient is on Chavez's catheter since 04/20 13 # no known CKD # likely acute tubular necrosis: contrast nephropathy And vancomycin nephrotoxicity likely contributing. Nephrology on board, on IV Lasix 65, Josh catheter is placed, likely the patient will need initiation of hemodialysis. Avoid further nephrotoxic # hyperkalemia: Status post IV Lasix, dextrose and insulin. 5.3, check the patient's repeat CMP tomorrow morning. Monitor closely with patient's other electrolytes. Likely we will need hemodialysis to correct the electrolyte disbalance. Target potassium above 4 and magnesium above 2. I. Endocrine: # ?previous history of diabetes: HbA1c 5.5 no treatment needed at this point: Concord BG in-hospital 140-180, BG elevated likely due to IV steroids /cautious correction of BG with insulin given renal failure J. MSK: # peripheral arterial disease: Bilateral lower limb Extremely poor vasculature, vascular surgery consulted. Podiatry evaluated the patient, continue care with wound care and Medihoney. 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 K. Prophylaxis: PPI: Protonix IV daily DVT: SCDs /heparin drip high-risk of thromboembolism L. Lines & Drains (with insertion date): IV peripheral IV, since 05/01/2024 Right IJ venous catheter with distal tip in the SVC Since 05/03/2024 Arterial line: Not needed at this point Josh catheter for hemodialysis: 05/06 M. Drips: amiodarone drip>> change to oral N. Disposition: Remains in [facility] Code status: Modified code status with DNI, ACLS and chest compression without defibrillation. Discussed with the patient and patient's caregiver, paperwork in file. Patient's immediate family is sister with whom the patient has spoke last time more than 2 years back, who will come from [place] to visit him the earliest possible on upcoming Sunday 05/07 The plan was discussed with the ICU attending Dr. Bradford. The patient care consists of total 87 minutes of critical care time excluding the procedures. Dictated by Garry Mccall MD with 3M MModal Fluency. Plan discussed with: Patient, Other My Orders My Orders Orders - GARRY MCCALL Procedure Category Date Status Time PTPTT LAB 05/07/24 Verified 04:00 Complete Blood Count LAB 05/07/24 Verified 04:00 Heparin Per Pharmacy [facility] 05/06/24 In Process Protocol 08:52 * Swallow Request ST 05/06/24 Transmitted 13:29 Potassium LAB 05/06/24 Logged 21:46 Dietary Evaluation Review Recommendations by RD: Dietary education by RD, Protein Supplementation Comments: 1) Initiate Omar @ 1 pk bid 2) Encourage good PO intake 3) Refer to outpatient RD/CDCES for weight management 4) Continue to monitor appetite, labs, and skin integrity Expected Outcomes/Goals: 1) appetite and labs to improve 2) wound to improve 3) f/u in 3-5 days Date of Service: May 06, 2024 Billing Provider: LEON BRADFORD MD Common Visit Codes: [id number] CARE 30-74 MIN, [id number] CARE-EACH +30MIN GARRY MCCALL May 06, 2024 20:36 LEON BRADFORD MD May 07, 2024 15:54
[2024-05-06] MEDS ORDERED: AMIODARONE HCL 200 MG TAB PO SCH (22:00)
[2024-05-06] MEDS: methylPREDNISolone SOD SUCC 40 MG/ML VL IV SCH (22:03)
--- NOTE | 2024-05-06 23:27 | DVH ---
CHEST RADIOGRAPH Indication: Daljit CATHETER PLACEMENT Technique: Single frontal view of the chest was obtained Comparison: XY CHEST PORTABLE on DOS: 05/06/24, XY CHEST XRAY 1 VIEW on DOS: 05/03/24, XY CHEST XRAY 1 VIEW on DOS: 05/02/24 Findings / IMPRESSION: IJ HD catheter with tip projecting near the cavoatrial junction. Low lung volumes with bilateral diff use patchy opacities which can be seen with severe pulmonary edema versus multifocal pneumonia versus ARDS. No pneumothorax.
[2024-05-06] MEDS: AMIODARONE 360mg/200mL PREMIX 200 ML IV SCH (23:55)
[2024-05-07] VITALS (95 sets, daily range): BP systolic 90–157; BP diastolic 50–101; PULSE 9–138; RESP 9–24; TEMP 97.1–98; O2SAT 78–100
[2024-05-07 05:23] LABS: Hemoglobin 12.1 g/dL (13.5-17.5); Mean Corpuscular Hemoglobin 31.6 pg (28.0-32.0); Mean Corpuscular Hgb Conc. 31.8 g/dL (32.0-36.0); Mean Corpuscular Volume 99.4 fL (80.0-100.0); Platelet Count (auto) 84 10^3/uL (140-450); Red Blood Cells 3.82 10^6/uL (4.5-5.90); Red Cell Distribution Width 18.8 % (11.8-14.3); White Blood Cell 17.2 10^3/uL (4.4-10.8)
[2024-05-07 05:35] LABS: Anion Gap 12 (5-15); Carbon Dioxide 31 mmol/L (20-31); Chloride 100 mmol/L (98-107); Sodium 143 mmol/L (136-145)
[2024-05-07 05:36] LABS: Calcium 8.8 mg/dL (8.7-10.4)
[2024-05-07 05:40] LABS: INR 1.35 (0.9-1.15); Prothrombin Time 13.9 sec (9.3-11.8)
[2024-05-07 05:41] LABS: BUN/Creatinine Ratio 20.4 (10.0-20.0)
[2024-05-07 05:55] LABS: Basophils % (manual) 0 (0.0-2.0); Blast Cells 0; Eosinophils % (manual) 0 (0-7); Metamyelocytes % 0; Promyelocytes % 0; Reactive Lymphocytes 0
[2024-05-07 06:04] LABS: Blood Urea Nitrogen 102 mg/dL (9-23); Glucose 212 mg/dL (74-106); Partial Thromboplastin Time 83.2 SEC (24.5-34.5); Potassium 5.3 mmol/L (3.5-5.1)
[2024-05-07] MEDS: DEXTROSE (50%) 50ML SYRG IV ONE (06:44)
[2024-05-07 06:46] LABS: Band Neutrophils % (manual) 4; Lymphocytes % (manual) 1 (10.0-50.0); Monocytes % (manual) 5 (0-12); Myelocytes % 1; Platelet Estimate Decreased
[2024-05-07] MEDS: FUROSEMIDE 20 MG/2 ML VIAL IV ONE (06:46)
[2024-05-07] MEDS: InsuLIN REG 1unit/0.01ml Soln (100units/ml) IV ONE (06:46)
[2024-05-07] MEDS: SODIUM BICARB 8.4% 50Meq/50ml SYR INJ IV ONE (06:47)
[2024-05-07] MEDS: HEPARIN DRIP/D5W 100UNITS/ML 250 ML IV SCH (07:00)
[2024-05-07] MEDS ORDERED: SODIUM CHL 0.9% 1000 ML BAG XX ONE (07:00)
[2024-05-07] MEDS: diphenhdrAMINE HCL 50 MG/1 ML VL IV ONE (11:18)
[2024-05-07] MEDS: PANTOPRAZOLE 40 MG/10 ML VIAL INJ IV SCH (11:26)
[2024-05-07 11:40] LABS: Urine Bacteria FEW /hpf (None Seen); Urine Blood 3+ /uL (Negative); Urine Clarity Turbid (Clear); Urine Color Orange (Yellow); Urine Protein, UAD 1+ (Negative); Urine Squamous Epithelial Cell FEW /hpf (<5); Urine Urobilinogen 3 mg/dL (Negative); Urine WBC 30 /HPF (0-3)
--- NOTE | 2024-05-07 14:05 | DVHPN2 ---
Progress Note Date Seen: May 07, 2024 Has the PT tested + for MRSA If YES, has PT been informed?: No Medical Necessity Reason Pt with a Central, PICC or Fol: Yes The following are medically ne: Chavez Catheter Subjective Other Systems: pt got HD and agitated on amio gtt Objective vital signs Vital Sign Date Time Temp Pulse Resp B/P (MAP) Pulse Ox O2 Delivery O2 Flow Rate FiO2 05/07/24 13:00 123 16 114/72 (86) 99 05/07/24 12:05 Oxymizer 6 N/A 05/07/24 12:00 97.1 97.1 Total Intake and Output 05/06/24 05/06/24 05/07/24 15:00 23:00 07:00 Intake Total 221.28 ml 221.28 ml 250.94 ml Output Total 15 ml 10 ml Balance 221.28 ml 206.28 ml 240.94 ml medications Current Medications Medications Dose Ordered Sig/Leonor Route Start Time Stop Time Status Last Admin Dose Admin Acetaminophen 650 mg Q6HP PRN PO 05/02/24 01:45 Morphine Sulfate 2 mg Q4HPRN PRN IV 05/02/24 01:45 05/06/24 22:09 2 MG Nitroglycerin 0.4 mg Q5MINP PRN SL 05/02/24 01:45 Guaifenesin 200 mg Q4HP PRN GT 05/02/24 08:30 Diagnostic Test (Pha) 1 strip Q6HR 05/02/24 18:00 05/07/24 12:00 1 STRIP Insulin Human Regular Q6HR SC 05/02/24 18:00 05/07/24 05:53 4 UNITS Dextrose 50 ml UD PRN IV 05/02/24 13:00 Nystatin 1 applic BID TOP 05/02/24 22:00 05/07/24 11:26 1 APPLIC Levalbuterol HCl 1.25 mg Q6HPRN PRN NEB 05/03/24 14:15 05/06/24 06:08 1.25 MG Erythromycin 1 applic Q4HR OP 05/04/24 02:00 05/07/24 10:00 1 APPLIC Furosemide 60 mg DAILY IV 05/04/24 10:00 05/05/24 09:41 60 MG Enteral Nutritional Formula 27.5 gm BID PO 05/05/24 22:00 Meropenem 50 ml @ 17 mls/hr Q12HR@0800,2000 IV 05/05/24 20:00 05/07/24 08:32 17 MLS/HR Methylprednisolone Sodium Succinate 40 mg BID IV 05/06/24 22:00 05/07/24 11:25 40 MG Ipratropium [place] 0.5 mg Q6HWA [facility] 05/06/24 18:00 05/07/24 12:05 0.5 MG Acetylcysteine 100 mg Q6HWA [facility] 05/06/24 18:00 05/07/24 12:05 100 MG Pantoprazole Sodium 40 mg DAILY IV 05/07/24 10:00 05/07/24 11:26 40 MG Heparin Sodium/ Dextrose 250 ml @ 9 mls/hr Q24H IV 05/07/24 06:15 Hold Examination: GENERAL:Abnormal, HEENT:Abnormal, LUNGS:Abnormal, CVS:Abnormal, ABDOMEN:Abnormal laboratory and microbiology Laboratory Tests 05/07/24 05:02 Test 05/07/24 05:02 Range/Units Serum Glucose 212 H 74-106 mg/dL Microbiology Date/Time Source Procedure Growth Status 05/05/24 05:10 Nose MRSA Screen - Final Complete 05/02/24 13:10 Pleural Fluid Gram Stain - Final Resulted 05/02/24 13:10 Pleural Fluid Body Fluid Culture - Preliminary Resulted 05/02/24 08:07 Blood Blood Culture - Final Staphylococcus lugdunensis Complete Problem List/Assessment/Plan Problem List/Assessment/Plan renal faliure agitation afib rvr edema r/o chf PAD venous disease of legs cont amio gtt dc heparin gtt for low PLTs rate not well controlled 2/2 to agitation s/ p HD may need bed sitter as well Plan discussed with: Patient Dietary Evaluation Review Recommendations by RD: Dietary education by RD, Protein Supplementation Comments: 1) Initiate Omar @ 1 pk bid 2) Encourage good PO intake 3) Refer to outpatient RD/[facility] for weight management 4) Continue to monitor appetite, labs, and skin integrity Expected Outcomes/Goals: 1) appetite and labs to improve 2) wound to improve 3) f/u in 3-5 days Date of Service: May 07, 2024 Billing Provider: ALYSSA PIERCE MD Common Visit Codes: NOT BILLABLE ALYSSA PIERCE MD May 07, 2024 14:05
[2024-05-07 16:27] LABS: Creatinine, Urine 96.62 mg/dL (30.0-125.0)
[2024-05-07] MEDS ORDERED: ACETYLCYSTEINE 10 %(100MG/ML) SOL 4ML NEB SCH (18:00)
--- NOTE | 2024-05-07 18:33 | DVHPN2 ---
Progress Note Date Seen: May 07, 2024 Has the PT tested + for MRSA If YES, has PT been informed?: No Medical Necessity Reason Pt with a Central, PICC or Fol: Yes The following are medically ne: Chavez Catheter Subjective Patient reports: Other (altered ) Review of Systems: Deferred Objective vital signs Vital Sign Date Time Temp Pulse Resp B/P (MAP) Pulse Ox O2 Delivery O2 Flow Rate FiO2 05/07/24 18:00 23 94 Oxymizer 6 N/A 05/07/24 18:00 126 05/07/24 17:08 152/96 (114) 05/07/24 16:00 97.3 97.3 Total Intake and Output 05/06/24 05/06/24 05/07/24 15:00 23:00 07:00 Intake Total 221.28 ml 221.28 ml 250.94 ml Output Total 15 ml 10 ml Balance 221.28 ml 206.28 ml 240.94 ml medications Current Medications Medications Dose Ordered Sig/Leonor Route Start Time Stop Time Status Last Admin Dose Admin Acetaminophen 650 mg Q6HP PRN PO 05/02/24 01:45 Morphine Sulfate 2 mg Q4HPRN PRN IV 05/02/24 01:45 05/06/24 22:09 2 MG Nitroglycerin 0.4 mg Q5MINP PRN SL 05/02/24 01:45 Guaifenesin 200 mg Q4HP PRN GT 05/02/24 08:30 Diagnostic Test (Pha) 1 strip Q6HR 05/02/24 18:00 05/07/24 17:22 1 STRIP Insulin Human Regular Q6HR SC 05/02/24 18:00 05/07/24 17:21 3 UNITS Dextrose 50 ml UD PRN IV 05/02/24 13:00 Nystatin 1 applic BID TOP 05/02/24 22:00 05/07/24 11:26 1 APPLIC Levalbuterol HCl 1.25 mg Q6HPRN PRN NEB 05/03/24 14:15 05/06/24 06:08 1.25 MG Erythromycin 1 applic Q4HR OP 05/04/24 02:00 05/07/24 14:00 1 APPLIC Furosemide 60 mg DAILY IV 05/04/24 10:00 05/07/24 15:57 60 MG Enteral Nutritional Formula 27.5 gm BID PO 05/05/24 22:00 Meropenem 50 ml @ 17 mls/hr Q12HR@0800,2000 IV 05/05/24 20:00 05/07/24 17:11 17 MLS/HR Methylprednisolone Sodium Succinate 40 mg BID IV 05/06/24 22:00 05/07/24 11:25 40 MG Ipratropium [place] 0.5 mg Q6HWA NEB 05/06/24 18:00 05/07/24 12:05 0.5 MG Acetylcysteine 100 mg Q6HWA NEB 05/06/24 18:00 05/07/24 12:05 100 MG Pantoprazole Sodium 40 mg DAILY IV 05/07/24 10:00 05/07/24 11:26 40 MG Examination: GENERAL:Abnormal, NEURO:Abnormal laboratory and microbiology Laboratory Tests 05/07/24 05:02 Test 05/07/24 05:02 Range/Units Serum Glucose 212 H 74-106 mg/dL Microbiology Date/Time Source Procedure Growth Status 05/05/24 05:10 Nose MRSA Screen - Final Complete 05/02/24 13:10 Pleural Fluid Gram Stain - Final Resulted 05/02/24 13:10 Pleural Fluid Body Fluid Culture - Preliminary Resulted 05/02/24 08:07 Blood Blood Culture - Final Staphylococcus lugdunensis Complete Problem List/Assessment/Plan Problem List/Assessment/Plan Acute kidney injury suspect acute tubular necrosis in the setting of contrast exposure and vancomycin nephrotoxicity Patient also has superimposed hemodynamic states in the setting of low ejection fraction and persistent tachycardia. No previous CKD Hypercarbic respiratory insufficiency COPD Acidosis Atrial fibrillation with rapid ventricular response sepsis due to staph bacteremia recs nallely cath HD today monitor for renal recovery chairtime with DCD Plan discussed with: Other Dietary Evaluation Review Recommendations by RD: Dietary education by RD, Protein Supplementation Comments: 1) Initiate Omar @ 1 pk bid 2) Encourage good PO intake 3) Refer to outpatient RD/[facility] for weight management 4) Continue to monitor appetite, labs, and skin integrity Expected Outcomes/Goals: 1) appetite and labs to improve 2) wound to improve 3) f/u in 3-5 days BLANCO FELICIANO MD May 07, 2024 18:33
--- NOTE | 2024-05-07 21:50 | DVHPNRES ---
Progress Note Date Seen: May 07, 2024 Resident Creating Document: GARRY MCCALL RESIDENT Has the PT tested + for MRSA If YES, has PT been informed?: No Medical Necessity Reason Pt with a Central, PICC or Fol: Yes The following are medically ne: Chavez Catheter Subjective Review of Systems Saw the patient at the [facility] overall looks less sick post dialysis, off of BiPAP blood gas satisfactory, cxr improved. Objective vital signs Vital Sign Date Time Temp Pulse Resp B/P (MAP) Pulse Ox O2 Delivery O2 Flow Rate FiO2 05/07/24 18:56 123 23 94 05/07/24 18:44 Oxymizer 6 N/A 05/07/24 18:03 115/71 (86) 05/07/24 16:00 97.3 97.3 Total Intake and Output 05/06/24 05/06/24 05/07/24 15:00 23:00 07:00 Intake Total 221.28 ml 221.28 ml 250.94 ml Output Total 15 ml 10 ml Balance 221.28 ml 206.28 ml 240.94 ml medications Current Medications Medications Dose Ordered Sig/Leonor Route Start Time Stop Time Status Last Admin Dose Admin Acetaminophen 650 mg Q6HP PRN PO 05/02/24 01:45 Morphine Sulfate 2 mg Q4HPRN PRN IV 05/02/24 01:45 05/06/24 22:09 2 MG Nitroglycerin 0.4 mg Q5MINP PRN SL 05/02/24 01:45 Guaifenesin 200 mg Q4HP PRN GT 05/02/24 08:30 Diagnostic Test (Pha) 1 strip Q6HR 05/02/24 18:00 05/07/24 17:22 1 STRIP Insulin Human Regular Q6HR SC 05/02/24 18:00 05/07/24 17:21 3 UNITS Dextrose 50 ml UD PRN IV 05/02/24 13:00 Nystatin 1 applic BID TOP 05/02/24 22:00 05/07/24 21:36 1 APPLIC Levalbuterol HCl 1.25 mg Q6HPRN PRN NEB 05/03/24 14:15 05/07/24 18:44 1.25 MG Erythromycin 1 applic Q4HR OP 05/04/24 02:00 05/07/24 21:35 1 APPLIC Furosemide 60 mg DAILY IV 05/04/24 10:00 2/18/25 15:57 60 MG Enteral Nutritional Formula 27.5 gm BID PO 05/05/24 22:00 Methylprednisolone Sodium Succinate 40 mg BID IV 05/06/24 22:00 05/07/24 21:34 40 MG Ipratropium [place] 0.5 mg Q6HWA [facility] 05/06/24 18:00 05/07/24 18:44 0.5 MG Acetylcysteine 100 mg Q6HWA [facility] 05/06/24 18:00 05/07/24 18:44 100 MG Pantoprazole Sodium 40 mg DAILY IV 05/07/24 10:00 05/07/24 11:26 40 MG Meropenem 50 ml @ 17 mls/hr Q12H IV 05/08/24 06:00 Examination Constitutional: Yes: Weakness, overall looks extremely sick Eyes: No: Pain, Vision change, Conjunctivae inflammation, Eyelid inflammation, Other, Redness ENT: No: Ear pain, Ear discharge, Nose pain, Nose discharge, Nose congestion, Mouth pain, Mouth swelling, Throat pain, Throat swelling, Other Respiratory: Shortness of breath, Wheezing, more air entry on the left side, still has bilateral lower lobe dependent area of diminished breathing. Cardiovascular: Edema Bilateral lower leg. , worsened Gastrointestinal: No: Nausea, Vomiting, Abdominal Pain, Diarrhea, Constipation, Melena, Hematochezia, Other Genitourinary: No Dysuria, No Frequency, No Incontinence, No Hematuria, No Retention, No Other patient on Chavez's catheter for close input output minimal output. Musculoskeletal: No: other, neck pain, shoulder pain, arm pain, back pain, hand pain, leg pain, foot pain Skin: Lesions, Bruising Neurological: No: Weakness, Numbness, Incoordination, Change in speech, Confusion, Seizures, Other Patient is alert, arousable but obtunded, NPO, head end elevated at 45 degree laboratory and microbiology Laboratory Tests 05/07/24 05:02 Test 05/07/24 05:02 Range/Units Serum Glucose 212 H 74-106 mg/dL Microbiology Date/Time Source Procedure Growth Status 05/05/24 05:10 Nose MRSA Screen - Final Complete 05/02/24 13:10 Pleural Fluid Gram Stain - Final Resulted 05/02/24 13:10 Pleural Fluid Body Fluid Culture - Preliminary Resulted 05/02/24 08:07 Blood Blood Culture - Final Staphylococcus lugdunensis Complete Labs and/or images reviewed: Labs reviewed by me, Image(s) reviewed by me Problem List/Assessment/Plan Problem List/Assessment/Plan ICU Course: Nirav Junior, a 78-year-old male with a history of type 2 diabetes, hypertension, atrial fibrillation, and COPD on home oxygen, presented to the ED with bilateral lower leg weakness and ongoing shortness of breath. He reports his legs giving out when trying to stand, which prompted his visit. He denies fever, cold, nausea, vomiting, diaphoresis, and other acute symptoms. He lives with a equipment superintendent and denies smoking, alcohol, and drug abuse. He has no known allergies and his home medications were not specified. Since yesterday patient had moderate fluid removal from the left lung with the help of IR team, patient has started having shortness of breath, acute decompensation and hemodynamically instability needing BiPAP support: patient remains in [facility] for close monitoring. Hospitalization day: 6 A. Neurology: # metabolic and/or toxic encephalopathy: Uremia, CO2 retention, multifactorial, electrolyte dysfunction. Alert but limited orientation. Keep the patient NPO aspiration precautions. Aspiration precautions, improved after initiation of dialysis. # hyperactive delirium, previously: In-hospital patient has hyperactive delirium with agitation, please continue supportive care, frequent reorientation, sleep-wake cycle. Please avoid sitters. Continue delirium precautions, frequent reorientations. B. Cardiology: # New onset of AFib RVR: Chads Vasc score of 7, high-risk of thromboembolism. Noted on EKG and telemetry, started the patient on amiodarone drip>> change to 200 b.i.d. of amiodarone to restrict fluid, as per RACE II trial we will try to keep the heart rate below 110. Partially heart rate high due to underlying sepsis. Cardiology consulted looking for input. tachycardia could be compensatory mechanism for reduced stroke volume to maintain cardiac output, we will avoid negative ionotropic drugs: BB/CCB's # possible pericardial effusion, no tamponade: Pending echo/TTE confirmed likely due to fluid overload state # essential hypertension: [place] blood pressure 130/ 80 or below. We will hold antihypertensives for now in the setting of sepsis/ Hydrodynamic instability # acute heart failure with reduced ejection fraction 20%, cause unknown, cardiology consulted looking for input, not a candidate for GDM T, but started the patient on IV Lasix 60 daily. At this point patient is fluid overloaded with acute renal failure likely will benefit from hemodialysis/reduction of additional fluid. C. Respiratory: # past 40 pack-year smoking history, quit less than 15 years back. # Known COPD: Questionable noncompliance, continue levalbuterol and ipratropium therapeutic breathing treatment, influenza and COVID negative, continue IV methylprednisolone b.i.d. repeat CXR tomorrow. # Respiratory deconditioning secondary due to previous COVID pneumonia # acute on chronic hypoxic /hypercapnic respiratory failure : baseline oxygen 4-5 L [id number], We will try to keep the SpO2 between 88-92 %, presently on 6 L of nasal cannula oxygen> hopefully dialysis we will help improving oxygenation # Left-sided massive pleural effusion: Status post removal of 3800+ mL of pleural fluid by IR. Samples sent, check for serum LDH, protein, light's criteria. Follow the result. # Respiratory acidosis, improving with BiPAP, as needed anxiety medications. P atient back to improved state of alertness, recheck blood gas tomorrow a.m.. # acute Gram-positive Gram-negative bacterial pneumonia: Check MRSA, check sputum culture, keep the patient on broad-spectrum antibiotics with covering both Gram-negative and Gram-positive. # Likely, re-expansion pulmonary edema: Likely due to removal of moderate amount of pleural fluid . Continue reduced to IV methylprednisolone. Continue levalbuterol and ipratropium. # transudative bilateral pleural effusion: Gram-negative, likely due to heart failure: Status post left-sided tap. D. Gastrointestinal: # GERD/ GI prophylaxis:ppi prophylaxis to continue # Mild hyperbilirubinemia: Abdominal finding unremarkable. Follow up CMP daily. Abdominal examination unremarkable # mild transaminitis: Pending hepatitis workup. Likely hepatic congestion related. E. Genitourinary: no active issues noted so far, on both Chavez's catheter low urine output F. Infectious Disease: # intertrigo, continue nystatin powder # sepsis: Likely due to community-acquired pneumonia, continue IV vancomycin and meropenem for now, pancultures pending follow closely. DC vancomycin as vancomycin trough elevated In the background of worsening renal failure. # blood culture 1/2 present with Staphylococcus lugdenesis likely contaminant, MRSA negative, G. Hematology & Oncology: # mild thrombocytopenia: Close monitoring of H&H, platelets, high-risk of thromboembolism on IV heparin drip. Follow up platelets. patient continues to have thrombocytopenia. If platelets drop then patient needs holding of heparin drip. H. Nephrology: Patient is on Chavez's catheter since 04/20 13 # no known CKD # likely acute tubular necrosis: contrast nephropathy And vancomycin nephrotoxicity likely contributing. Nephrology on board, on IV Lasix 65, Josh catheter is placed, likely the patient will need initiation of hemodialysis. Avoid further nephrotoxic # hyperkalemia: Status post IV Lasix, dextrose and insulin. 5.3, check the patient's repeat CMP tomorrow morning. Monitor closely with patient's other electrolytes. Likely we will need hemodialysis to correct the electrolyte disbalance. Target potassium above 4 and magnesium above 2. I. Endocrine: # ?previous history of diabetes: HbA1c 5.5 no treatment needed at this point: [place] BG in-hospital 140-180, BG elevated likely due to IV steroids /cautious correction of BG with insulin given renal failure J. MSK: # peripheral arterial disease: Bilateral lower limb Extremely poor vasculature, vascular surgery consulted. Podiatry evaluated the patient, continue care with wound care and [place]. 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 K. Prophylaxis: PPI: Protonix IV daily DVT: SCDs /heparin drip high-risk of thromboembolism L. Lines & Drains (with insertion date): IV peripheral IV, since 05/01/2024 Right IJ venous catheter with distal tip in the SVC Since 05/03/2024 Arterial line: Not needed at this point Josh catheter for hemodialysis: 05/06 New midline 05/07 M. Drips: amiodarone drip>> change to oral to limit fluid intake N. Disposition: Remains in [facility] Code status: Modified code status with DNI, ACLS and chest compression without defibrillation. Discussed with the patient and patient's caregiver, paperwork in file. Patient's immediate family is sister with whom the patient has spoke last time more than 2 years back, who will come from [place] to visit him the earliest possible on upcoming Sunday 05/07. Still waiting for next of kin sister to have further discussion of goals of care. Early tomorrow we will reach out to patient's roommate for further information. The plan was discussed with the ICU attending Dr. Bradford. The patient care consists of total 67 minutes of critical care time excluding the procedures. Dictated by Garry Mccall MD with 3M MModal Fluency. Plan discussed with: Patient, Other My Orders My Orders Orders - GARRY MCCALL Procedure Category Date Status Time Pantoprazole PHA 05/07/24 In Process (Protonix) 10:00 Communication Order ORDERS 05/07/24 Transmitted 12:44 Npo (Nothing By DIET 05/07/24 Transmitted Mouth) Diet Dinner Sitter 1:1 ORDERS 05/07/24 Transmitted 16:12 Meropenem 500mg Ivpb PHA 05/08/24 In Process (Merrem 500mg/Ns) 06:00 Chest Xray 1 View XY 05/08/24 Logged 04:00 Dietary Evaluation Review Recommendations by RD: Dietary education by RD, Protein Supplementation Comments: 1) Initiate Omar @ 1 pk bid 2) Encourage good PO intake 3) Refer to outpatient RD/[facility] for weight management 4) Continue to monitor appetite, labs, and skin integrity Expected Outcomes/Goals: 1) appetite and labs to improve 2) wound to improve 3) f/u in 3-5 days Date of Service: May 07, 2024 Billing Provider: LEON BRADFORD MD Common Visit Codes: [id number] CARE 30-74 MIN GARRY MCCALL May 07, 2024 21:50 LEON BRADFORD MD May 08, 2024 15:56
[2024-05-08] VITALS (62 sets, daily range): BP systolic 80–141; BP diastolic 44–101; PULSE 78–130; RESP 11–26; TEMP 97–97.9; O2SAT 85–100
--- NOTE | 2024-05-08 05:15 | DVH ---
EXAM: XR Chest, 1 View CLINICAL INDICATION: interval changes. TECHNIQUE: Frontal view of the chest. COMPARISON: XY CHEST PORTABLE on DOS: 05/06/24, XY CHEST PORTABLE on DOS: 05/06/24, XY CHEST XRAY 1 V IEW on DOS: 05/03/24, XY CHEST XRAY 1 VIEW on DOS: 05/02/24, XY CHEST PORTABLE on DOS: 05/02/24 FINDINGS: LUNGS AND PLEURAL SPACES: See below. HEART: Cardiomegaly with pulmonary congestion and edema. Superimposed pneumonia cannot be excluded. MEDIASTINUM: Unremarkable. Normal mediastinal contour. BONES/JOINTS: Unremarkable. No acute fracture. TUBES, LINES AND DEVICES: Left internal jugular central venous catheter tip in the superior vena ca va. OTHER FINDINGS: IMPRESSION: Cardiomegaly with pulmonary congestion and edema. Superimposed pneumonia cannot be excluded.
[2024-05-08] MEDS: MEROPENEM 500MG IVPB 50 ML IV SCH (06:13)
--- NOTE | 2024-05-08 07:43 | DVHPNRES ---
Progress Note Date Seen: May 08, 2024 Resident Creating Document: GARRY MCCALL RESIDENT Has the PT tested + for MRSA If YES, has PT been informed?: No Medical Necessity Reason Pt with a Central, PICC or Fol: Yes The following are medically ne: Chavez Catheter Objective vital signs Vital Sign Date Time Temp Pulse Resp B/P (MAP) Pulse Ox O2 Delivery O2 Flow Rate FiO2 05/08/24 07:00 121 19 136/73 (94) 85 05/08/24 06:30 Oxymizer 6.0 05/08/24 06:30 N/A 05/08/24 04:00 97.9 97.9 Total Intake and Output 05/07/24 05/07/24 05/08/24 15:00 23:00 07:00 Intake Total 160.28 ml 183.28 ml 145.28 ml Output Total 0 ml 3 ml Balance 160.28 ml 183.28 ml 142.28 ml medications Current Medications Medications Dose Ordered Sig/Leonor Route Start Time Stop Time Status Last Admin Dose Admin Acetaminophen 650 mg Q6HP PRN PO 05/02/24 01:45 Morphine Sulfate 2 mg Q4HPRN PRN IV 05/02/24 01:45 05/07/24 22:20 2 MG Nitroglycerin 0.4 mg Q5MINP PRN SL 05/02/24 01:45 Guaifenesin 200 mg Q4HP PRN GT 05/02/24 08:30 Diagnostic Test (Pha) 1 strip Q6HR 05/02/24 18:00 05/08/24 06:10 1 STRIP Insulin Human Regular Q6HR SC 05/02/24 18:00 05/08/24 06:11 3 UNITS Dextrose 50 ml UD PRN IV 05/02/24 13:00 Nystatin 1 applic BID TOP 05/02/24 22:00 05/07/24 21:36 1 APPLIC Levalbuterol HCl 1.25 mg Q6HPRN PRN NEB 05/03/24 14:15 05/08/24 06:30 1.25 MG Erythromycin 1 applic Q4HR OP 05/04/24 02:00 05/08/24 06:11 1 APPLIC Furosemide 60 mg DAILY IV 05/04/24 10:00 05/07/24 15:57 60 MG Enteral Nutritional Formula 27.5 gm BID PO 05/05/24 22:00 Methylprednisolone Sodium Succinate 40 mg BID IV 05/06/24 22:00 05/07/24 21:34 40 MG Ipratropium [place] 0.5 mg Q6HWA [facility] 05/06/24 18:00 05/08/24 06:30 0.5 MG Acetylcysteine 100 mg Q6HWA [facility] 05/06/24 18:00 05/08/24 06:30 100 MG Pantoprazole Sodium 40 mg DAILY IV 05/07/24 10:00 05/07/24 11:26 40 MG Meropenem 50 ml @ 17 mls/hr Q12H IV 05/08/24 06:00 05/08/24 06:13 17 MLS/HR Examination Constitutional: Yes: Weakness, overall looks Much better than last weekend. Eyes: No: Pain, Vision change, Conjunctivae inflammation, Eyelid inflammation, Other, Redness ENT: No: Ear pain, Ear discharge, Nose pain, Nose discharge, Nose congestion, Mouth pain, Mouth swelling, Throat pain, Throat swelling, Other Respiratory: Shortness of breath, Wheezing, more air entry on the left side, still has bilateral lower lobe dependent area of diminished breathing. Cardiovascular: Edema Bilateral lower leg. , worsened Gastrointestinal: No: Nausea, Vomiting, Abdominal Pain, Diarrhea, Constipation, Melena, Hematochezia, Other Genitourinary: No Dysuria, No Frequency, No Incontinence, No Hematuria, No Retention, No Other patient on Chavez's catheter for close input output minimal output. Musculoskeletal: No: other, neck pain, shoulder pain, arm pain, back pain, hand pain, leg pain, foot pain Skin: Lesions, Bruising Neurological: Alert awake, conversant, interactive. Mildly agitated. No: Weakness, Numbness, Incoordination, Change in speech, Confusion, Seizures, Other Patient is alert, arousable but obtunded, NPO, head end elevated at 45 degree laboratory and microbiology Test 05/08/24 05:10 Range/Units Serum Glucose Pending Microbiology Date/Time Source Procedure Growth Status 05/05/24 05:10 Nose MRSA Screen - Final Complete 05/02/24 13:10 Pleural Fluid Gram Stain - Final Resulted 05/02/24 13:10 Pleural Fluid Body Fluid Culture - Preliminary Resulted 05/02/24 08:07 Blood Blood Culture - Final Staphylococcus lugdunensis Complete Labs and/or images reviewed: Labs reviewed by me, Image(s) reviewed by me Problem List/Assessment/Plan Problem List/Assessment/Plan ICU Course: Nirav Junior, a 78-year-old male with a history of type 2 diabetes, hypertension, atrial fibrillation, and COPD on home oxygen, presented to the ED with bilateral lower leg weakness and ongoing shortness of breath. He reports his legs giving out when trying to stand, which prompted his visit. He denies fever, cold, nausea, vomiting, diaphoresis, and other acute symptoms. He lives with a medical clerk and denies smoking, alcohol, and drug abuse. He has no known allergies and his home medications were not specified. Since yesterday patient had moderate fluid removal from the left lung with the help of IR team, patient has started having shortness of breath, acute decompensation and hemodynamically instability needing BiPAP support: patient remains in [facility] for close monitoring. Hospitalization day: 7 A. Neurology: # metabolic and/or toxic encephalopathy: Uremia, CO2 retention, multifactorial, electrolyte dysfunction. Alert but limited orientation. Continues to improve after dialysis, Patient passed swallow eval test, continue fall and aspiration precautions. # hyperactive delirium, previously: In-hospital patient has hyperactive delirium with agitation, please continue supportive care, frequent reorientation, sleep-wake cycle. We will downgrade to telemetry floor with a sitter support. Continue delirium precautions, frequent reorientations. B. Cardiology: # New onset of AFib RVR: Chads Vasc score of 7, high-risk of thromboembolism. Noted on EKG and telemetry, started the patient on amiodarone drip>> change to 200 b.i.d. of amiodarone to restrict fluid, as per RACE II trial we will try to keep the heart rate below 110. Partially heart rate high due to underlying sepsis. Cardiology consulted looking for input. tachycardia could be compensatory mechanism for reduced stroke volume to maintain cardiac output, we will avoid negative ionotropic drugs: BB/CCB's # possible pericardial effusion, no tamponade: Pending echo/TTE confirmed likely due to fluid overload state # essential hypertension: [place] blood pressure 130/ 80 or below. We will hold antihypertensives for now in the setting of sepsis/ Hydrodynamic instability # acute heart failure with reduced ejection fraction 20%, cause unknown, cardiology consulted looking for input, not a candidate for GDM T, but started the patient on IV Lasix 60 daily. At this point patient is fluid overloaded with acute renal failure likely will benefit from hemodialysis/reduction of additional fluid. C. Respiratory: # past 40 pack-year smoking history, quit less than 15 years back. # Known COPD: Questionable noncompliance, continue levalbuterol and ipratropium therapeutic breathing treatment, influenza and COVID negative, continue IV methylprednisolone b.i.d. repeat CXR today shows improvement, we will repeat CXR if major changes in respiratory status # Respiratory deconditioning secondary due to previous COVID pneumonia # acute on chronic hypoxic /hypercapnic respiratory failure : baseline oxygen 4-5 L [id number], We will try to keep the SpO2 between 88-92 %, presently on 6 L of nasal cannula oxygen> hopefully dialysis we will help improving oxygenation. Titrate as tolerated. # Left-sided massive pleural effusion: Status post removal of 3800+ mL of pleural fluid by IR. Samples sent, check for serum LDH, protein, light's criteria. Follow the result. # Respiratory acidosis, improving with BiPAP, as needed anxiety medications. Patient back to improved state of alertness, recheck blood gas tomorrow a.m.. # acute Gram-positive Gram-negative bacterial pneumonia: Check MRSA, check sputum culture, keep the patient on broad-spectrum antibiotics with covering both Gram-negative and Gram-positive. # Likely, re-expansion pulmonary edema: Likely due to removal of moderate amount of pleural fluid . Continue reduced to IV methylprednisolone. Continue levalbuterol and ipratropium. # transudative bilateral pleural effusion: Gram-negative, likely due to heart failure: Status post left-sided tap. Improving with dialysis # bilateral atelectasis: Continue Q 1 incentive spirometry D. Gastrointestinal: # GERD/ GI prophylaxis:ppi prophylaxis to continue # Mild hyperbilirubinemia: Abdominal finding unremarkable. Follow up CMP daily. Abdominal examination unremarkable # mild transaminitis: Pending hepatitis workup. Likely hepatic congestion related. E. Genitourinary: no active issues noted so far, on both Chavez's catheter low urine output F. Infectious Disease: # intertrigo, continue nystatin powder # sepsis: Likely due to community-acquired pneumonia, continue IV vancomycin and meropenem for now, pancultures pending follow closely. DC vancomycin as vancomycin trough elevated In the background of worsening renal failure. # blood culture 1/2 present with Staphylococcus lugdenesis likely contaminant, MRSA negative, # Worsening leukocytosis: Afebrile, we will remove foreign objects including the Chavez's catheter and we will reintroduce if needed. Urine culture sent. Continue meropenem. Vancomycin held because of the high trough. G. Hematology & Oncology: # mild thrombocytopenia> progressed to moderate: Close monitoring of H&H, platelets, high-risk of thromboembolism on IV heparin drip/held. Follow up platelets. patient continues to have thrombocytopenia. If platelets drop then patient needs holding of heparin drip. # worsening thrombocytopenia likely due to HI T: Avoid all heparin and heparin containing medications H. Nephrology: Patient is on Chavez's catheter since 05/03, poor urine output, we will DC the Chavez's. # no known CKD # likely acute tubular necrosis: contrast nephropathy And vancomycin nephrotoxicity likely contributing. Nephrology on board, on IV Lasix 65, Josh catheter is placed, likely the patient will need initiation of hemodialysis. Avoid further nephrotoxic, hemodialysis day 2 to continues to tolerate. Approximately 2 L fluid out. # hyperkalemia: Status post IV Lasix, dextrose and insulin. 5.3, check the patient's repeat CMP tomorrow morning. Monitor closely with patient's other electrolytes. Likely we will need hemodialysis to correct the electrolyte disbalance. Target potassium above 4 and magnesium above 2. I. Endocrine: # ?previous history of diabetes: HbA1c 5.5 no treatment needed at this point: [place] BG in-hospital 140-180, BG elevated likely due to IV steroids /cautious correction of BG with insulin given renal failure. J. MSK: # peripheral arterial disease: Bilateral lower limb Extremely poor vasculature, vascular surgery consulted. Podiatry evaluated the patient, continue care with wound care and Medihoney. 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 K. Prophylaxis: PPI: Protonix IV daily DVT: SCDs /heparin drip high-risk of thromboembolism to hold because of worsening thrombocytopenia L. Lines & Drains (with insertion date): IV peripheral IV, since 05/01/2024 Right IJ venous catheter with distal tip in the SVC Since 05/03/2024 Arterial line: Not needed at this point Josh catheter for hemodialysis: 05/06 New midline 05/07 M. Drips: amiodarone drip>> change to oral to limit fluid intake N. Disposition: Remains in [facility] Code status: Modified code status with DNI, ACLS and chest compression without defibrillation. Discussed with the patient and patient's caregiver, paperwork in file, she provided the POA. Agreeable to take care of the patient at discharge. Discharge planning to continue with caregiver/roommate versus placement. Physical therapy consulted. The plan was discussed with the ICU attending Dr. Bradford. The patient care consists of total 69 minutes of critical care time excluding the procedures. dw poa plan of care Dictated by Garry Mccall MD with 3M MModal Fluency. Plan discussed with: Patient, Other (Roommate/POA) My Orders My Orders Orders - GARRY MCCALL Procedure Category Date Status Time Communication Order ORDERS 05/07/24 Transmitted 12:44 Npo (Nothing By DIET 05/07/24 Transmitted Mouth) Diet Dinner Sitter 1:1 ORDERS 05/07/24 Transmitted 16:12 Meropenem 500mg Ivpb PHA 05/08/24 In Process (Merrem 500mg/Ns) 06:00 Chest Xray 1 View XY 05/08/24 Resulted 04:00 Abg W/ Co-Ox RT 05/08/24 Logged 04:00 Dietary Evaluation Review Recommendations by RD: Dietary education by RD, Protein Supplementation Comments: 1) Initiate Omar @ 1 pk bid 2) Encourage good PO intake 3) Refer to outpatient RD/CD[facility] for weight management 4) Continue to monitor appetite, labs, and skin integrity Expected Outcomes/Goals: 1) appetite and labs to improve 2) wound to improve 3) f/u in 3-5 days Date of Service: May 08, 2024 Billing Provider: LEON BRADFORD MD Common Visit Codes: [id number] CARE 30-74 MIN GARRY MCCALL May 08, 2024 07:43 LOEN BRADFORD MD May 09, 2024 16:11
[2024-05-08] MEDS: HALOPERIDOL LACTATE 5 MG/ML INJ VIAL IM ONE (10:38)
[2024-05-08] MEDS: ALBUMIN 25% 100 ML IV ONE (10:44)
[2024-05-08 10:48] LABS: Hemoglobin 11.3 g/dL (13.5-17.5)
[2024-05-08 10:52] LABS: Hematocrit 35.2 % (41.0-53.0); Mean Corpuscular Hemoglobin 32.5 pg (28.0-32.0); Mean Corpuscular Hgb Conc. 32.2 g/dL (32.0-36.0); Mean Corpuscular Volume 100.9 fL (80.0-100.0); Platelet Count (auto) 54 10^3/uL (140-450); Red Blood Cells 3.48 10^6/uL (4.5-5.90); Red Cell Distribution Width 18.8 % (11.8-14.3)
[2024-05-08 10:54] LABS: Basophils % (manual) 0 (0.0-2.0); Blast Cells 0; Eosinophils % (manual) 0 (0-7); Myelocytes % 0; Promyelocytes % 0; Reactive Lymphocytes 0
[2024-05-08] MEDS ORDERED: NOREPINEPHRINE 8 MG/250ML KIT 250 ML IV SCH (11:00)
[2024-05-08 11:09] LABS: Alanine Aminotransferase 38 U/L (7-40); Alkaline Phosphatase 77 U/L (46-116); Anion Gap 13 (5-15); BUN/Creatinine Ratio 17.8 (10.0-20.0); Calcium 8.8 mg/dL (8.7-10.4); Carbon Dioxide 31 mmol/L (20-31); Chloride 100 mmol/L (98-107); Sodium 144 mmol/L (136-145)
[2024-05-08 11:10] LABS: Bilirubin, Total 0.9 mg/dL (0.2-1.0)
[2024-05-08 11:16] LABS: Band Neutrophils % (manual) 5; Lymphocytes % (manual) 1 (10.0-50.0); Macrocytosis Slight; Metamyelocytes % 2; Monocytes % (manual) 3 (0-12); Platelet Estimate Decreased
[2024-05-08 11:28] LABS: Albumin 2.8 g/dL (3.2-4.8); Aspartate Aminotransferase 57 U/L (13-40); Glucose 170 mg/dL (74-106); Total Protein 5.6 g/dL (5.7-8.2)
[2024-05-08 11:30] LABS: Blood Urea Nitrogen 91 mg/dL (9-23)
--- NOTE | 2024-05-08 15:34 | DVHPN2 ---
Progress Note Date Seen: May 08, 2024 Has the PT tested + for MRSA If YES, has PT been informed?: No Medical Necessity Reason Pt with a Central, PICC or Fol: Yes The following are medically ne: Chavez Catheter Subjective Other Systems: rate low 100s pt hit RN pt confused and getting haldol Objective vital signs Vital Sign Date Time Temp Pulse Resp B/P (MAP) Pulse Ox O2 Delivery O2 Flow Rate FiO2 05/08/24 15:15 105 17 103/44 (63) 94 05/08/24 14:00 Oxymizer 3 N/A 05/08/24 12:00 97.0 97.0 Total Intake and Output 05/07/24 05/07/24 05/08/24 15:00 23:00 07:00 Intake Total 160.28 ml 183.28 ml 145.28 ml Output Total 0 ml 3 ml Balance 160.28 ml 183.28 ml 142.28 ml medications Current Medications Medications Dose Ordered Sig/Leonor Route Start Time Stop Time Status Last Admin Dose Admin Acetaminophen 650 mg Q6HP PRN PO 05/02/24 01:45 Morphine Sulfate 2 mg Q4HPRN PRN IV 05/02/24 01:45 05/07/24 22:20 2 MG Nitroglycerin 0.4 mg Q5MINP PRN SL 05/02/24 01:45 Guaifenesin 200 mg Q4HP PRN GT 05/02/24 08:30 Diagnostic Test (Pha) 1 strip Q6HR 05/02/24 18:00 05/08/24 11:41 1 STRIP Insulin Human Regular Q6HR SC 05/02/24 18:00 05/08/24 11:43 2 UNITS Dextrose 50 ml UD PRN IV 05/02/24 13:00 Nystatin 1 applic BID TOP 05/02/24 22:00 05/08/24 14:12 1 APPLIC Levalbuterol HCl 1.25 mg Q6HPRN PRN NEB 05/03/24 14:15 05/08/24 12:44 1.25 MG Erythromycin 1 applic Q4HR OP 05/04/24 02:00 05/08/24 14:15 1 APPLIC Furosemide 60 mg DAILY IV 05/04/24 10:00 05/08/24 14:11 60 MG Enteral Nutritional Formula 27.5 gm BID PO 05/05/24 22:00 Methylprednisolone Sodium Succinate 40 mg BID IV 05/06/24 22:00 05/08/24 14:11 40 MG Ipratropium [place] 0.5 mg Q6HWA [facility] 05/06/24 18:00 05/08/24 12:44 0.5 MG Acetylcysteine 100 mg Q6HWA [facility] 05/06/24 18:00 05/08/24 12:44 100 MG Pantoprazole Sodium 40 mg DAILY IV 05/07/24 10:00 05/08/24 14:11 40 MG Meropenem 50 ml @ 17 mls/hr Q12H IV 05/08/24 06:00 05/08/24 06:13 17 MLS/HR Examination: GENERAL:Abnormal, HEENT:Abnormal, LUNGS:Abnormal, CVS:Abnormal, ABDOMEN:Abnormal laboratory and microbiology Laboratory Tests 05/08/24 10:15 Test 05/08/24 10:15 Range/Units Serum Glucose 170 H 74-106 mg/dL Microbiology Date/Time Source Procedure Growth Status 05/05/24 05:10 Nose MRSA Screen - Final Complete 05/02/24 13:10 Pleural Fluid Gram Stain - Final Complete 05/02/24 13:10 Pleural Fluid Body Fluid Culture - Final Complete 05/02/24 08:07 Blood Blood Culture - Final Staphylococcus lugdunensis Complete Problem List/Assessment/Plan Problem List/Assessment/Plan renal faliure agitation afib rvr edema r/o chf PAD venous disease of legs cont amio gtt dc heparin gtt for low PLTs rate not well controlled 2/2 to agitation s/ p HD may need bed sitter as well dc amio gtt when HR <100 and pt less agitated high cva risk consider treatment in setting of low PLTs will sign off please call for ?s Plan discussed with: Other (rn) Dietary Evaluation Review Recommendations by RD: Dietary education by RD, Protein Supplementation Comments: 1) Initiate Omar @ 1 pk bid 2) Encourage good PO intake 3) Refer to outpatient RD/[facility] for weight management 4) Continue to monitor appetite, labs, and skin integrity Expected Outcomes/Goals: 1) appetite and labs to improve 2) wound to improve 3) f/u in 3-5 days Date of Service: May 08, 2024 Billing Provider: ALYSSA PIERCE MD Common Visit Codes: NOT BILLABLE ALYSSA PIERCE MD May 08, 2024 15:34
--- NOTE | 2024-05-08 18:15 | DVHPN2 ---
Progress Note Date Seen: May 08, 2024 Has the PT tested + for MRSA If YES, has PT been informed?: No Medical Necessity Reason Pt with a Central, PICC or Fol: Yes The following are medically ne: Chavez Catheter Subjective Patient reports: Other (Appears altered) Review of Systems: Deferred Objective vital signs Vital Sign Date Time Temp Pulse Resp B/P (MAP) Pulse Ox O2 Delivery O2 Flow Rate FiO2 05/08/24 17:30 117 17 94 05/08/24 16:00 Oxymizer 3 N/A 05/08/24 12:00 97.0 97.0 Total Intake and Output 05/07/24 05/07/24 05/08/24 15:00 23:00 07:00 Intake Total 160.28 ml 183.28 ml 145.78 ml Output Total 0 ml 3 ml Balance 160.28 ml 183.28 ml 142.78 ml medications Current Medications Medications Dose Ordered Sig/Leonor Route Start Time Stop Time Status Last Admin Dose Admin Acetaminophen 650 mg Q6HP PRN PO 05/02/24 01:45 Morphine Sulfate 2 mg Q4HPRN PRN IV 05/02/24 01:45 05/07/24 22:20 2 MG Nitroglycerin 0.4 mg Q5MINP PRN SL 05/02/24 01:45 Guaifenesin 200 mg Q4HP PRN GT 05/02/24 08:30 Diagnostic Test (Pha) 1 strip Q6HR 05/02/24 18:00 05/08/24 17:21 1 STRIP Insulin Human Regular Q6HR SC 05/02/24 18:00 05/08/24 17:21 2 UNITS Dextrose 50 ml UD PRN IV 05/02/24 13:00 Nystatin 1 applic BID TOP 05/02/24 22:00 05/08/24 14:12 1 APPLIC Levalbuterol HCl 1.25 mg Q6HPRN PRN NEB 05/03/24 14:15 05/08/24 12:44 1.25 MG Erythromycin 1 applic Q4HR OP 05/04/24 02:00 05/08/24 14:15 1 APPLIC Furosemide 60 mg DAILY IV 05/04/24 10:00 05/08/24 14:11 60 MG Enteral Nutritional Formula 27.5 gm BID PO 05/05/24 22:00 Methylprednisolone Sodium Succinate 40 mg BID IV 05/06/24 22:00 05/08/24 14:11 40 MG Ipratropium [place] 0.5 mg Q6HWA NEB 05/06/24 18:00 05/08/24 12:44 0.5 MG Acetylcysteine 100 mg Q6HWA NEB 05/06/24 18:00 05/08/24 12:44 100 MG Pantoprazole Sodium 40 mg DAILY IV 05/07/24 10:00 05/08/24 14:11 40 MG Meropenem 50 ml @ 17 mls/hr Q12H IV 05/08/24 06:00 05/08/24 06:13 17 MLS/HR Examination: GENERAL:Abnormal, MSK:Abnormal, NEURO:Abnormal laboratory and microbiology Laboratory Tests 05/08/24 10:15 Test 05/08/24 10:15 Range/Units Serum Glucose 170 H 74-106 mg/dL Microbiology Date/Time Source Procedure Growth Status 05/05/24 05:10 Nose MRSA Screen - Final Complete 05/02/24 13:10 Pleural Fluid Gram Stain - Final Complete 05/02/24 13:10 Pleural Fluid Body Fluid Culture - Final Complete 05/02/24 08:07 Blood Blood Culture - Final Staphylococcus lugdunensis Complete Problem List/Assessment/Plan Problem List/Assessment/Plan Acute kidney injury suspect acute tubular necrosis in the setting of contrast exposure and vancomycin nephrotoxicity Patient also has superimposed hemodynamic states in the setting of low ejection fraction and persistent tachycardia. No previous CKD Hypercarbic respiratory insufficiency COPD Acidosis Atrial fibrillation with rapid ventricular response sepsis due to staph bacteremia recs Status post nallely cath HD today repeating for solute clearance monitor for renal recovery chairtime with DCD Plan discussed with: Other My Orders My Orders Orders - BLANCO FELICIANO MD Procedure Category Date Status Time Heparin Sodium PHA 05/09/24 In Process (Porcine) 07:00 Heparin Sodium PHA 05/09/24 In Process (Porcine) 07:00 Heparin Sodium PHA 05/09/24 In Process (Porcine) 07:00 Sodium Chloride 0.9% PHA 05/09/24 In Process 07:00 Hemodialysis Orders ORDERS 05/08/24 Transmitted 09:40 Dietary Evaluation Review Recommendations by RD: Dietary education by RD, Protein Supplementation Comments: 1) Initiate Omar @ 1 pk bid 2) Encourage good PO intake 3) Refer to outpatient RD/[facility] for weight management 4) Continue to monitor appetite, labs, and skin integrity Expected Outcomes/Goals: 1) appetite and labs to improve 2) wound to improve 3) f/u in 3-5 days BLANCO FELICIANO MD May 08, 2024 18:15
[2024-05-08 23:33] LABS: Base Excess -3.8 mmol/L (-2.0-3.0)
[2024-05-09] VITALS (20 sets, daily range): BP systolic 104–134; BP diastolic 56–77; PULSE 78–120; RESP 12–23; TEMP 96.6–98.3; O2SAT 86–98
[2024-05-09] MEDS: AMIODARONE HCL 200 MG TAB PO SCH (01:35)
[2024-05-09 07:04] LABS: Basophils # (auto) 0 10 ^3/uL (0-0.2); Eosinophils # (auto) 0 10 ^3/uL (0-0.8); Hemoglobin 10.9 g/dL (13.5-17.5); Lymphocytes # (auto) 0.3 10 ^3/uL (0.4-5.4); Mean Corpuscular Hgb Conc. 32.1 g/dL (32.0-36.0)
[2024-05-09 07:08] LABS: Lymphocytes % (auto) 1.2 % (10.0-50.0); Mean Corpuscular Hemoglobin 32.1 pg (28.0-32.0); Mean Corpuscular Volume 100.2 fL (80.0-100.0); Monocytes # (auto) 1.3 10 ^3/uL (0-1.3); Monocytes % (auto) 5.7 % (0.0-12.0); Neutrophils # (auto) 21.7 10 ^3/uL (1.6-8.6); Neutrophils % (auto) 93.1 % (37.0-80.0); Nucleated Red Blood Cells % 1.3 %; Platelet Count (auto) 45 10^3/uL (140-450); Red Blood Cells 3.39 10^6/uL (4.5-5.90); White Blood Cell 23.3 10^3/uL (4.4-10.8)
[2024-05-09 07:23] LABS: Alanine Aminotransferase 33 U/L (7-40); Albumin 3.2 g/dL (3.2-4.8); Alkaline Phosphatase 83 U/L (46-116); Anion Gap 13 (5-15); BUN/Creatinine Ratio 15.5 (10.0-20.0); Calcium 8.9 mg/dL (8.7-10.4); Carbon Dioxide 29 mmol/L (20-31); Chloride 99 mmol/L (98-107); Potassium 5.1 mmol/L (3.5-5.1); Sodium 141 mmol/L (136-145)
[2024-05-09 07:24] LABS: Aspartate Aminotransferase 49 U/L (13-40); Bilirubin, Total 1.3 mg/dL (0.2-1.0); Blood Urea Nitrogen 67 mg/dL (9-23); Glucose 172 mg/dL (74-106)
[2024-05-09] MEDS: HEPARIN SODIUM (PORCINE) 5000 UNITS/ML 1ML VIAL ONE (08:51)
[2024-05-09 09:27] LABS: Hepatitis A Ab IgM Negative; Hepatitis B Core IgM Negative (Negative); Hepatitis B Surface Antigen Negative (Negative); Hepatitis C Antibody Negative (Negative)
[2024-05-09] MEDS ORDERED: AMIODARONE HCL 200 MG TAB PO SCH (10:00)
--- NOTE | 2024-05-09 15:40 | DVHPN2 ---
Progress Note Date Seen: May 09, 2024 Has the PT tested + for MRSA If YES, has PT been informed?: No Medical Necessity Reason Pt with a Central, PICC or Fol: Yes The following are medically ne: Chavez Catheter Subjective Patient reports: Other (Downgraded from ICU mental status little better per RN) Review of Systems: Deferred Objective vital signs Vital Sign Date Time Temp Pulse Resp B/P (MAP) Pulse Ox O2 Delivery O2 Flow Rate FiO2 05/09/24 13:00 97.9 78 18 117/56 (76) 91 97.9 05/09/24 07:46 Oxymizer 8.0 05/09/24 07:46 N/A Total Intake and Output 05/08/24 05/08/24 05/09/24 15:00 23:00 07:00 Intake Total 4.0 ml 1.0 ml 200 ml Output Total 10 ml 0 ml Balance 4.0 ml -9.0 ml 200 ml medications Current Medications Medications Dose Ordered Sig/Leonor Route Start Time Stop Time Status Last Admin Dose Admin Acetaminophen 650 mg Q6HP PRN PO 05/02/24 01:45 Morphine Sulfate 2 mg Q4HPRN PRN IV 05/02/24 01:45 05/07/24 22:20 2 MG Nitroglycerin 0.4 mg Q5MINP PRN SL 05/02/24 01:45 Guaifenesin 200 mg Q4HP PRN GT 05/02/24 08:30 Diagnostic Test (Pha) 1 strip Q6HR 05/02/24 18:00 05/09/24 12:00 1 STRIP Insulin Human Regular Q6HR SC 05/02/24 18:00 05/09/24 12:02 3 UNITS Dextrose 50 ml UD PRN IV 05/02/24 13:00 Nystatin 1 applic BID TOP 05/02/24 22:00 05/09/24 10:33 1 APPLIC Levalbuterol HCl 1.25 mg Q6HPRN PRN NEB 05/03/24 14:15 05/08/24 19:50 1.25 MG Erythromycin 1 applic Q4HR OP 05/04/24 02:00 05/09/24 15:10 1 APPLIC Furosemide 60 mg DAILY IV 05/04/24 10:00 05/09/24 10:32 60 MG Methylprednisolone Sodium Succinate 40 mg BID IV 05/06/24 22:00 05/09/24 10:32 40 MG Ipratropium [place] 0.5 mg Q6HWA NEB 05/06/24 18:00 05/09/24 07:46 0.5 MG Acetylcysteine 100 mg Q6HWA NEB 05/06/24 18:00 05/09/24 07:46 100 MG Meropenem 50 ml @ 17 mls/hr Q12H IV 05/08/24 06:00 05/09/24 10:34 17 MLS/HR Amiodarone HCl 200 mg Q12HR PO 05/09/24 01:45 05/09/24 10:33 200 MG Examination: GENERAL:Abnormal, LUNGS:Abnormal, MSK:Abnormal, NEURO:Abnormal laboratory and microbiology Laboratory Tests 05/09/24 05:39 Test 05/09/24 05:39 Range/Units Serum Glucose 172 H 74-106 mg/dL Microbiology Date/Time Source Procedure Growth Status 05/05/24 05:10 Nose MRSA Screen - Final Complete 05/02/24 13:10 Pleural Fluid Gram Stain - Final Complete 05/02/24 13:10 Pleural Fluid Body Fluid Culture - Final Complete 05/02/24 08:07 Blood Blood Culture - Final Staphylococcus lugdunensis Complete Problem List/Assessment/Plan Problem List/Assessment/Plan Acute kidney injury suspect acute tubular necrosis in the setting of contrast exposure and vancomycin nephrotoxicity Patient also has superimposed hemodynamic states in the setting of low ejection fraction and persistent tachycardia. No previous CKD Hypercarbic respiratory insufficiency COPD Acidosis Atrial fibrillation with rapid ventricular response sepsis due to staph bacteremia recs Status post nallely cath HD today repeating for solute clearance monitor for signs of renal recovery chairtime with DCD No urine output still,, we will need tunneled dialysis catheter prior to discharge if no renal recovery Plan discussed with: Other My Orders My Orders Orders - BLANCO FELICIANO MD Procedure Category Date Status Time Hemodialysis Orders ORDERS 05/09/24 Transmitted 10:23 Dietary Evaluation Review Recommendations by RD: Dietary education by RD, Protein Supplementation Comments: 1) Initiate Omar @ 1 pk bid 2) Encourage good PO intake 3) Refer to outpatient RD/CDCES for weight management 4) Continue to monitor appetite, labs, and skin integrity Expected Outcomes/Goals: 1) appetite and labs to improve 2) wound to improve 3) f/u in 3-5 days BLANCO FELICIANO MD May 09, 2024 15:40
[2024-05-09] MEDS ORDERED: VANCOMYCIN PER PHARMACY 0 MG IV SCH (16:15)
[2024-05-09 17:59] LABS: Base Excess -1.9 mmol/L (-2.0-3.0)
--- NOTE | 2024-05-09 18:25 | DVHPNRES ---
Progress Note Date Seen: May 09, 2024 Resident Creating Document: GARRY MCCALL RESIDENT Has the PT tested + for MRSA If YES, has PT been informed?: No Medical Necessity Reason Pt with a Central, PICC or Fol: Yes The following are medically ne: Chavez Catheter Objective vital signs Vital Sign Date Time Temp Pulse Resp B/P (MAP) Pulse Ox O2 Delivery O2 Flow Rate FiO2 05/09/24 17:25 108 88 Facial BiPAP Mask 60 05/09/24 17:00 97.5 17 126/74 (91) 97.5 05/09/24 07:46 8.0 Total Intake and Output 05/08/24 05/08/24 05/09/24 15:00 23:00 07:00 Intake Total 4.0 ml 1.0 ml 200 ml Output Total 10 ml 0 ml Balance 4.0 ml -9.0 ml 200 ml medications Current Medications Medications Dose Ordered Sig/Leonor Route Start Time Stop Time Status Last Admin Dose Admin Acetaminophen 650 mg Q6HP PRN PO 05/02/24 01:45 Morphine Sulfate 2 mg Q4HPRN PRN IV 05/02/24 01:45 05/07/24 22:20 2 MG Nitroglycerin 0.4 mg Q5MINP PRN SL 05/02/24 01:45 Guaifenesin 200 mg Q4HP PRN GT 05/02/24 08:30 Diagnostic Test (Pha) 1 strip Q6HR 05/02/24 18:00 05/09/24 12:00 1 STRIP Insulin Human Regular Q6HR SC 05/02/24 18:00 05/09/24 12:02 3 UNITS Dextrose 50 ml UD PRN IV 05/02/24 13:00 Nystatin 1 applic BID TOP 05/02/24 22:00 05/09/24 10:33 1 APPLIC Levalbuterol HCl 1.25 mg Q6HPRN PRN NEB 05/03/24 14:15 05/08/24 19:50 1.25 MG Erythromycin 1 applic Q4HR OP 05/04/24 02:00 05/09/24 15:10 1 APPLIC Furosemide 60 mg DAILY IV 05/04/24 10:00 05/09/24 10:32 60 MG Methylprednisolone Sodium Succinate 40 mg BID IV 05/06/24 22:00 05/09/24 10:32 40 MG Ipratropium [place] 0.5 mg Q6HWA NEB 05/06/24 18:00 05/09/24 07:46 0.5 MG Acetylcysteine 100 mg Q6HWA NEB 05/06/24 18:00 05/09/24 07:46 100 MG Meropenem 50 ml @ 17 mls/hr Q12H IV 05/08/24 06:00 05/09/24 10:34 17 MLS/HR Amiodarone HCl 200 mg Q12HR PO 05/09/24 01:45 05/09/24 10:33 200 MG Vancomycin HCl 0 ml @ 0 mls/hr UD IV 05/09/24 16:15 UNV Examination Constitutional: Yes: Weakness, overall looks sicker again Eyes: No: Pain, Vision change, Conjunctivae inflammation, Eyelid inflammation, Other, Redness, improved ENT: No: Ear pain, Ear discharge, Nose pain, Nose discharge, Nose congestion, Mouth pain, Mouth swelling, Throat pain, Throat swelling, Other Respiratory: Shortness of breath, Wheezing, more air entry on the left side, still has bilateral lower lobe dependent area of diminished breathing. Cardiovascular: Edema Bilateral lower leg. , worsened Gastrointestinal: No: Nausea, Vomiting, Abdominal Pain, Diarrhea, Constipation, Melena, Hematochezia, Other Genitourinary: No Dysuria, No Frequency, No Incontinence, No Hematuria, No Retention, No Other patient on Chavez's catheter for close input output minimal output. Musculoskeletal: No: other, neck pain, shoulder pain, arm pain, back pain, hand pain, leg pain, foot pain Skin: Lesions, Bruising Neurological: Alert awake, conversant, interactive. Mildly agitated. No: Weakness, Numbness, Incoordination, Change in speech, Confusion, Seizures, Other Patient is alert obtunded, noted post intubation NPO, head end elevated at 45 degree laboratory and microbiology Laboratory Tests 05/09/24 05:39 Test 05/09/24 05:39 Range/Units Serum Glucose 172 H 74-106 mg/dL Microbiology Date/Time Source Procedure Growth Status 05/05/24 05:10 Nose MRSA Screen - Final Complete 05/02/24 13:10 Pleural Fluid Gram Stain - Final Complete 05/02/24 13:10 Pleural Fluid Body Fluid Culture - Final Complete 05/02/24 08:07 Blood Blood Culture - Final Staphylococcus lugdunensis Complete Labs and/or images reviewed: Labs reviewed by me, Image(s) reviewed by me Problem List/Assessment/Plan Problem List/Assessment/Plan ICU Course: Nirav Junior, a 78-year-old male with a history of type 2 diabetes, hypertension, atrial fibrillation, and COPD on home oxygen, presented to the ED with bilateral lower leg weakness and ongoing shortness of breath. He reports his legs giving out when trying to stand, which prompted his visit. He denies fever, cold, nausea, vomiting, diaphoresis, and other acute symptoms. 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 He has no known allergies and his home medications were not specified. Since yesterday patient had moderate fluid removal from the left lung with the help of IR team, patient has started having shortness of breath, acute decompensation and hemodynamically instability needing BiPAP support: patient remains in floor for close monitoring worsening status after 3rd episode of dialysis, possible aspiration/worsening of infection, we will leukocytosis and CO2 retention pointing towards acute respiratory acidosis needing BiPAP support. Hospitalization day: 8 A. Neurology: # metabolic and/or toxic encephalopathy: Uremia, CO2 retention, multifactorial, electrolyte dysfunction. Alert but limited orientation. Continues to improve after dialysis, Patient passed swallow eval test, continue fall and aspiration precautions. # hyperactive delirium, previously: In-hospital patient has hyperactive delirium with agitation, please continue supportive care, frequent reorientation, sleep-wake cycle. We will downgrade to telemetry floor with a sitter support. Continue delirium precautions, frequent reorientations. If patient worsens hemodynamically and still needs BiPAP we will possibly need upgrade again to DOA B. Cardiology: # New onset of AFib RVR: Chads Vasc score of 7, high-risk of thromboembolism. Noted on EKG and telemetry, started the patient on amiodarone drip>> change to 200 b.i.d. of amiodarone to restrict fluid, as per RACE II trial we will try to keep the heart rate below 110. Partially heart rate high due to underlying sepsis. Cardiology consulted looking for input. tachycardia could be compensatory mechanism for reduced stroke volume to maintain cardiac output, we will avoid negative ionotropic drugs: BB/CCB's # possible pericardial effusion, no tamponade: Pending echo/TTE confirmed likely due to fluid overload state # essential hypertension: [place] blood pressure 130/ 80 or below. We will hold antihypertensives for now in the setting of sepsis/ Hydrodynamic instability # acute heart failure with reduced ejection fraction 20%, cause unknown, cardiology consulted looking for input, not a candidate for GDM T, but started the patient on IV Lasix 60 daily. At this point patient is fluid overloaded with acute renal failure likely will benefit from hemodialysis/reduction of additional fluid. Continue dialysis as tolerated C. Respiratory: # past 40 pack-year smoking history, quit less than 15 years back. # Known COPD: Questionable noncompliance, continue levalbuterol and ipratropium therapeutic breathing treatment, influenza and COVID negative, continue IV methylprednisolone b.i.d. repeat CXR today shows improvement, we will repeat CXR if major changes in respiratory status # Respiratory deconditioning secondary due to previous COVID pneumonia # acute on chronic hypoxic /hypercapnic respiratory failure : baseline oxygen 4-5 L [id number], We will try to keep the SpO2 between 88-92 %, presently on 6 L of nasal cannula oxygen> hopefully dialysis we will help improving oxygenation. Titrate as tolerated. # Left-sided massive pleural effusion: Status post removal of 3800+ mL of pleural fluid by IR. Samples sent, check for serum LDH, protein, light's criteria. Follow the result. # Respiratory acidosis, improving with BiPAP, as needed anxiety medications. P atient back to improved state of alertness, recheck blood gas tomorrow a.m.. # acute Gram-positive Gram-negative bacterial pneumonia: Check MRSA, check sputum culture, keep the patient on broad-spectrum antibiotics with covering both Gram-negative and Gram-positive. # Likely, re-expansion pulmonary edema: Likely due to removal of moderate amount of pleural fluid . Continue reduced to IV methylprednisolone. Continue levalbuterol and ipratropium. # transudative bilateral pleural effusion: Gram-negative, likely due to heart failure: Status post left-sided tap. Improving with dialysis # bilateral atelectasis: Continue Q 1 incentive spirometry # new onset of respiratory acute acidosis: Blood gas noted this afternoon, put the patient on BiPAP, repeat post to our BiPAP trial at 15/5 shows improve the CO2 retention, we will recommend overnight BiPAP and a.m. blood gas. D. Gastrointestinal: # GERD/ GI prophylaxis:ppi prophylaxis to continue # Mild hyperbilirubinemia: Abdominal finding unremarkable. Follow up CMP daily. Abdominal examination unremarkable # mild transaminitis: Pending hepatitis workup. Likely hepatic congestion related. # respiratory distress likely due to aspiration pneumonia, keep the patient NPO, on BiPAP, we will recheck swallow evaluation E. Genitourinary: no active issues noted so far, on both Chavez's catheter low urine output F. Infectious Disease: # intertrigo, continue nystatin powder # sepsis: Likely due to community-acquired pneumonia, continue IV vancomycin and meropenem for now, pancultures pending follow closely. DC vancomycin as vancomycin trough elevated In the background of worsening renal failure. # blood culture 1/2 present with Staphylococcus lugdenesis likely contaminant, MRSA negative, # Worsening leukocytosis: Afebrile, we will remove foreign objects including the Chavez's catheter and we will reintroduce if needed. Urine culture sent. Continue meropenem vancomycin restarted. Called for wound care for skin wounds. G. Hematology & Oncology: # mild thrombocytopenia> progressed to moderate> now in severe: Close monitoring of H&H, platelets, high-risk of thromboembolism on IV heparin drip/held. Follow up platelets. patient continues to have thrombocytopenia. If platelets drop then patient needs holding of heparin drip. # worsening thrombocytopenia likely due to HI T: Avoid all heparin and heparin containing medications, severe thrombocytopenia, check CBC. H. Nephrology: Patient is on Chavez's catheter since 05/03, poor urine output, we will DC the Chavez's. # no known CKD # likely acute tubular necrosis: contrast nephropathy And vancomycin nephrotoxicity likely contributing. Nephrology on board, on IV Lasix 65, Josh catheter is placed, likely the patient will need initiation of hemodialysis. Avoid further nephrotoxic, hemodialysis day 2 to continues to tolerate. Approximately 2 L fluid ou> repeat hemodialysis today for further fluid removal # hyperkalemia: Status post IV Lasix, dextrose and insulin. 5.3, check the patient's repeat CMP tomorrow morning. Monitor closely with patient's other electrolytes. Likely we will need hemodialysis to correct the electrolyte disbalance. Target potassium above 4 and magnesium above 2. I. Endocrine: # ?previous history of diabetes: HbA1c 5.5 no treatment needed at this point: [place] BG in-hospital 140-180, BG elevated likely due to IV steroids /cautious correction of BG with insulin given renal failure. J. MSK: # peripheral arterial disease: Bilateral lower limb Extremely poor vasculature, vascular surgery consulted. Podiatry evaluated the patient, continue care with wound care and [facility]. 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 K. Prophylaxis: PPI: Protonix IV daily DVT: SCDs /heparin drip high-risk of thromboembolism to hold because of worsening thrombocytopenia L. Lines & Drains (with insertion date): IV peripheral IV, since 05/01/2024 Right IJ venous catheter with distal tip in the SVC Since 05/03/2024 Arterial line: Not needed at this point Josh catheter for hemodialysis: 05/06 New midline 05/07 M. Drips: amiodarone drip>> change to oral to limit fluid intake N. Disposition: Remains in [facility] Code status: Modified code status with DNI, ACLS and chest compression without defibrillation. Discussed with the patient and patient's caregiver, paperwork in file, she provided the POA. Agreeable to take care of the patient at discharge. But patient again developed acute carbon dioxide retention and respiratory acidosis. Extremely poor prognosis in days to weeks with multiorgan disease. If patient condition worsens, does not respond to the aggressive management, we will need a goals of care discussion tomorrow. The plan was discussed with the ICU attending Dr. Bradford. The patient care consists of total 69 minutes of critical care time excluding the procedures. Dictated by Garry Mccall MD with 3M MModal Fluency. Plan discussed with: Patient, Other (Roommate POA) My Orders My Orders Orders - GARRY MCCALL RESIDENT Procedure Category Date Status Time Incentive Spirometry ORDERS 05/08/24 Transmitted Q 1hr 18:52 Fall Precautions KIRSTEN 05/08/24 In Process Initiated 18:52 Pt Request For Service PT 05/08/24 Logged 23:07 Abg W/ Co-Ox RT 05/09/24 Logged 04:00 Amiodarone Tablet PHA 05/09/24 In Process (Cordarone Tablet) 01:45 Abg W/ Co-Ox RT 05/09/24 Logged 18:45 Bladder US 05/09/24 Transmitted 18:00 BIPAP RT 05/09/24 Logged 18:20 Abg W/ Co-Ox RT 05/09/24 Logged 20:00 Dietary Evaluation Review Recommendations by RD: Dietary education by RD, Protein Supplementation Comments: 1) Initiate Omar @ 1 pk bid 2) Encourage good PO intake 3) Refer to outpatient RD/CDCES for weight management 4) Continue to monitor appetite, labs, and skin integrity Expected Outcomes/Goals: 1) appetite and labs to improve 2) wound to improve 3) f/u in 3-5 days Date of Service: May 09, 2024 Billing Provider: LEON BRADFORD MD Common Visit Codes: 61630-[id number] CARE 30-74 MIN GARRY MCCALL RESIDENT May 09, 2024 18:25 LEON BRADFORD MD May 12, 2024 15:35
[2024-05-09 19:01] LABS: Base Excess 0.8 mmol/L (-2.0-3.0)
[2024-05-09] MEDS: VANCOMYCIN 1GM/250mL NS or D5W KIT IV ONE (20:49)
[2024-05-10] VITALS (20 sets, daily range): BP systolic 105–119; BP diastolic 52–66; PULSE 95–125; RESP 14–23; TEMP 97.4–98.5; O2SAT 94–99
[2024-05-10] MEDS: AMIODARONE 360mg/200mL PREMIX 200 ML IV SCH (03:15)
[2024-05-10] MEDS ORDERED: AMIODARONE 360mg/200mL PREMIX 200 ML IV SCH (05:30)
--- NOTE | 2024-05-10 05:43 | DVH ---
CHEST RADIOGRAPH Indication: chf Technique: Single frontal view of the chest was obtained Comparison: XY CHEST XRAY 1 VIEW on DOS: 05/08/24 FINDINGS: Lines and Tubes: Left central venous catheter terminating in the superior vena cava is unchanged. Lungs: Pulmonary edema is similar to prior study. Superimposed pneumonia is not excluded. Pleura: No effusion. No pneumothorax. Cardiomediastinal contours: Stable. Bones: No acute osseous abnormality. IMPRESSION: 1. Stable pulmonary edema. Superimposed pneumonia is not excluded.
[2024-05-10 06:57] LABS: Platelet Count (auto) 44 10^3/uL (140-450)
[2024-05-10 07:01] LABS: Hematocrit 34.5 % (41.0-53.0); Hemoglobin 11.2 g/dL (13.5-17.5); Mean Corpuscular Hemoglobin 32.4 pg (28.0-32.0); Mean Corpuscular Hgb Conc. 32.5 g/dL (32.0-36.0); Mean Corpuscular Volume 99.6 fL (80.0-100.0); Red Blood Cells 3.47 10^6/uL (4.5-5.90); Red Cell Distribution Width 18.6 % (11.8-14.3); White Blood Cell 25.9 10^3/uL (4.4-10.8)
[2024-05-10 07:17] LABS: Basophils % (manual) 0 (0.0-2.0); Blast Cells 0; Eosinophils % (manual) 0 (0-7); Metamyelocytes % 0; Myelocytes % 0; Promyelocytes % 0; Reactive Lymphocytes 0
[2024-05-10 07:29] LABS: Alanine Aminotransferase 30 U/L (7-40); Alkaline Phosphatase 99 U/L (46-116); Anion Gap 15 (5-15); BUN/Creatinine Ratio 13.7 (10.0-20.0); Calcium 8.8 mg/dL (8.7-10.4); Carbon Dioxide 25 mmol/L (20-31); Potassium 4.9 mmol/L (3.5-5.1); Sodium 138 mmol/L (136-145)
[2024-05-10 07:43] LABS: Albumin 3.1 g/dL (3.2-4.8); Aspartate Aminotransferase 40 U/L (13-40); Bilirubin, Total 1.7 mg/dL (0.2-1.0); Blood Urea Nitrogen 53 mg/dL (9-23); Chloride 98 mmol/L (98-107); Glucose 183 mg/dL (74-106); Phosphorus 5.6 mg/dL (2.4-5.1)
[2024-05-10 08:09] LABS: Band Neutrophils % (manual) 3; Lymphocytes % (manual) 2 (10.0-50.0); Monocytes % (manual) 3 (0-12); Platelet Estimate Decreased
[2024-05-10 08:21] LABS: Base Excess -3.3 mmol/L (-2.0-3.0)
--- NOTE | 2024-05-10 09:34 | DVHPNRES ---
Progress Note Date Seen: May 10, 2024 Resident Creating Document: GARYR MCCALL RESIDENT Has the PT tested + for MRSA If YES, has PT been informed?: No Medical Necessity Reason Pt with a Central, PICC or Fol: Yes The following are medically ne: Chavez Catheter Objective vital signs Vital Sign Date Time Temp Pulse Resp B/P (MAP) Pulse Ox O2 Delivery O2 Flow Rate FiO2 05/10/24 08:59 105/56 05/10/24 07:50 94 Bi-pap/CPAP 05/10/24 07:50 104 60 05/10/24 07:50 14 05/10/24 05:00 98.2 98.2 05/09/24 20:00 8 Total Intake and Output 05/09/24 05/09/24 05/10/24 15:00 23:00 07:00 Intake Total 100 ml 0 ml Output Total 10 ml 0 ml Balance 90 ml 0 ml medications Current Medications Medications Dose Ordered Sig/Leonor Route Start Time Stop Time Status Last Admin Dose Admin Acetaminophen 650 mg Q6HP PRN PO 05/02/24 01:45 Morphine Sulfate 2 mg Q4HPRN PRN IV 05/02/24 01:45 05/07/24 22:20 2 MG Nitroglycerin 0.4 mg Q5MINP PRN SL 05/02/24 01:45 Guaifenesin 200 mg Q4HP PRN GT 05/02/24 08:30 Diagnostic Test (Pha) 1 strip Q6HR 05/02/24 18:00 05/10/24 05:56 1 STRIP Insulin Human Regular Q6HR SC 05/02/24 18:00 05/10/24 05:55 3 UNITS Dextrose 50 ml UD PRN IV 05/02/24 13:00 Nystatin 1 applic BID TOP 05/02/24 22:00 05/10/24 08:57 1 APPLIC Levalbuterol HCl 1.25 mg Q6HPRN PRN NEB 05/03/24 14:15 05/10/24 07:50 1.25 MG Erythromycin 1 applic Q4HR OP 05/04/24 02:00 05/10/24 08:58 1 APPLIC Furosemide 60 mg DAILY IV 05/04/24 10:00 05/10/24 08:59 60 MG Methylprednisolone Sodium Succinate 40 mg BID IV 05/06/24 22:00 05/10/24 08:58 40 MG Ipratropium [place] 0.5 mg Q6HWA NEB 05/06/24 18:00 05/10/24 07:50 0.5 MG Acetylcysteine 100 mg Q6HWA NEB 05/06/24 18:00 05/10/24 07:50 100 MG Meropenem 50 ml @ 17 mls/hr Q12H IV 05/08/24 06:00 05/10/24 05:54 17 MLS/HR Vancomycin HCl 0 ml @ 0 mls/hr UD IV 05/09/24 16:15 Examination Constitutional: Yes: Weakness, overall looks sicker again Eyes: No: Pain, Vision change, Conjunctivae inflammation, Eyelid inflammation, Other, Redness, improved ENT: No: Ear pain, Ear discharge, Nose pain, Nose discharge, Nose congestion, Mouth pain, Mouth swelling, Throat pain, Throat swelling, Other Respiratory: Shortness of breath, Wheezing, more air entry on the left side, still has bilateral lower lobe dependent area of diminished breathing. Cardiovascular: Edema Bilateral lower leg. , worsened Gastrointestinal: No: Nausea, Vomiting, Abdominal Pain, Diarrhea, Constipation, Melena, Hematochezia, Other Genitourinary: No Dysuria, No Frequency, No Incontinence, No Hematuria, No Retention, No Other patient on Chavez's catheter for close input output minimal output. Musculoskeletal: No: other, neck pain, shoulder pain, arm pain, back pain, hand pain, leg pain, foot pain Skin: Lesions, Bruising Neurological: Alert awake, conversant, interactive. Mildly agitated. No: Weakness, Numbness, Incoordination, Change in speech, Confusion, Seizures, Other Patient is alert obtunded, noted post intubation NPO, head end elevated at 45 degree laboratory and microbiology Laboratory Tests 05/10/24 06:22 Test 05/10/24 06:22 Range/Units Serum Glucose 183 H 74-106 mg/dL Microbiology Date/Time Source Procedure Growth Status 05/05/24 05:10 Nose MRSA Screen - Final Complete 05/02/24 13:10 Pleural Fluid Gram Stain - Final Complete 05/02/24 13:10 Pleural Fluid Body Fluid Culture - Final Complete 05/02/24 08:07 Blood Blood Culture - Final Staphylococcus lugdunensis Complete Labs and/or images reviewed: Labs reviewed by me, Image(s) reviewed by me Problem List/Assessment/Plan Problem List/Assessment/Plan ICU Course: Nirav Junior, a 78-year-old male with a history of type 2 diabetes, hypertension, atrial fibrillation, and COPD on home oxygen, presented to the ED with bilateral lower leg weakness and ongoing shortness of breath. He reports his legs giving out when trying to stand, which prompted his visit. He denies fever, cold, nausea, vomiting, diaphoresis, and other acute symptoms. He lives with a animal feeder and denies smoking, alcohol, and drug abuse. He has no known allergies and his home medications were not specified. Since yesterday patient had moderate fluid removal from the left lung with the help of IR team, patient has started having shortness of breath, acute decompensation and hemodynamically instability needing BiPAP support: patient remains in floor for close monitoring worsening status after 3rd episode of dialysis, possible aspiration/worsening of infection, we will leukocytosis and CO2 retention pointing towards acute respiratory acidosis needing BiPAP support. Hospitalization day: 9 A. Neurology: # metabolic and/or toxic encephalopathy: Uremia, CO2 retention, multifactorial, electrolyte dysfunction. Alert but limited orientation. Continues to improve after dialysis, Patient passed swallow eval test, continue fall and aspiration precautions. # hyperactive delirium, previously: In-hospital patient has hyperactive delirium with agitation, please continue supportive care, frequent reorientation, sleep-wake cycle. We will downgrade to telemetry floor with a sitter support. Continue delirium precautions, frequent reorientations. If patient worsens hemodynamically and still needs BiPAP we will possibly need upgrade again to DOA B. Cardiology: # New onset of AFib RVR: Chads Vasc score of 7, high-risk of thromboembolism. Noted on EKG and telemetry, started the patient on amiodarone drip>> change to 200 b.i.d. of amiodarone to restrict fluid, as per RACE II trial we will try to keep the heart rate below 110. Partially heart rate high due to underlying sepsis. Cardiology consulted looking for input. tachycardia could be compensatory mechanism for reduced stroke volume to maintain cardiac output, we will avoid negative ionotropic drugs: BB/CCB's # possible pericardial effusion, no tamponade: Pending echo/TTE confirmed likely due to fluid overload state # essential hypertension: [place] blood pressure 130/ 80 or below. We will hold antihypertensives for now in the setting of sepsis/ Hydrodynamic instability # acute heart failure with reduced ejection fraction 20%, cause unknown, cardiology consulted looking for input, not a candidate for GDM T, but started the patient on IV Lasix 60 daily. At this point patient is fluid overloaded with acute renal failure likely will benefit from hemodialysis/reduction of additional fluid. Continue dialysis as tolerated C. Respiratory: # past 40 pack-year smoking history, quit less than 15 years back. # Known COPD: Questionable noncompliance, continue levalbuterol and ipratropium therapeutic breathing treatment, influenza and COVID negative, continue IV methylprednisolone b.i.d. repeat CXR today shows improvement, we will repeat CXR if major changes in respiratory status # Respiratory deconditioning secondary due to previous COVID pneumonia # acute on chronic hypoxic /hypercapnic respiratory failure : baseline oxygen 4-5 L [id number], We will try to keep the SpO2 between 88-92 %, presently on 6 L of nasal cannula oxygen> hopefully dialysis we will help improving oxygenation. Titrate as tolerated. # Left-sided massive pleural effusion: Status post removal of 3800+ mL of pleural fluid by IR. Samples sent, check for serum LDH, protein, light's criteria. Follow the result. # Respiratory acidosis, improving with BiPAP, as needed anxiety medications. Patient back to improved state of alertness, recheck blood gas tomorrow a.m.. # acute Gram-positive Gram-negative bacterial pneumonia: Check MRSA, check sputum culture, keep the patient on broad-spectrum antibiotics with covering both Gram-negative and Gram-positive. # Likely, re-expansion pulmonary edema: Likely due to removal of moderate amount of pleural fluid . Continue reduced to IV methylprednisolone. Continue levalbuterol and ipratropium. # transudative bilateral pleural effusion: Gram-negative, likely due to heart failure: Status post left-sided tap. Improving with dialysis # bilateral atelectasis: Continue Q 1 incentive spirometry # new onset of respiratory acute acidosis: Blood gas noted this afternoon, put the patient on BiPAP, repeat post to our BiPAP trial at 15/5 shows improve the CO2 retention, we will recommend overnight BiPAP and a.m. blood gas. patient still needs further bipap support. D. Gastrointestinal: # GERD/ GI prophylaxis:ppi prophylaxis to continue # Mild hyperbilirubinemia: Abdominal finding unremarkable. Follow up CMP daily. Abdominal examination unremarkable # mild transaminitis: Pending hepatitis workup. Likely hepatic congestion related. # respiratory distress likely due to aspiration pneumonia, keep the patient NPO, on BiPAP, we will recheck swallow evaluation E. Genitourinary: no active issues noted so far, on both Chavez's catheter low urine output F. Infectious Disease: # intertrigo, continue nystatin powder # sepsis: Likely due to community-acquired pneumonia, continue IV vancomycin and meropenem for now, pancultures pending follow closely. DC vancomycin as vancomycin trough elevated In the background of worsening renal failure. # blood culture 1/2 present with Staphylococcus lugdenesis likely contaminant, MRSA negative, # Worsening leukocytosis: Afebrile, we will remove foreign objects including the Chavez's catheter and we will reintroduce if needed. Urine culture sent. Continue meropenem vancomycin restarted. Called for wound care for skin wounds. G. Hematology & Oncology: # mild thrombocytopenia> progressed to moderate> now in severe: Close monitoring of H&H, platelets, high-risk of thromboembolism on IV heparin drip/held. Follow up platelets. patient continues to have thrombocytopenia. If platelets drop then patient needs holding of heparin drip. # worsening thrombocytopenia likely due to HI T: Avoid all heparin and heparin containing medications, severe thrombocytopenia, check CBC. H. Nephrology: Patient is on Chavez's catheter since 05/03, poor urine output, we will DC the Chavez's. # no known CKD # likely acute tubular necrosis: contrast nephropathy And vancomycin nephrotoxicity likely contributing. Nephrology on board, on IV Lasix 65, Josh catheter is placed, likely the patient will need initiation of hemodialysis. Avoid further nephrotoxic, hemodialysis day 2 to continues to tolerate. Approximately 2 L fluid ou> repeat hemodialysis today for further fluid removal # hyperkalemia: Status post IV Lasix, dextrose and insulin. 5.3, check the patient's repeat CMP tomorrow morning. Monitor closely with patient's other electrolytes. Likely we will need hemodialysis to correct the electrolyte disbalance. Target potassium above 4 and magnesium above 2. I. Endocrine: # ?previous history of diabetes: HbA1c 5.5 no treatment needed at this point: [place] BG in-hospital 140-180, BG elevated likely due to IV steroids /cautious correction of BG with insulin given renal failure. J. MSK: # peripheral arterial disease: Bilateral lower limb Extremely poor vasculature, vascular surgery consulted. Podiatry evaluated the patient, continue care with wound care and [facility]. 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 K. Prophylaxis: PPI: Protonix IV daily DVT: SCDs /heparin drip high-risk of thromboembolism to hold because of worsening thrombocytopenia L. Lines & Drains (with insertion date): IV peripheral IV, since 05/01/2024 Right IJ venous catheter with distal tip in the SVC Since 05/03/2024 Arterial line: Not needed at this point Josh catheter for hemodialysis: 05/06 New midline 05/07 M. Drips: amiodarone drip>> change to oral to limit fluid intake N. Disposition: Remains in [facility] Code status: Modified code status with DNI, ACLS and chest compression without defibrillation. Discussed with the patient and patient's caregiver, paperwork in file, she provided the POA. Agreeable to take care of the patient at discharge. But patient again developed acute carbon dioxide retention and respiratory acidosis. Extremely poor prognosis in days to weeks with multiorgan disease. If patient condition worsens, does not respond to the aggressive management, we will need a goals of care discussion tomorrow. The plan was discussed with the ICU attending Dr. Yrn Hahn. The patient care consists of total 87 minutes of critical care time excluding the procedures. Dictated by Garry Mccall MD with 3M MModal Fluency. Plan discussed with: Patient, Other (primary team. ) My Orders My Orders Orders - GARRY MCCALL RESIDENT Procedure Category Date Status Time Abg W/ Co-Ox RT 05/09/24 Logged 18:45 Bladder US 05/09/24 Transmitted 18:00 BIPAP RT 05/09/24 Logged 18:20 Abg W/ Co-Ox RT 05/10/24 Logged 06:00 Npo (Nothing By DIET 05/10/24 Transmitted Mouth) Diet Breakfast Strict Aspiration KIRSTEN 05/09/24 In Process Precautions 21:23 Dietary Evaluation Review Recommendations by RD: Dietary education by RD, Protein Supplementation Comments: 1) Initiate Omar @ 1 pk bid 2) Encourage good PO intake 3) Refer to outpatient RD/CDCES for weight management 4) Continue to monitor appetite, labs, and skin integrity Expected Outcomes/Goals: 1) appetite and labs to improve 2) wound to improve 3) f/u in 3-5 days Labs/Diagnostic Data Laboratory Tests Test 05/10/24 08:10 05/10/24 06:22 05/10/24 05:20 05/09/24 18:56 Range/Units Blood Gas Specimen Type Arterial Arterial Blood Gas Sample Site Right radial Right radial Blood Gas Patient Temperature 37.0 37.0 Arterial Blood Date Drawn [id number] Arterial Blood pH 7.257 L 7.246 *L 7.350-7.450 Arterial Blood Partial Pressure CO2 55.9 H 69.8 *H 35.0-48.0 mmHg Arterial Blood Partial Pressure O2 62.6 L 64.7 L 83.0-108.0 mmHg Arterial Blood HCO3 24.4 29.6 H 21.0-28.0 mmol/L Arterial Blood Oxygen Saturation 88.0 L 88.9 L 94.0-98.0 % Arterial Blood Base Excess -3.3 L 0.8 -2.0-3.0 mmol/L Arterial Blood Oxyhemoglobin 86.4 L 87.7 L 94.0-98.0 % Arterial Blood Carboxyhemoglobin 1.2 0.8 0.5-1.5 % Arterial Blood Methemoglobin 0.6 0.5 0.0-1.5 % Prosper Test Yes Yes Blood Gas Total Hemoglobin 11.80 L 12.40 L 13.5-17.5 g/dL Blood Gas Set Respiration Rate 14.0 14.0 Blood Gas Modality Mask - bipap Mask - bipap FiO2 % 60.0 60.0 Blood Gas EPAP 5 5 Blood Gas IPAP 15 15 White Blood Count 25.9 H 4.4-10.8 10^3/uL Red Blood Count 3.47 L 4.5-5.90 10^6/uL Hemoglobin 11.2 L 13.5-17.5 g/dL Hematocrit 34.5 L 41.0-53.0 % Mean Corpuscular Volume 99.6 80.0-100.0 fL Mean Corpuscular Hemoglobin 32.4 H 28.0-32.0 pg Mean Corpuscular Hemoglobin Concent 32.5 32.0-36.0 g/dL Red Cell Distribution Width 18.6 H 11.8-14.3 % Platelet Count 44 L 140-450 10^3/uL Mean Platelet Volume 9.4 6.9-10.8 fL Neutrophils (%) (Auto) 37.0-80.0 % Lymphocytes (%) (Auto) 10.0-50.0 % Monocytes (%) (Auto) 0.0-12.0 % Basophils (%) (Auto) 0.0-2.0 % Neutrophils # (Auto) 1.6-8.6 10 ^3/uL Lymphocytes # (Auto) 0.4-5.4 10 ^3/uL Monocytes # (Auto) 0-1.3 10 ^3/uL Differential Total Cells Counted 100.0 100 Neutrophils % (Manual) 92 H 37.0-80.0 Band Neutrophils % (Manual) 3 Lymphocytes % (Manual) 2 L 10.0-50.0 Monocytes % (Manual) 3 0-12 Eosinophils % (Manual) 0 0-7 Basophils % (Manual) 0 0.0-2.0 Metamyelocytes % (manual) 0 Myelocytes % (Manual) 0 Promyelocytes % (Manual) 0 Blast Cells % (Manual) 0 Nucleated Red Blood Cells 1.0 % Reactive Lymphocytes 0 Platelet Estimate Decreased Sodium Level 138 136-145 mmol/L Potassium Level 4.9 3.5-5.1 mmol/L Chloride Level 98 98-107 mmol/L Carbon Dioxide Level 25 20-31 mmol/L Anion Gap 15 5-15 Blood Urea Nitrogen 53 #H 9-23 mg/dL Creatinine 3.87 H 0.700-1.30 mg/dL Glomerular Filtration Rate Calc 15 >90 mL/min BUN/Creatinine Ratio 13.7 10.0-20.0 Serum Glucose 183 H 74-106 mg/dL Calcium Level 8.8 8.7-10.4 mg/dL Phosphorus Level 5.6 H 2.4-5.1 mg/dL Total Bilirubin 1.7 H 0.2-1.0 mg/dL Aspartate Amino Transferase (AST) 40 13-40 U/L Alanine Aminotransferase (ALT) 30 7-40 U/L Alkaline Phosphatase 99 46-116 U/L Total Protein 6.0 5.7-8.2 g/dL Albumin 3.1 L 3.2-4.8 g/dL POC Glucose 180 H 70-106 mg/dl Blood Gas Critical Value Read Back Yes Blood Gas Notified Whom Dr. mccall Blood Gas Notified Time [id number] Blood Gas Notified By Veneer Marker jocy massey Test 05/09/24 18:25 05/09/24 16:35 05/09/24 11:46 Range/Units POC Glucose 136 H 167 H 70-106 mg/dl Blood Gas Specimen Type Arterial Blood Gas Sample Site Left radial Blood Gas Patient Temperature 37.0 Arterial Blood Date Drawn [id number] Arterial Blood pH 7.187 *L 7.350-7.450 Arterial Blood Partial Pressure CO2 75.5 *H 35.0-48.0 mmHg Arterial Blood Partial Pressure O2 65.6 L 83.0-108.0 mmHg Arterial Blood HCO3 28.0 21.0-28.0 mmol/L Arterial Blood Oxygen Saturation 87.0 L 94.0-98.0 % Arterial Blood Base Excess -1.9 -2.0-3.0 mmol/L Arterial Blood Oxyhemoglobin 85.5 L 94.0-98.0 % Arterial Blood Carboxyhemoglobin 1.3 0.5-1.5 % Arterial Blood Methemoglobin 0.4 0.0-1.5 % Prosper Test Modified Blood Gas Total Hemoglobin 12.80 L 13.5-17.5 g/dL Blood Gas Liter Flow 4.00 Blood Gas Modality Oxymizer FiO2 % 41.0 Blood Gas Critical Value Read Back Yes Blood Gas Notified Whom garry Mccall md. Blood Gas Notified Time [id number] Blood Gas Notified By pasha Maharaj. Microbiology Date/Time Source Procedure Growth Status 05/05/24 05:10 Nose MRSA Screen - Final Complete 05/02/24 13:10 Pleural Fluid Gram Stain - Final Complete 05/02/24 13:10 Pleural Fluid Body Fluid Culture - Final Complete 05/02/24 08:07 Blood Blood Culture - Final Staphylococcus lugdunensis Complete GARRY MCCALL RESIDENT May 10, 2024 09:34
--- NOTE | 2024-05-10 10:46 | DVHPN2 ---
Progress Note Date Seen: May 10, 2024 Has the PT tested + for MRSA If YES, has PT been informed?: No Medical Necessity Reason Pt with a Central, PICC or Fol: Yes The following are medically ne: Chavez Catheter Subjective Review of Systems: RESPIRATORY:Abnormal Other Systems: Patient seen and examined by myself today in follow-up, patient remained on BiPAP Objective vital signs Vital Sign Date Time Temp Pulse Resp B/P (MAP) Pulse Ox O2 Delivery O2 Flow Rate FiO2 05/10/24 09:30 102 95 Facial BiPAP Mask 60 05/10/24 09:00 98.5 21 105/56 (72) 98.5 05/09/24 20:00 8 Total Intake and Output 05/09/24 05/09/24 05/10/24 15:00 23:00 07:00 Intake Total 100 ml 0 ml Output Total 10 ml 0 ml Balance 90 ml 0 ml medications Current Medications Medications Dose Ordered Sig/Leonor Route Start Time Stop Time Status Last Admin Dose Admin Acetaminophen 650 mg Q6HP PRN PO 05/02/24 01:45 Morphine Sulfate 2 mg Q4HPRN PRN IV 05/02/24 01:45 05/07/24 22:20 2 MG Nitroglycerin 0.4 mg Q5MINP PRN SL 05/02/24 01:45 Guaifenesin 200 mg Q4HP PRN GT 05/02/24 08:30 Diagnostic Test (Pha) 1 strip Q6HR 05/02/24 18:00 05/10/24 05:56 1 STRIP Insulin Human Regular Q6HR SC 05/02/24 18:00 05/10/24 05:55 3 UNITS Dextrose 50 ml UD PRN IV 05/02/24 13:00 Nystatin 1 applic BID TOP 05/02/24 22:00 05/10/24 08:57 1 APPLIC Levalbuterol HCl 1.25 mg Q6HPRN PRN NEB 05/03/24 14:15 05/10/24 07:50 1.25 MG Erythromycin 1 applic Q4HR OP 05/04/24 02:00 05/10/24 08:58 1 APPLIC Furosemide 60 mg DAILY IV 05/04/24 10:00 05/10/24 08:59 60 MG Methylprednisolone Sodium Succinate 40 mg BID IV 05/06/24 22:00 05/10/24 08:58 40 MG Ipratropium [place] 0.5 mg Q6HWA NEB 05/06/24 18:00 05/10/24 07:50 0.5 MG Acetylcysteine 100 mg Q6HWA NEB 05/06/24 18:00 05/10/24 07:50 100 MG Meropenem 50 ml @ 17 mls/hr Q12H IV 05/08/24 06:00 05/10/24 05:54 17 MLS/HR Vancomycin HCl 0 ml @ 0 mls/hr UD IV 05/09/24 16:15 Examination: LUNGS:Normal, CVS:Normal, MSK:Normal laboratory and microbiology Laboratory Tests 05/10/24 06:22 Test 05/10/24 06:22 Range/Units Serum Glucose 183 H 74-106 mg/dL Microbiology Date/Time Source Procedure Growth Status 05/05/24 05:10 Nose MRSA Screen - Final Complete 05/02/24 13:10 Pleural Fluid Gram Stain - Final Complete 05/02/24 13:10 Pleural Fluid Body Fluid Culture - Final Complete 05/02/24 08:07 Blood Blood Culture - Final Staphylococcus lugdunensis Complete Problem List/Assessment/Plan Problem List/Assessment/Plan Acute kidney injury suspect acute tubular necrosis in the setting of contrast exposure and vancomycin nephrotoxicity , oliguric requiring intermittent hemodialysis Creatinine was 0.9 on 05/02/2024 Acute hypercarbic respiratory failure, on BiPAP COPD Acidosis Atrial fibrillation with rapid ventricular response sepsis due to staph bacteremia Recommendation Hemodialysis tomorrow Strict I&Os Renal diet IV antibiotics We will continue to follow up Plan discussed with: Patient Dietary Evaluation Review Recommendations by RD: Dietary education by RD, Protein Supplementation Comments: 1) Initiate Omar @ 1 pk bid 2) Encourage good PO intake 3) Refer to outpatient RD/[facility] for weight management 4) Continue to monitor appetite, labs, and skin integrity Expected Outcomes/Goals: 1) appetite and labs to improve 2) wound to improve 3) f/u in 3-5 days BRUNO MASON MD May 10, 2024 10:46
[2024-05-10] MEDS: MIDODRINE HCL 10 MG TAB PO SCH (12:00)
--- NOTE | 2024-05-10 13:14 | DVH ---
Exam: US BLADDER History: DECREASED URINE OUTPUT Comparison: None Date: 05/10/2024 12:46 PM Technique: Grayscale and color Doppler ultrasound of the pelvis was obtained. Findings/Impression: Chavez catheter is visualized in a decompressed urinary bladder.
[2024-05-11] VITALS (20 sets, daily range): BP systolic 111–127; BP diastolic 52–68; PULSE 76–111; RESP 18–26; TEMP 96.1–99.1; O2SAT 93–98
--- NOTE | 2024-05-11 05:47 | DVH ---
CHEST RADIOGRAPH Indication: chest congestion/ aspiration Technique: Single frontal view of the chest was obtained Comparison: XY CHEST PORTABLE on DOS: 05/10/24, XY CHEST XRAY 1 VIEW on DOS: 05/08/24, XY CHEST PORTABL E on DOS: 05/06/24, XY CHEST PORTABLE on DOS: 05/06/24, XY CHEST XRAY 1 VIEW on DOS: 05/03/24, XY CHEST PORTABLE on DOS: 05/10/24 FINDINGS: Lines and Tubes: Left central venous catheter terminating in the superior vena cava is unchanged. Lungs: Pulmonary edema is similar to prior study. Superimposed pneumonia is not excluded. Pleura: No effusion. No pneumothorax. Cardiomediastinal contours: Stable. Bones: No acute osseous abnormality. IMPRESSION: 1. Stable pulmonary edema. Superimposed pneumonia is not excluded.
[2024-05-11 08:06] LABS: Base Excess -1.1 mmol/L (-2.0-3.0)
[2024-05-11 10:18] LABS: Eosinophils # (auto) 0 10 ^3/uL (0-0.8); Platelet Count (auto) 43 10^3/uL (140-450)
[2024-05-11 10:20] LABS: Basophils # (auto) 0.1 10 ^3/uL (0-0.2); Basophils % (auto) 0.3 % (0.0-2.0); Hematocrit 35.4 % (41.0-53.0); Hemoglobin 11.5 g/dL (13.5-17.5); Lymphocytes # (auto) 0.3 10 ^3/uL (0.4-5.4); Lymphocytes % (auto) 1.2 % (10.0-50.0); Mean Corpuscular Hemoglobin 32.5 pg (28.0-32.0); Mean Corpuscular Hgb Conc. 32.5 g/dL (32.0-36.0); Mean Corpuscular Volume 99.8 fL (80.0-100.0); Monocytes # (auto) 1.4 10 ^3/uL (0-1.3); Neutrophils # (auto) 25.4 10 ^3/uL (1.6-8.6); Neutrophils % (auto) 93.5 % (37.0-80.0); Nucleated Red Blood Cells % 2.2 %; Red Blood Cells 3.55 10^6/uL (4.5-5.90); Red Cell Distribution Width 18.7 % (11.8-14.3); White Blood Cell 27.2 10^3/uL (4.4-10.8)
--- NOTE | 2024-05-11 10:29 | DVHPN2 ---
Progress Note Date Seen: May 11, 2024 Has the PT tested + for MRSA If YES, has PT been informed?: No Medical Necessity Reason Pt with a Central, PICC or Fol: Yes The following are medically ne: Chavez Catheter Subjective Patient reports: No new complaints Other Systems: Patient seen and examined by myself today in follow-up Patient examined hemodialysis, blood pressure stable Objective vital signs Vital Sign Date Time Temp Pulse Resp B/P (MAP) Pulse Ox O2 Delivery O2 Flow Rate FiO2 05/11/24 09:09 93 20 127/52 (77) 96 05/11/24 08:47 40 05/11/24 08:08 Facial BiPAP Mask 05/11/24 05:00 96.1 96.1 05/09/24 20:00 8 Total Intake and Output 05/10/24 05/10/24 05/11/24 15:00 23:00 07:00 Intake Total 50 ml 248 ml 183.26 ml Output Total 0 ml Balance 50 ml 248 ml 183.26 ml medications Current Medications Medications Dose Ordered Sig/Leonor Route Start Time Stop Time Status Last Admin Dose Admin Acetaminophen 650 mg Q6HP PRN PO 05/02/24 01:45 Morphine Sulfate 2 mg Q4HPRN PRN IV 05/02/24 01:45 05/07/24 22:20 2 MG Nitroglycerin 0.4 mg Q5MINP PRN SL 05/02/24 01:45 Guaifenesin 200 mg Q4HP PRN GT 05/02/24 08:30 Diagnostic Test (Pha) 1 strip Q6HR 05/02/24 18:00 05/11/24 05:32 1 STRIP Insulin Human Regular Q6HR SC 05/02/24 18:00 05/11/24 05:51 3 UNITS Dextrose 50 ml UD PRN IV 05/02/24 13:00 Nystatin 1 applic BID TOP 05/02/24 22:00 05/10/24 22:26 1 APPLIC Levalbuterol HCl 1.25 mg Q6HPRN PRN NEB 05/03/24 14:15 05/11/24 05:50 1.25 MG Erythromycin 1 applic Q4HR OP 05/04/24 02:00 05/11/24 05:34 1 APPLIC Furosemide 60 mg DAILY IV 05/04/24 10:00 05/10/24 08:59 60 MG Methylprednisolone Sodium Succinate 40 mg BID IV 05/06/24 22:00 05/10/24 22:26 40 MG Ipratropium [place] 0.5 mg Q6HWA NEB 05/06/24 18:00 05/11/24 05:49 0.5 MG Acetylcysteine 100 mg Q6HWA [facility] 05/06/24 18:00 05/11/24 05:50 100 MG Meropenem 50 ml @ 17 mls/hr Q12H IV 05/08/24 06:00 05/11/24 05:32 17 MLS/HR Vancomycin HCl 0 ml @ 0 mls/hr UD IV 05/09/24 16:15 Midodrine 10 mg TID@0600,1200,1800 PO 05/10/24 12:00 Examination: LUNGS:Normal, CVS:Normal, MSK:Normal laboratory and microbiology Laboratory Tests 05/11/24 09:50 Test 05/11/24 09:50 Range/Units Serum Glucose Pending Microbiology Date/Time Source Procedure Growth Status 05/05/24 05:10 Nose MRSA Screen - Final Complete 05/02/24 13:10 Pleural Fluid Gram Stain - Final Complete 05/02/24 13:10 Pleural Fluid Body Fluid Culture - Final Complete 05/02/24 08:07 Blood Blood Culture - Final Staphylococcus lugdunensis Complete Problem List/Assessment/Plan Problem List/Assessment/Plan Acute kidney injury suspect acute tubular necrosis in the setting of contrast exposure and vancomycin nephrotoxicity , oliguric requiring intermittent hemodialysis Creatinine was 0.9 on 05/02/2024 Acute hypercarbic respiratory failure, on BiPAP COPD exacerbation Acidosis Atrial fibrillation with rapid ventricular response sepsis due to staph bacteremia Recommendation Continue with UF 1-2 L as tolerated Patient remained anuric Strict I&Os Renal diet IV antibiotics We will continue to follow up Plan discussed with: Patient My Orders My Orders Orders - BRUNO MASON MD Procedure Category Date Status Time Midodrine Tablet PHA 05/10/24 In Process (Proamatine Tablet) 12:00 Hemodialysis Orders ORDERS 05/11/24 Transmitted 07:00 Dialysis Nursing KIRSTEN 05/11/24 In Process Message 07:00 Document Fluid Input KIRSTEN 05/11/24 In Process And Outpu 07:00 Dietary Evaluation Review Recommendations by RD: Dietary education by RD, Protein Supplementation Comments: 1) Initiate Omar @ 1 pk bid 2) Encourage good PO intake 3) Refer to outpatient RD/CDCES for weight management 4) Continue to monitor appetite, labs, and skin integrity Expected Outcomes/Goals: 1) appetite and labs to improve 2) wound to improve 3) f/u in 3-5 days BRUNO MASON MD May 11, 2024 10:29
[2024-05-11 10:40] LABS: Alanine Aminotransferase 28 U/L (7-40); Alkaline Phosphatase 106 U/L (46-116); Anion Gap 13 (5-15); Aspartate Aminotransferase 24 U/L (13-40); BUN/Creatinine Ratio 15.7 (10.0-20.0); Carbon Dioxide 29 mmol/L (20-31); Potassium 5.1 mmol/L (3.5-5.1); Sodium 139 mmol/L (136-145); Total Protein 5.9 g/dL (5.7-8.2)
[2024-05-11 10:46] LABS: Bilirubin, Total 1.5 mg/dL (0.2-1.0); Chloride 97 mmol/L (98-107); Glucose 207 mg/dL (74-106)
[2024-05-11 10:47] LABS: Blood Urea Nitrogen 80 mg/dL (9-23)
[2024-05-11 10:59] LABS: Base Excess -0.8 mmol/L (-2.0-3.0)
--- NOTE | 2024-05-11 13:20 | DVHPN2 ---
Reviewed: Care Plan, H&P, Labs, Medications, Previous Orders, Radiology, Other Changes from previous H/P or p: No Changes General: Per HPI Eyes: No Pain, No Vision change, No Conjunctivae inflammation, No Eyelid inflammation, No Other, No Redness ENT: No Ear pain, No Ear discharge, No Nose pain, No Nose discharge, No Nose congestion, No Mouth pain, No Mouth swelling, No Throat pain, No Throat swelling, No Other Cardiovascular: Edema Respiratory: Shortness of breath, Wheezing Gastrointestinal: No Nausea, No Vomiting, No Abdominal Pain, No Diarrhea, No Constipation, No Melena, No Hematochezia, No Other Genitourinary: No Dysuria, No Frequency, No Incontinence, No Hematuria, No Retention, No Other Musculoskeletal: No other, No neck pain, No shoulder pain, No arm pain, No back pain, No hand pain, No leg pain, No foot pain Skin: Lesions, Bruising Objective Vitals Vital Signs Date Time Temp Pulse Resp B/P (MAP) Pulse Ox O2 Delivery O2 Flow Rate FiO2 05/11/24 12:24 98 94 Facial BiPAP Mask 40 05/11/24 12:22 18 05/11/24 10:56 127/77 05/11/24 05:00 96.1 96.1 05/09/24 20:00 8 Intake/Output Intake and Output 05/11/24 07:00 Intake Total 481.26 ml Output Total 0 ml Balance 481.26 ml Intake Oral 0 ml IV Total 481.26 ml Output Urine Total 0 ml Medications Current Medications Medications Dose Ordered Sig/Leonor Route Start Time Stop Time Status Last Admin Dose Admin Acetaminophen 650 mg Q6HP PRN PO 05/02/24 01:45 Morphine Sulfate 2 mg Q4HPRN PRN IV 05/02/24 01:45 05/07/24 22:20 2 MG Nitroglycerin 0.4 mg Q5MINP PRN SL 05/02/24 01:45 Guaifenesin 200 mg Q4HP PRN GT 05/02/24 08:30 Diagnostic Test (Pha) 1 strip Q6HR 05/02/24 18:00 05/11/24 11:29 1 STRIP Insulin Human Regular Q6HR SC 05/02/24 18:00 05/11/24 11:36 4 UNITS Dextrose 50 ml UD PRN IV 05/02/24 13:00 Nystatin 1 applic BID TOP 05/02/24 22:00 05/11/24 10:54 1 APPLIC Levalbuterol HCl 1.25 mg Q6HPRN PRN NEB 05/03/24 14:15 05/11/24 12:22 1.25 MG Erythromycin 1 applic Q4HR OP 05/04/24 02:00 05/11/24 10:57 1 APPLIC Furosemide 60 mg DAILY IV 05/04/24 10:00 05/11/24 10:56 60 MG Methylprednisolone Sodium Succinate 40 mg BID IV 05/06/24 22:00 05/11/24 10:55 40 MG Ipratropium [place] 0.5 mg Q6HWA [facility] 05/06/24 18:00 05/11/24 05:49 0.5 MG Acetylcysteine 100 mg Q6HWA [facility] 05/06/24 18:00 05/11/24 12:22 100 MG Meropenem 50 ml @ 17 mls/hr Q12H IV 05/08/24 06:00 05/11/24 05:32 17 MLS/HR Vancomycin HCl 0 ml @ 0 mls/hr UD IV 05/09/24 16:15 Midodrine 10 mg TID@0600,1200,1800 PO 05/10/24 12:00 Laboratory Results Laboratory Tests 05/11/24 09:50 Chemistry Test 05/11/24 09:50 Albumin 3.0 g/dL (3.2-4.8) L Calcium Level 9.0 mg/dL (8.7-10.4) Total Protein 5.9 g/dL (5.7-8.2) LFT Test 05/11/24 09:50 Alanine Aminotransferase (ALT) 28 U/L (7-40) Alkaline Phosphatase 106 U/L (46-116) Aspartate Amino Transferase (AST) 24 U/L (13-40) Total Bilirubin 1.5 mg/dL (0.2-1.0) H Urinalysis Test 05/07/24 05:00 Urine Color [place] (Yellow) H Urine Clarity Turbid (Clear) H Urine pH 5.0 (5.0-9.0) Urine Specific [place] 1.030 (1.001-1.035) Urine Protein 1+ (Negative) H Urine Ketones Trace (Negative) Urine Blood 3+ /uL (Negative) H Urine Nitrite Negative (Negative) Urine Bilirubin Negative (Negative) Urine Urobilinogen 3 mg/dL (Negative) H Urine Leukocyte Esterase 2+ /uL (Negative) Urine RBC 6 /hpf (0 - 3) Urine Microscopic WBC 30 /HPF (0-3) H Urine Squamous Epithelial Cells Few /hpf (<5) Urine Bacteria Few /hpf (None Seen) H Urine Creatinine 96.62 mg/dL (30.0-125.0) Urine Sodium 32 mmol/L (40-220) L Urine Glucose 2+ mg/dL (Normal) H Blood Gas Results Test 05/11/24 07:57 05/11/24 10:05 Arterial Blood pH 7.232 (7.350-7.450) 7.266 (7.350-7.450) FiO2 % 40.0 40.0 Microbiology Microbiology Date/Time Source Procedure Growth Status 05/05/24 05:10 Nose MRSA Screen - Final Complete 05/02/24 13:10 Pleural Fluid Gram Stain - Final Complete 05/02/24 13:10 Pleural Fluid Body Fluid Culture - Final Complete 05/02/24 08:07 Blood Blood Culture - Final Staphylococcus lugdunensis Complete Assessment/Plan Assessment/Plan # metabolic encephalopathy: Likely due to retention of CO2, metabolic encephalopathy due to underlying infection likely contributing. This morning post BiPAP patient had improved ABG and had more conversations. # delirium: In-hospital patient has hyperactive delirium with agitation, please continue supportive care, frequent reorientation, sleep-wake cycle. If possible please move with the patient to the room as soon as possible. # New onset of AFib RVR: Noted on EKG and telemetry, started the patient on amiodarone drip, as per RACE II trial we will try to keep the heart rate below 110. Partially heart rate high due to underlying sepsis. Cardiology consulted looking for input. # possible pericardial effusion, no tamponade: Pending echo/TTE. # essential hypertension: [place] blood pressure 130/ 80 or below. We will hold antihypertensives for now in the setting of sepsis/ Hemodynamic instability # Possible diastolic heart failure: BNP mildly elevated in 500s, pending TTE # heart failure with reduced ejection fraction 20%, cause unknown, cardiology consulted looking for input, not a candidate for GDM T, but started the patient on IV Lasix 60 daily. # past 40 pack-year smoking history, quit less than 15 years back. # Known COPD: Questionable noncompliance, continue levalbuterol and ipratropium therapeutic breathing treatment, influenza and COVID negative # Respiratory deconditioning secondary due to previous COVID pneumonia # chronic hypoxic /hypercapnic respiratory failure : baseline oxygen 4-5 L [id number], We will try to keep the SpO2 between 88-92 % # Left-sided massive pleural effusion: Status post removal of 3800+ mL of pleural fluid by IR. Samples sent, check for serum LDH, protein, light's criteria. Follow the result. # Respiratory acidosis, improving with BiPAP, as needed anxiety medications. # acute Gram-positive Gram-negative bacterial pneumonia: Check MRSA, check sputum culture, keep the patient on broad-spectrum antibiotics with covering both Gram-negative and Gram-positive. # Likely, re-expansion pulmonary edema: Likely due to removal of moderate amount of pleural fluid . Please start IV methylprednisolone. Continue levalbuterol and # GERD/ GI prophylaxis:ppi prophylaxis to continue # Mild hyperbilirubinemia: Abdominal finding unremarkable. Follow up CMP daily. # intertrigo, continue nystatin powder # sepsis: Likely due to community-acquired pneumonia, continue IV vancomycin and meropenem for now, pancultures pending follow closely. # mild thrombocytopenia: Close monitoring of H&H, platelets, hold heparin and anticoagulation. Follow up platelets # Patient is likely intravascularly dry, carbon dioxide 34, due to contraction alkalosis at this point. Check CMP tomorrow. # ?previous history of diabetes: HbA1c 5.5 no treatment needed at this point: [place] BG in-hospital 140-180 # peripheral arterial disease: Bilateral lower limb Extremely poor vasculature, vascular surgery consulted. 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 Code status: Modified code status with DNI, ACLS and chest compression without defibrillation. Discussed with the patient and patient's caregiver, paperwork in file. Patient's immediate family is sister with whom the patient has spoke last time more than 2 years back, who will come from [place] to visit him the earliest possible on upcoming Sunday 05/0705/04/2024: continue on bipap, drip and Levophed awaiting for ICU bed continue with heparin drip and amiodarone 05/05/2024: continue with drips discussed with nursing at bedside discussed with family member 05/11/2024 remains to be on Clinimix Plan discussed with: Other (nursing staff) Date of Service: May 11, 2024 Billing Provider: LAKESHA HARE DO Common Visit Codes: [id number] INP/OBS CARE(HIGH) LAKESHA HARE DO May 11, 2024 13:20
[2024-05-11 15:20] LABS: Base Excess 1.1 mmol/L (-2.0-3.0)
[2024-05-11] MEDS: LACTULOSE 20Gm/30ML SOLN PO ONE (16:22)
[2024-05-11] MEDS ORDERED: LACTULOSE 20Gm/30ML SOLN PO SCH ×2 (17:00→22:00)
[2024-05-11] MEDS: FLEET ENEMA(ADULT) 135 ML PR ONE (17:37)
[2024-05-11] MEDS: LEVALBUTEROL HCL 1.25 MG/3 ML NEB NEB SCH (18:40)
[2024-05-11] MEDS ORDERED: ALBUMIN 25% 200 ML IV ONE (18:45)
--- NOTE | 2024-05-11 19:48 | DVHPN2 ---
Progress Note - Dictate Date Seen: May 11, 2024 Has the PT tested + for MRSA If YES, has PT been informed?: No Medical Necessity Reason Pt with a Central, PICC or Fol: Yes The following are medically ne: Delacruz Catheter Reason for delacruz catheter: Strict I&O Subjective Patient seen and examined at bedside. On BiPAP Overnight events reviewed. vital signs Vital Sign Date Time Temp Pulse Resp B/P (MAP) Pulse Ox O2 Delivery O2 Flow Rate FiO2 05/11/24 18:40 95 23 95 05/11/24 17:40 97.6 115/68 (84) 97.6 05/11/24 16:15 Facial BiPAP Mask 40 05/09/24 20:00 8 Total Intake and Output 05/10/24 05/10/24 05/11/24 15:00 23:00 07:00 Intake Total 50 ml 248 ml 183.26 ml Output Total 0 ml Balance 50 ml 248 ml 183.26 ml medications Current Medications Medications Dose Ordered Sig/Leonor Route Start Time Stop Time Status Last Admin Dose Admin Acetaminophen 650 mg Q6HP PRN PO 05/02/24 01:45 Morphine Sulfate 2 mg Q4HPRN PRN IV 05/02/24 01:45 05/07/24 22:20 2 MG Nitroglycerin 0.4 mg Q5MINP PRN SL 05/02/24 01:45 Guaifenesin 200 mg Q4HP PRN GT 05/02/24 08:30 Diagnostic Test (Pha) 1 strip Q6HR 05/02/24 18:00 05/11/24 16:34 1 STRIP Insulin Human Regular Q6HR SC 05/02/24 18:00 05/11/24 16:42 4 UNITS Dextrose 50 ml UD PRN IV 05/02/24 13:00 Nystatin 1 applic BID TOP 05/02/24 22:00 05/11/24 10:54 1 APPLIC Erythromycin 1 applic Q4HR OP 05/04/24 02:00 05/11/24 15:35 1 APPLIC Furosemide 60 mg DAILY IV 05/04/24 10:00 05/11/24 10:56 60 MG Methylprednisolone Sodium Succinate 40 mg BID IV 05/06/24 22:00 05/11/24 10:55 40 MG Acetylcysteine 100 mg Q6HWA NEB 05/06/24 18:00 05/11/24 18:40 100 MG Meropenem 50 ml @ 17 mls/hr Q12H IV 05/08/24 06:00 05/11/24 16:59 17 MLS/HR Vancomycin HCl 0 ml @ 0 mls/hr UD IV 05/09/24 16:15 Midodrine 10 mg TID@0600,1200,1800 PO 05/10/24 12:00 Levalbuterol HCl 1.25 mg Q6HR NEB 05/11/24 18:00 05/11/24 18:40 1.25 MG Ipratropium [place] 0.5 mg Q6HPRN PRN NEB 05/11/24 18:00 Lactulose 30 ml BIDP PRN PO 05/11/24 22:00 objective Gen.: Patient lying in bed in no apparent distress. On BiPAP. Head: Normocephalic, atraumatic. Eyes: EOMI/PERRLA. Ears: Normal hearing. Normal anatomy. Neck/trachea: Trachea midline, supple. Nose: Normal external anatomy. Mouth: Moist mucous membranes. Chest: Decreased air entry bilaterally. No wheezing or rhonchi. Cardiovascular: Positive S1, positive S2. Regular rate and rhythm. Abdomen: Positive bowel sounds in all 4 quadrants. Soft, non-tender, non- distended. : Deferred. Rectal: Deferred. Skin: Warm, dry. Intact. Extremities: 2+ radial pulses bilaterally. No lower extremity edema. Neuro: Awake, alert, oriented x3. No gross motor or sensory deficits. Cranial nerves II through XII intact. Gait not assessed. laboratory and microbiology Laboratory Tests 05/11/24 09:50 Test 05/11/24 09:50 Range/Units Serum Glucose 207 H 74-106 mg/dL Assessment/Plan Impression: Pulmonary edema Pleural effusion, s/p thoracentesis Acute exacerbation of COPD Pneumonia CKD vs DEREJE Events: Remains on BiPAP with IPAP 15, EPAP 5 FiO2 40% Increase IPAP to 18 Continue antibiotics F/u cultures Continue IV steroids Continue bronchodilators Amiodarone drip Cardiology recs appreciated Diurese as tolerated w/ Lasix Monitor renal function Monitor electrolytes. Supplement as necessary. Monitor ins and outs. HD catheter in place - HD per Nephrology Labs and imaging reviewed. Rest of plan as noted below. Plan: Continue BiPAP Titrate Fi02 to sats 90% or above Continue supportive care Antibiotics for pneumonia F/u cultures IV steroids Continue bronchodilators Amiodarone drip Cardiology recs appreciated Diurese Monitor renal function Monitor electrolytes. Supplement as necessary. Monitor ins and outs. HD per Nephrology Follow up Nephrology recs DVT prophylaxis. Full code Prognosis: Poor given patient's multiple co-morbidities. Condition: Critical Rest of plan per hospitalist and other consultants. A total of 35 minutes of critical care time was spent reviewing the patient record, examining the patient, making a diagnostic and therapeutic plan, discussing this plan with the medical personnel, following up on diagnostic studies and following the patient for clinical stability excluding any and all procedures. At least 50% of this time was spent in direct, [id number] contact. Thank you for allowing me to participate in this patient's care. Further recommendations will depend on the patient's clinical course. Please do not hesitate to contact me if you have any questions or concerns. This medical document was created using an electronic medical record system with [employer] dictation system. Although these documentations are being carefully reviewed, there may still be some phonetic and typographical changes. The errors are purely typographical, due to imperfection on the software program, and do not reflect any compromise in the patient's medical care. Dietary Evaluation Review Recommendations by RD: Dietary education by RD, Protein Supplementation Comments: 1) Initiate Omar @ 1 pk bid 2) Encourage good PO intake 3) Refer to outpatient RD/CDCES for weight management 4) Continue to monitor appetite, labs, and skin integrity Expected Outcomes/Goals: 1) appetite and labs to improve 2) wound to improve 3) f/u in 3-5 days Plan discussed with: Other (TRAN Stapleton) Critical Care Time(min): 35 TOM YEH MD May 11, 2024 19:48
[2024-05-11] MEDS ORDERED: LACTULOSE 20Gm/30ML SOLN PO PRN (22:00)
[2024-05-12] VITALS (34 sets, daily range): BP systolic 58–124; BP diastolic 25–64; PULSE 95–120; RESP 11–22; TEMP 96.8–98.7; O2SAT 94–100
[2024-05-12] MEDS: IPRATROPIUM BROM 0.5 MG/2.5ML INH SOL NEB PRN (06:13)
[2024-05-12 07:07] LABS: Anion Gap 14 (5-15); Calcium 9.2 mg/dL (8.7-10.4); Carbon Dioxide 27 mmol/L (20-31); Chloride 99 mmol/L (98-107); Potassium 4.1 mmol/L (3.5-5.1); Sodium 140 mmol/L (136-145)
[2024-05-12 07:53] LABS: Glucose 158 mg/dL (74-106)
[2024-05-12 07:55] LABS: BUN/Creatinine Ratio 14.7 (10.0-20.0); Blood Urea Nitrogen 53 mg/dL (9-23)
[2024-05-12] MEDS: VANCOMYCIN 1GM/250ML KIT 250 ML IV ONE (10:38)
--- NOTE | 2024-05-12 11:13 | DVHPN2 ---
Progress Note Date Seen: May 12, 2024 Has the PT tested + for MRSA If YES, has PT been informed?: No Medical Necessity Reason Pt with a Central, PICC or Fol: Yes The following are medically ne: Delacruz Catheter Reason for delacruz catheter: Strict I&O Subjective Review of Systems: RESPIRATORY:Abnormal Other Systems: Patient seen and examined by myself today in follow-up Objective vital signs Vital Sign Date Time Temp Pulse Resp B/P (MAP) Pulse Ox O2 Delivery O2 Flow Rate FiO2 05/12/24 09:49 96 97 Facial BiPAP Mask 40 05/12/24 09:10 103/62 05/12/24 09:00 97.5 20 97.5 Total Intake and Output 05/11/24 05/11/24 05/12/24 15:00 23:00 07:00 Intake Total 50 ml 266 ml Output Total 0 ml 0 ml Balance 50 ml 266 ml medications Current Medications Medications Dose Ordered Sig/Leonor Route Start Time Stop Time Status Last Admin Dose Admin Acetaminophen 650 mg Q6HP PRN PO 05/02/24 01:45 Morphine Sulfate 2 mg Q4HPRN PRN IV 05/02/24 01:45 05/07/24 22:20 2 MG Nitroglycerin 0.4 mg Q5MINP PRN SL 05/02/24 01:45 Guaifenesin 200 mg Q4HP PRN GT 05/02/24 08:30 Diagnostic Test (Pha) 1 strip Q6HR 05/02/24 18:00 05/12/24 06:56 1 STRIP Insulin Human Regular Q6HR SC 05/02/24 18:00 05/12/24 06:56 2 UNITS Dextrose 50 ml UD PRN IV 05/02/24 13:00 Nystatin 1 applic BID TOP 05/02/24 22:00 05/12/24 09:08 1 APPLIC Erythromycin 1 applic Q4HR OP 05/04/24 02:00 05/12/24 09:09 1 APPLIC Furosemide 60 mg DAILY IV 05/04/24 10:00 05/12/24 09:10 60 MG Methylprednisolone Sodium Succinate 40 mg BID IV 05/06/24 22:00 05/12/24 09:09 40 MG Acetylcysteine 100 mg Q6HWA NEB 05/06/24 18:00 05/12/24 06:14 100 MG Meropenem 50 ml @ 17 mls/hr Q12H IV 05/08/24 06:00 05/12/24 06:52 17 MLS/HR Vancomycin HCl 0 ml @ 0 mls/hr UD IV 05/09/24 16:15 Midodrine 10 mg TID@0600,1200,1800 PO 05/10/24 12:00 Levalbuterol HCl 1.25 mg Q6HR NEB 05/11/24 18:00 05/12/24 06:14 1.25 MG Ipratropium [place] 0.5 mg Q6HPRN PRN NEB 05/11/24 18:00 05/12/24 06:13 0.5 MG Lactulose 30 ml BIDP PRN PO 05/11/24 22:00 Examination: LUNGS:Normal, CVS:Normal, MSK:Normal laboratory and microbiology Laboratory Tests 05/12/24 05:43 05/11/24 09:50 Test 05/12/24 05:43 Range/Units Serum Glucose 158 H 74-106 mg/dL Microbiology Date/Time Source Procedure Growth Status 05/05/24 05:10 Nose MRSA Screen - Final Complete 05/02/24 13:10 Pleural Fluid Gram Stain - Final Complete 05/02/24 13:10 Pleural Fluid Body Fluid Culture - Final Complete 05/02/24 08:07 Blood Blood Culture - Final Staphylococcus lugdunensis Complete Problem List/Assessment/Plan Problem List/Assessment/Plan Acute kidney injury suspect acute tubular necrosis in the setting of contrast exposure and vancomycin nephrotoxicity , oliguric requiring intermittent hemodialysis Creatinine was 0.9 on 05/02/2024 Acute hypercarbic respiratory failure, on BiPAP COPD exacerbation Acidosis Atrial fibrillation with rapid ventricular response sepsis due to staph bacteremia Recommendation Next hemodialysis 05/14 Patient remained anuric Strict I&Os Renal diet IV antibiotics We will continue to follow up Plan discussed with: Patient Dietary Evaluation Review Recommendations by RD: Dietary education by RD, Protein Supplementation Comments: 1) Initiate Omar @ 1 pk bid 2) Encourage good PO intake 3) Refer to outpatient RD/CDCES for weight management 4) Continue to monitor appetite, labs, and skin integrity Expected Outcomes/Goals: 1) appetite and labs to improve 2) wound to improve 3) f/u in 3-5 days BRUNO MASON MD May 12, 2024 11:13
[2024-05-12] MEDS ORDERED: MID10T PO (14:50)
[2024-05-12] MEDS ORDERED: CLINIMIX PER PHARMACY 0 ML IV SCH (17:00)
[2024-05-12] MEDS: NOREPINEPHRINE 8 MG/250ML KIT 250 ML IV SCH (18:50)
[2024-05-12] MEDS: SODIUM CHLORIDE 0.9% 500 ML IV ONE (19:00)
--- NOTE | 2024-05-12 19:17 | RESUS ---
CODE ASSIST ASSESSSMENT Initial Information Code Assist Date: May 12, 2024 Code Assist Time: 18:39 Location of Arrest: [facility] Room # 246a Provider Name LEAH Álvarez Time Notified: 18:40 Crash Cart Opened and Supplies: No Situation Staff concerned/worried, speci: SBP <90 or 10 from baseli Situation comment: Per primary RN patient noted to be less responsive that "normal" multiply episodes of hypotension systolic 70s with map less than 65 code assist paged Assessment Temperature (Fahrenheit): 98.0 Blood Pressure Systolic: 71 Blood Pressure Diastolic: 46 Respiratory Rate: 14 O2 Sat by Pulse Oximetry: 97 Bedside Blood Glucose: 200 Recommendations/Interventions Medications and Responses : ADULT Medications Given: levophed Route of Administration: IV EKG Rhythm: Atrial Fibrillation Blood Pressure Systolic: 83 Blood Pressure Diastolic: 48 Respiratory Rate: 14 O2 Sat by Pulse Oximetry: 97 Comment vitals after start of levo Procedures: Accu check, O2 Mask/NC Outcome Outcome: Transfer to ICU Team Members Team Members LEAH Stapleton COMMUNITY MUSIC THERAPISTTRAN Mcrae COMMUN[facility] MUSIC THERAPISTSbuha Stringer May 12, 2024 19:17
[2024-05-12] MEDS: SODIUM CHL 0.9% 1000 ML BAG XX ONE ×2 (20:09)
[2024-05-12] MEDS: NOREPINEPHRINE 8 MG/250ML KIT 250 ML IV ONE (20:11)
--- NOTE | 2024-05-12 21:32 | DVHPN2 ---
Reviewed: Care Plan, H&P, Labs, Medications, Previous Orders, Radiology, Other Changes from previous H/P or p: No Changes General: Per HPI Eyes: No Pain, No Vision change, No Conjunctivae inflammation, No Eyelid inflammation, No Other, No Redness ENT: No Ear pain, No Ear discharge, No Nose pain, No Nose discharge, No Nose congestion, No Mouth pain, No Mouth swelling, No Throat pain, No Throat swelling, No Other Cardiovascular: Edema Respiratory: Shortness of breath, Wheezing Gastrointestinal: No Nausea, No Vomiting, No Abdominal Pain, No Diarrhea, No Constipation, No Melena, No Hematochezia, No Other Genitourinary: No Dysuria, No Frequency, No Incontinence, No Hematuria, No Retention, No Other Musculoskeletal: No other, No neck pain, No shoulder pain, No arm pain, No back pain, No hand pain, No leg pain, No foot pain Skin: Lesions, Bruising Objective Vitals Vital Signs Date Time Temp Pulse Resp B/P (MAP) Pulse Ox O2 Delivery O2 Flow Rate FiO2 05/12/24 20:31 95/36 05/12/24 20:00 113 22 98 Non-Rebreather 15 N/A 05/12/24 19:15 98.1 98.1 Intake/Output Intake and Output 05/12/24 07:00 Intake Total 316 ml Output Total 0 ml Balance 316 ml Intake Oral 0 ml IV Total 316 ml Output Urine Total 0 ml Medications Current Medications Medications Dose Ordered Sig/Leonor Route Start Time Stop Time Status Last Admin Dose Admin Acetaminophen 650 mg Q6HP PRN PO 05/02/24 01:45 Morphine Sulfate 2 mg Q4HPRN PRN IV 05/02/24 01:45 05/07/24 22:20 2 MG Nitroglycerin 0.4 mg Q5MINP PRN SL 05/02/24 01:45 Guaifenesin 200 mg Q4HP PRN GT 05/02/24 08:30 Diagnostic Test (Pha) 1 strip Q6HR 05/02/24 18:00 05/12/24 17:41 1 STRIP Insulin Human Regular Q6HR SC 05/02/24 18:00 05/12/24 17:55 4 UNITS Dextrose 50 ml UD PRN IV 05/02/24 13:00 Nystatin 1 applic BID TOP 05/02/24 22:00 05/12/24 09:08 1 APPLIC Erythromycin 1 applic Q4HR OP 05/04/24 02:00 05/12/24 17:54 1 APPLIC Furosemide 60 mg DAILY IV 05/04/24 10:00 05/12/24 09:10 60 MG Methylprednisolone Sodium Succinate 40 mg BID IV 05/06/24 22:00 05/12/24 09:09 40 MG Acetylcysteine 100 mg Q6HWA NEB 05/06/24 18:00 05/12/24 11:43 100 MG Meropenem 50 ml @ 17 mls/hr Q12H IV 05/08/24 06:00 05/12/24 17:54 17 MLS/HR Vancomycin HCl 0 ml @ 0 mls/hr UD IV 05/09/24 16:15 Midodrine 10 mg TID@0600,1200,1800 PO 05/10/24 12:00 Levalbuterol HCl 1.25 mg Q6HR NEB 05/11/24 18:00 05/12/24 11:43 1.25 MG Ipratropium [place] 0.5 mg Q6HPRN PRN NEB 05/11/24 18:00 05/12/24 11:42 0.5 MG Lactulose 30 ml BIDP PRN PO 05/11/24 22:00 Amino Acids 0 ml @ 0 mls/hr PER PHARMACY IV 05/12/24 17:00 Amino Acids/ Electrolytes/ Dextrose 1,000 ml @ 41 mls/hr DAILY@2200 IV 05/12/24 22:00 Norepinephrine Bitartrate 250 ml @ 3.75 mls/hr Q24H IV 05/12/24 19:00 05/12/24 18:50 18.75 MLS/HR Laboratory Results Laboratory Tests 05/11/24 09:50 05/12/24 05:43 Chemistry Test 05/12/24 05:43 Calcium Level 9.2 mg/dL (8.7-10.4) Urinalysis Test 05/07/24 05:00 Urine Color [place] (Yellow) H Urine Clarity T[place] (Clear) H Urine pH 5.0 (5.0-9.0) Urine Specific [place] 1.030 (1.001-1.035) Urine Protein 1+ (Negative) H Urine Ketones Trace (Negative) Urine Blood 3+ /uL (Negative) H Urine Nitrite Negative (Negative) Urine Bilirubin Negative (Negative) Urine Urobilinogen 3 mg/dL (Negative) H Urine Leukocyte Esterase 2+ /uL (Negative) Urine RBC 6 /hpf (0 - 3) Urine Microscopic WBC 30 /HPF (0-3) H Urine Squamous Epithelial Cells Few /hpf (<5) Urine Bacteria Few /hpf (None Seen) H Urine Creatinine 96.62 mg/dL (30.0-125.0) Urine Sodium 32 mmol/L (40-220) L Urine Glucose 2+ mg/dL (Normal) H Microbiology Microbiology Date/Time Source Procedure Growth Status 05/05/24 05:10 Nose MRSA Screen - Final Complete 05/02/24 13:10 Pleural Fluid Gram Stain - Final Complete 05/02/24 13:10 Pleural Fluid Body Fluid Culture - Final Complete 05/02/24 08:07 Blood Blood Culture - Final Staphylococcus lugdunensis Complete Labs and/or images reviewed: Labs reviewed by me, Image(s) reviewed by me Assessment/Plan Assessment/Plan # metabolic encephalopathy: Likely due to retention of CO2, metabolic encephalopathy due to underlying infection likely contributing. This morning post BiPAP patient had improved ABG and had more conversations. # delirium: In-hospital patient has hyperactive delirium with agitation, please continue supportive care, frequent reorientation, sleep-wake cycle. If possible please move with the patient to the room as soon as possible. # New onset of AFib RVR: Noted on EKG and telemetry, started the patient on amiodarone drip, as per RACE II trial we will try to keep the heart rate below 110. Partially heart rate high due to underlying sepsis. Cardiology consulted looking for input. # possible pericardial effusion, no tamponade: Pending echo/TTE. # essential hypertension: Howe blood pressure 130/ 80 or below. We will hold antihypertensives for now in the setting of sepsis/ Hemodynamic instability # Possible diastolic heart failure: BNP mildly elevated in 500s, pending TTE # heart failure with reduced ejection fraction 20%, cause unknown, cardiology consulted looking for input, not a candidate for GDM T, but started the patient on IV Lasix 60 daily. # past 40 pack-year smoking history, quit less than 15 years back. # Known COPD: Questionable noncompliance, continue levalbuterol and ipratropium therapeutic breathing treatment, influenza and COVID negative # Respiratory deconditioning secondary due to previous COVID pneumonia # chronic hypoxic /hypercapnic respiratory failure : baseline oxygen 4-5 L [id number], We will try to keep the SpO2 between 88-92 % # Left-sided massive pleural effusion: Status post removal of 3800+ mL of pleural fluid by IR. Samples sent, check for serum LDH, protein, light's criteria. Follow the result. # Respiratory acidosis, improving with BiPAP, as needed anxiety medications. # acute Gram-positive Gram-negative bacterial pneumonia: Check MRSA, check sputum culture, keep the patient on broad-spectrum antibiotics with covering both Gram-negative and Gram-positive. # Likely, re-expansion pulmonary edema: Likely due to removal of moderate amount of pleural fluid . Please start IV methylprednisolone. Continue levalbuterol and # GERD/ GI prophylaxis:ppi prophylaxis to continue # Mild hyperbilirubinemia: Abdominal finding unremarkable. Follow up CMP daily. # intertrigo, continue nystatin powder # sepsis: Likely due to community-acquired pneumonia, continue IV vancomycin and meropenem for now, pancultures pending follow closely. # mild thrombocytopenia: Close monitoring of H&H, platelets, hold heparin and anticoagulation. Follow up platelets # Patient is likely intravascularly dry, carbon dioxide 34, due to contraction alkalosis at this point. Check CMP tomorrow. # ?previous history of diabetes: HbA1c 5.5 no treatment needed at this point: Howe BG in-hospital 140-180 # peripheral arterial disease: Bilateral lower limb Extremely poor vasculature, vascular surgery consulted. 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 Code status: Modified code status with DNI, ACLS and chest compression without defibrillation. Discussed with the patient and patient's caregiver, paperwork in file. Patient's immediate family is sister with whom the patient has spoke last time more than 2 years back, who will come from [place] to visit him the earliest possible on upcoming Sunday 05/0705/04/2024: continue on bipap, drip and Levophed awaiting for ICU bed continue with heparin drip and amiodarone 05/05/2024: continue with drips discussed with nursing at bedside discussed with family member 05/11/2024 remains to be on Clinimix 05/12/2024 pt needs long-term care and discussion with family regarding goal of care Plan discussed with: Other (nursing staff) My Orders Orders - LAKESHA HARE DO Procedure Category Date Status Time Clinimix Per Pharmacy PHA 05/12/24 In Process 17:00 Amino Acid Infusion PHA 05/12/24 In Process In D10w (Clinimix 4. 22:00 Comprehensive LAB 05/13/24 Verified Metabolic Panel 04:00 Phosphorus LAB 05/13/24 Verified 04:00 Magnesium LAB 05/13/24 Verified 04:00 Date of Service: May 12, 2024 Billing Provider: LAKESHA HARE DO Common Visit Codes: [id number] INP/OBS CARE(HIGH) LAKESHA HARE DO May 12, 2024 21:32
[2024-05-12] MEDS: AMINO ACID INFUSION IN D10W 1,000 ML IV SCH (22:38)
--- NOTE | 2024-05-12 22:51 | DVHPN2 ---
Progress Note - Dictate Date Seen: May 12, 2024 Has the PT tested + for MRSA If YES, has PT been informed?: No Medical Necessity Reason Pt with a Central, PICC or Fol: Yes The following are medically ne: Delacruz Catheter Reason for delacruz catheter: Strict I&O Subjective Patient seen and examined at bedside. On BiPAP Overnight events reviewed. vital signs Vital Sign Date Time Temp Pulse Resp B/P (MAP) Pulse Ox O2 Delivery O2 Flow Rate FiO2 05/12/24 22:00 98 20 68/34 (45) 98 05/12/24 20:00 Non-Rebreather 15 N/A 05/12/24 19:15 98.1 98.1 Total Intake and Output 05/11/24 05/11/24 05/12/24 15:00 23:00 07:00 Intake Total 50 ml 266 ml Output Total 0 ml 0 ml Balance 50 ml 266 ml medications Current Medications Medications Dose Ordered Sig/Leonor Route Start Time Stop Time Status Last Admin Dose Admin Acetaminophen 650 mg Q6HP PRN PO 05/02/24 01:45 Morphine Sulfate 2 mg Q4HPRN PRN IV 05/02/24 01:45 05/07/24 22:20 2 MG Nitroglycerin 0.4 mg Q5MINP PRN SL 05/02/24 01:45 Guaifenesin 200 mg Q4HP PRN GT 05/02/24 08:30 Diagnostic Test (Pha) 1 strip Q6HR 05/02/24 18:00 05/12/24 17:41 1 STRIP Insulin Human Regular Q6HR SC 05/02/24 18:00 05/12/24 17:55 4 UNITS Dextrose 50 ml UD PRN IV 05/02/24 13:00 Nystatin 1 applic BID TOP 05/02/24 22:00 05/12/24 21:59 1 APPLIC Erythromycin 1 applic Q4HR OP 05/04/24 02:00 05/12/24 21:59 1 APPLIC Furosemide 60 mg DAILY IV 05/04/24 10:00 05/12/24 09:10 60 MG Methylprednisolone Sodium Succinate 40 mg BID IV 05/06/24 22:00 05/12/24 21:58 40 MG Acetylcysteine 100 mg Q6HWA NEB 05/06/24 18:00 05/12/24 11:43 100 MG Meropenem 50 ml @ 17 mls/hr Q12H IV 05/08/24 06:00 05/12/24 17:54 17 MLS/HR Vancomycin HCl 0 ml @ 0 mls/hr UD IV 05/09/24 16:15 Midodrine 10 mg TID@0600,1200,1800 PO 05/10/24 12:00 Levalbuterol HCl 1.25 mg Q6HR NEB 05/11/24 18:00 05/12/24 11:43 1.25 MG Ipratropium [place] 0.5 mg Q6HPRN PRN NEB 05/11/24 18:00 05/12/24 11:42 0.5 MG Lactulose 30 ml BIDP PRN PO 05/11/24 22:00 Amino Acids 0 ml @ 0 mls/hr PER PHARMACY IV 05/12/24 17:00 Amino Acids/ Electrolytes/ Dextrose 1,000 ml @ 41 mls/hr DAILY@2200 IV 05/12/24 22:00 05/12/24 22:38 41 MLS/HR Norepinephrine Bitartrate 250 ml @ 3.75 mls/hr Q24H IV 05/12/24 19:00 05/12/24 18:50 18.75 MLS/HR objective Gen.: Patient lying in bed in no apparent distress. On BiPAP. Head: Normocephalic, atraumatic. Eyes: EOMI/PERRLA. Ears: Normal hearing. Normal anatomy. Neck/trachea: Trachea midline, supple. Nose: Normal external anatomy. Mouth: Moist mucous membranes. Chest: Decreased air entry bilaterally. No wheezing or rhonchi. Cardiovascular: Positive S1, positive S2. Regular rate and rhythm. Abdomen: Positive bowel sounds in all 4 quadrants. Soft, non-tender, non- distended. : Deferred. Rectal: Deferred. Skin: Warm, dry. Intact. Extremities: 2+ radial pulses bilaterally. No lower extremity edema. Neuro: Awake, alert, oriented x3. No gross motor or sensory deficits. Cranial nerves II through XII intact. Gait not assessed. laboratory and microbiology Laboratory Tests 05/12/24 05:43 05/11/24 09:50 Test 05/12/24 05:43 Range/Units Serum Glucose 158 H 74-106 mg/dL Assessment/Plan Impression: Pulmonary edema Pleural effusion, s/p thoracentesis Acute exacerbation of COPD Pneumonia CKD vs DEREJE Events: Remains on BiPAP CXR reviewed, notable for pulmonary edema. BiPAP changes were made. Interval improvement in ventilation after changes. Continue to monitor respiratory status closely. Okay to alternate with high flow O2 if tolerated. Patient is DNI. On pressors for hemodynamic support Levophed 18 mcg/min Titrate to keep mean arterial pressure greater than 65 mmHg. Continue antibiotics F/u cultures Continue IV steroids Continue bronchodilators Mucomyst/CPT to clear secretions Amiodarone drip Cardiology recs appreciated Labs reviewed Hemoglobin 11.5 Slight increase in WBC to 27.2 Diurese as tolerated w/ Lasix Monitor renal function Interval improvement in creatinine to 3.61 Monitor electrolytes. Supplement as necessary. Monitor ins and outs. HD catheter in place - HD per Nephrology Pt now DNR/DNI Comfort measures Family addressed goals of care. Labs and imaging reviewed. Rest of plan as noted below. Plan: Continue BiPAP Titrate Fi02 to sats 90% or above Continue supportive care Antibiotics for pneumonia F/u cultures IV steroids Continue bronchodilators Amiodarone drip Cardiology recs appreciated Diurese Monitor renal function Monitor electrolytes. Supplement as necessary. Monitor ins and outs. HD per Nephrology Follow up Nephrology recs DVT prophylaxis. Pt now DNR/DNI Comfort measures Prognosis: Poor given patient's multiple co-morbidities. Condition: Critical Rest of plan per hospitalist and other consultants. A total of 35 minutes of critical care time was spent reviewing the patient record, examining the patient, making a diagnostic and therapeutic plan, discussing this plan with the medical personnel, following up on diagnostic studies and following the patient for clinical stability excluding any and all procedures. At least 50% of this time was spent in direct, [id number] contact. Thank you for allowing me to participate in this patient's care. Further recommendations will depend on the patient's clinical course. Please do not hesitate to contact me if you have any questions or concerns. This medical document was created using an electronic medical record system with [employer] system. Although these documentations are being carefully reviewed, there may still be some phonetic and typographical changes. The errors are purely typographical, due to imperfection on the software program, and do not reflect any compromise in the patient's medical care. Dietary Evaluation Review Recommendations by RD: Dietary education by RD, Protein Supplementation Comments: 1) Initiate Omar @ 1 pk bid 2) Encourage good PO intake 3) Refer to outpatient RD/CDCES for weight management 4) Continue to monitor appetite, labs, and skin integrity Expected Outcomes/Goals: 1) appetite and labs to improve 2) wound to improve 3) f/u in 3-5 days Plan discussed with: Other ([place]) Critical Care Time(min): 35 TOM YEH MD May 12, 2024 22:51
[2024-05-13] VITALS (11 sets, daily range): BP systolic 0–64; BP diastolic 0–28; PULSE 84–102; RESP 10–18; O2SAT 66–100
== END 2024-05-13 02:00 | DRG 871 ==
LOC: ER 16:21 → EDBD 16:21 → OVERFLOW 05-02 01:40 → ICU CENTRL 05-05 17:30 → OVERFLOW 05-06 13:53 → DOU IN ICU 05-06 13:54 → TELE-EAST 05-08 17:44
PROVIDERS: ADMIT Internal Medicine; ATTEND Internal Medicine
PROC: 0W9B3ZZ Drainage of Left Pleural Cavity, Percutaneous Approach (ICD-10-PCS; 2024-05-02)
PROC: 5A09357 Assistance with Respiratory Ventilation, Less than 24 Consecutive Hours, Continuous Positive Airway Pressure (ICD-10-PCS; 2024-05-02)
PROC: 02HV33Z Insertion of Infusion Device into Superior Vena Cava, Percutaneous Approach (ICD-10-PCS; principal; 2024-05-03)
PROC: 5A09357 Assistance with Respiratory Ventilation, Less than 24 Consecutive Hours, Continuous Positive Airway Pressure (ICD-10-PCS; 2024-05-03)
PROC: 05HF33Z Insertion of Infusion Device into Left Cephalic Vein, Percutaneous Approach (ICD-10-PCS; 2024-05-04)
PROC: B54NZZA Ultrasonography of Left Upper Extremity Veins, Guidance (ICD-10-PCS; 2024-05-04)
PROC: 5A09357 Assistance with Respiratory Ventilation, Less than 24 Consecutive Hours, Continuous Positive Airway Pressure (ICD-10-PCS; 2024-05-05)
PROC: 02HV33Z Insertion of Infusion Device into Superior Vena Cava, Percutaneous Approach (ICD-10-PCS; 2024-05-06)
PROC: B548ZZA Ultrasonography of Superior Vena Cava, Guidance (ICD-10-PCS; 2024-05-06)
PROC: 5A09357 Assistance with Respiratory Ventilation, Less than 24 Consecutive Hours, Continuous Positive Airway Pressure (ICD-10-PCS; 2024-05-06)
PROC: 5A1D70Z Performance of Urinary Filtration, Intermittent, Less than 6 Hours Per Day (ICD-10-PCS; 2024-05-07)
PROC: 5A1D70Z Performance of Urinary Filtration, Intermittent, Less than 6 Hours Per Day (ICD-10-PCS; 2024-05-08)
PROC: 5A09357 Assistance with Respiratory Ventilation, Less than 24 Consecutive Hours, Continuous Positive Airway Pressure (ICD-10-PCS; 2024-05-09)
PROC: 5A1D70Z Performance of Urinary Filtration, Intermittent, Less than 6 Hours Per Day (ICD-10-PCS; 2024-05-09)
PROC: 5A09357 Assistance with Respiratory Ventilation, Less than 24 Consecutive Hours, Continuous Positive Airway Pressure (ICD-10-PCS; 2024-05-10)
PROC: 5A09357 Assistance with Respiratory Ventilation, Less than 24 Consecutive Hours, Continuous Positive Airway Pressure (ICD-10-PCS; 2024-05-10)
PROC: 5A09357 Assistance with Respiratory Ventilation, Less than 24 Consecutive Hours, Continuous Positive Airway Pressure (ICD-10-PCS; 2024-05-11)
PROC: 5A09357 Assistance with Respiratory Ventilation, Less than 24 Consecutive Hours, Continuous Positive Airway Pressure (ICD-10-PCS; 2024-05-11)
PROC: 5A09357 Assistance with Respiratory Ventilation, Less than 24 Consecutive Hours, Continuous Positive Airway Pressure (ICD-10-PCS; 2024-05-12)
PROC: 5A09357 Assistance with Respiratory Ventilation, Less than 24 Consecutive Hours, Continuous Positive Airway Pressure (ICD-10-PCS; 2024-05-12)
DX: A41.50 Gram-negative sepsis, unspecified (principal); G93.41 Metabolic encephalopathy; J15.69 Pneumonia due to other Gram-negative bacteria; I50.21 Acute systolic (congestive) heart failure; J96.21 Acute and chronic respiratory failure with hypoxia; J96.22 Acute and chronic respiratory failure with hypercapnia; J44.1 Chronic obstructive pulmonary disease with (acute) exacerbation; E87.4 Mixed disorder of acid-base balance; E87.29 Other acidosis; D68.69 Other thrombophilia; J44.0 Chronic obstructive pulmonary disease with (acute) lower respiratory infection; I13.0 Hypertensive heart and chronic kidney disease with heart failure and stage 1 through stage 4 chronic kidney disease, or unspecified chronic kidney disease; N17.9 Acute kidney failure, unspecified; Z66 Do not resuscitate; I48.91 Unspecified atrial fibrillation; Z20.822 Contact with and (suspected) exposure to COVID-19; E11.51 Type 2 diabetes mellitus with diabetic peripheral angiopathy without gangrene; E87.5 Hyperkalemia; E11.22 Type 2 diabetes mellitus with diabetic chronic kidney disease; L57.0 Actinic keratosis; L30.4 Erythema intertrigo; E66.9 Obesity, unspecified; N18.9 Chronic kidney disease, unspecified; K21.9 Gastro-esophageal reflux disease without esophagitis; D69.6 Thrombocytopenia, unspecified; Z68.33 Body mass index [BMI] 33.0-33.9, adult; Z99.81 Dependence on supplemental oxygen; Z86.16 Personal history of COVID-19; Z87.01 Personal history of pneumonia (recurrent); Z87.891 Personal history of nicotine dependence; E80.6 Other disorders of bilirubin metabolism
CPT/HCPCS: 32555; 36415; 36556; 36600; 71045; 71275; 76857; 76937; 76942; 80048; 80053; 80074; 80202; 80307; 81001; 82565; 82570; 82805; 82962; 83036; 83605; 83615; 83880; 83986; 84100; 84132; 84300; 84443; 84484; 85007; 85025; 85027; 85379; 85610; 85730; 87040; 87077; 87081; 87186; 87205; 87426; 87804; 89051; 90935; 92507; 92610; 93005; 93306; 93925; 93970; 94640; 94660; 94667; 94668; 96374; 97110; 97163; 97530; G0378; J1642; J1815; J2185; J2470; J3470; J3480; P9047